=== PATIENT | male | born 1940 | race Caucasian/White ===

== ENCOUNTER 2017-01-01 13:34 | Emergency (ER) | payer MEDICARE ==
[2017-01-01] MEDS ORDERED: IPRATROPIUM 0.5 MG/2.5 ML NEBU INHALATION STA (13:48)
[2017-01-01] MEDS ORDERED: SODIUM CHLORIDE 0.9% 1,000 ML IV STA (13:48)
[2017-01-01] MEDS ORDERED: ALBUTEROL NEBULIZED 2.5 MG/3 ML INHALATION STA (13:48)
--- NOTE | 2017-01-01 14:16 | ED ---
General Adult HPI - General Chief complaint: Shortness of Breath Stated complaint: SOB/Cogestion Time Seen by Provider: 01/01/17 13:47 Source: patient, RN notes reviewed, old records reviewed Mode of arrival: ambulatory Limitations: no limitations - History of Present Illness Initial comments: This is a 76-year-old male out of the ER for evaluation complaining of shortness of breath, congestion and cough. Patient has been outpatient treatment for pneumonia 3 although all of Augmentin, Z-Miguelito and Levaquin. Patient is continuing not to feel well, feels weak consistently short of breath and shortness of breath with exertion. Patient has episodic fevers, does become shaky, has a history of smoking no history of heart disease but no prior cardiac or hospital evaluation. At this time patient has no specific complaints and no pain no travel history no sick contacts - Related Data Home Medications Medication Instructions Recorded Confirmed No Known Home Medications [No 01/01/17 01/01/17 Known Home Medications] Allergies Allergy/AdvReac Type Severity Reaction Status Date / Time No Known Allergies Allergy Verified 01/01/17 14:49 Review of Systems ROS Statement: Those systems with pertinent positive or pertinent negative responses have been documented in the HPI. ROS Other: All systems not noted in ROS Statement are negative. Past Medical History Additional Past Medical History / Comment(s): pneumonia History of Any Multi-Drug Resistant Organisms: None Reported Past Surgical History: No Surgical Hx Reported Past Psychological History: No Psychological Hx Reported Smoking Status: Former smoker Past Alcohol Use History: None Reported, Rare Past Drug Use History: None Reported General Exam Limitations: no limitations General appearance: alert, in no apparent distress Head exam: Present: atraumatic, normocephalic, normal inspection Eye exam: Present: normal appearance, PERRL, EOMI. Absent: scleral icterus, conjunctival injection, periorbital swelling ENT exam: Present: normal exam, mucous membranes moist Neck exam: Present: normal inspection. Absent: tenderness, meningismus, lymphadenopathy Respiratory exam: Present: normal lung sounds bilaterally. Absent: respiratory distress, wheezes, rales, rhonchi, stridor Cardiovascular Exam: Present: regular rate, normal rhythm, normal heart sounds. Absent: systolic murmur, diastolic murmur, rubs, gallop, clicks GI/Abdominal exam: Present: soft, normal bowel sounds. Absent: distended, tenderness, guarding, rebound, rigid Extremities exam: Present: normal inspection, full ROM, normal capillary refill. Absent: tenderness, pedal edema, joint swelling, calf tenderness Back exam: Present: normal inspection Neurological exam: Present: alert, oriented X3, CN II-XII intact Psychiatric exam: Present: normal affect, normal mood Skin exam: Present: warm, dry, intact, normal color. Absent: rash Course Vital Signs 01/01/17 01/01/17 01/01/17 13:42 13:58 14:15 Temperature 99.1 F Pulse Rate 78 78 Respiratory 23 20 Rate Blood Pressure 93/59 O2 Sat by Pulse 96 Oximetry 01/01/17 01/01/17 01/01/17 14:19 14:36 15:28 Temperature Pulse Rate 78 78 91 Respiratory 20 20 Rate Blood Pressure 116/55 110/56 O2 Sat by Pulse 100 96 Oximetry - Reevaluation(s) Reevaluation #1: 01/01/17 14:52 Medical record reviewed including prior antibiotic use EKG Findings - EKG Comments: EKG Findings:: EKG shows normal sinus rhythm rate of 74, SC 140, QRS 86, QTC 441 Medical Decision Making - Medical Decision Making 70 formality ER for evaluation of weakness fatigue shortness of breath with exertion acute on chronic bronchitis with likely new diagnosis of bronchitis secondary to smoking, patient also flew positive, we'll treat her probably, patient follow-up with pulmonology - Lab Data Result diagrams: 01/01/17 14:10 01/01/17 14:10 Lab Results 01/01/17 01/01/17 01/01/17 Range/Units 14:10 14:10 14:10 WBC 6.6 (3.8-10.6) k/uL RBC 4.44 (4.30-5.90) m/uL Hgb 13.4 (13.0-17.5) gm/dL Hct 40.3 (39.0-53.0) % MCV 90.7 (80.0-100.0) fL MCH 30.2 (25.0-35.0) pg MCHC 33.3 (31.0-37.0) g/dL RDW 14.7 (11.5-15.5) % Plt Count 140 L (150-450) k/uL Neutrophils % 65 % Lymphocytes % 18 % Monocytes % 12 % Eosinophils % 1 % Basophils % 1 % Neutrophils # 4.3 (1.3-7.7) k/uL Lymphocytes # 1.2 (1.0-4.8) k/uL Monocytes # 0.8 (0-1.0) k/uL Eosinophils # 0.1 (0-0.7) k/uL Basophils # 0.0 (0-0.2) k/uL PT (9.0-12.0) sec INR (<1.1) APTT (22.0-30.0) sec D-Dimer (<0.60) mg/L FEU Sodium 138 (137-145) mmol/L Potassium 4.0 (3.5-5.1) mmol/L Chloride 104 (98-107) mmol/L Carbon Dioxide 26 (22-30) mmol/L Anion Gap 8 mmol/L BUN 14 (9-20) mg/dL Creatinine 0.96 (0.66-1.25) mg/dL Est GFR (MDRD) Af Amer >60 (>60 ml/min/1.73 sqM) Est GFR (MDRD) Non-Af >60 (>60 ml/min/1.73 sqM) Glucose 92 (74-99) mg/dL Calcium 9.1 (8.4-10.2) mg/dL Magnesium 2.0 (1.6-2.3) mg/dL Total Bilirubin 0.6 (0.2-1.3) mg/dL AST 19 (17-59) U/L ALT 26 (21-72) U/L Alkaline Phosphatase 62 (38-126) U/L Total Creatine Kinase 68 (55-170) U/L CK-MB (CK-2) 0.6 (0.0-2.4) ng/mL CK-MB (CK-2) Rel Index 0.9 Troponin I 0.014 (0.000-0.034) ng/mL NT-Pro-B Natriuret Pep pg/mL Total Protein 6.3 (6.3-8.2) g/dL Albumin 3.7 (3.5-5.0) g/dL Influenza Type A RNA (Not Detectd) Influenza Type B (PCR) (Not Detectd) 01/01/17 01/01/17 01/01/17 Range/Units 14:10 14:10 14:10 WBC (3.8-10.6) k/uL RBC (4.30-5.90) m/uL Hgb (13.0-17.5) gm/dL Hct (39.0-53.0) % MCV (80.0-100.0) fL MCH (25.0-35.0) pg MCHC (31.0-37.0) g/dL RDW (11.5-15.5) % Plt Count (150-450) k/uL Neutrophils % % Lymphocytes % % Monocytes % % Eosinophils % % Basophils % % Neutrophils # (1.3-7.7) k/uL Lymphocytes # (1.0-4.8) k/uL Monocytes # (0-1.0) k/uL Eosinophils # (0-0.7) k/uL Basophils # (0-0.2) k/uL PT 11.1 (9.0-12.0) sec INR 1.1 (<1.1) APTT 26.7 (22.0-30.0) sec D-Dimer 0.42 (<0.60) mg/L FEU Sodium (137-145) mmol/L Potassium (3.5-5.1) mmol/L Chloride (98-107) mmol/L Carbon Dioxide (22-30) mmol/L Anion Gap mmol/L BUN (9-20) mg/dL Creatinine (0.66-1.25) mg/dL Est GFR (MDRD) Af Amer (>60 ml/min/1.73 sqM) Est GFR (MDRD) Non-Af (>60 ml/min/1.73 sqM) Glucose (74-99) mg/dL Calcium (8.4-10.2) mg/dL Magnesium (1.6-2.3) mg/dL Total Bilirubin (0.2-1.3) mg/dL AST (17-59) U/L ALT (21-72) U/L Alkaline Phosphatase (38-126) U/L Total Creatine Kinase (55-170) U/L CK-MB (CK-2) (0.0-2.4) ng/mL CK-MB (CK-2) Rel Index Troponin I (0.000-0.034) ng/mL NT-Pro-B Natriuret Pep 2490 pg/mL Total Protein (6.3-8.2) g/dL Albumin (3.5-5.0) g/dL Influenza Type A RNA (Not Detectd) Influenza Type B (PCR) (Not Detectd) 01/01/17 Range/Units 14:15 WBC (3.8-10.6) k/uL RBC (4.30-5.90) m/uL Hgb (13.0-17.5) gm/dL Hct (39.0-53.0) % MCV (80.0-100.0) fL MCH (25.0-35.0) pg MCHC (31.0-37.0) g/dL RDW (11.5-15.5) % Plt Count (150-450) k/uL Neutrophils % % Lymphocytes % % Monocytes % % Eosinophils % % Basophils % % Neutrophils # (1.3-7.7) k/uL Lymphocytes # (1.0-4.8) k/uL Monocytes # (0-1.0) k/uL Eosinophils # (0-0.7) k/uL Basophils # (0-0.2) k/uL PT (9.0-12.0) sec INR (<1.1) APTT (22.0-30.0) sec D-Dimer (<0.60) mg/L FEU Sodium (137-145) mmol/L Potassium (3.5-5.1) mmol/L Chloride (98-107) mmol/L Carbon Dioxide (22-30) mmol/L Anion Gap mmol/L BUN (9-20) mg/dL Creatinine (0.66-1.25) mg/dL Est GFR (MDRD) Af Amer (>60 ml/min/1.73 sqM) Est GFR (MDRD) Non-Af (>60 ml/min/1.73 sqM) Glucose (74-99) mg/dL Calcium (8.4-10.2) mg/dL Magnesium (1.6-2.3) mg/dL Total Bilirubin (0.2-1.3) mg/dL AST (17-59) U/L ALT (21-72) U/L Alkaline Phosphatase (38-126) U/L Total Creatine Kinase (55-170) U/L CK-MB (CK-2) (0.0-2.4) ng/mL CK-MB (CK-2) Rel Index Troponin I (0.000-0.034) ng/mL NT-Pro-B Natriuret Pep pg/mL Total Protein (6.3-8.2) g/dL Albumin (3.5-5.0) g/dL Influenza Type A RNA Detected A (Not Detectd) Influenza Type B (PCR) Not Detected (Not Detectd) - Radiology Data Radiology results: report reviewed (Chest x-ray as no change from prior), image reviewed Disposition Clinical Impression: Acute exacerbation of chronic obstructive airways disease, Influenza A Disposition: HOME SELF-CARE Condition: Good Instructions: Acute Bronchitis (ED), Chronic Bronchitis (ED), Influenza (ED) Referrals: Waqar Rai Jr, [Primary Care Provider] - 1-2 days
[2017-01-01 14:33] LABS: Basophils % (A) 1 %; CH 30.9; CHCM 34.2; Eosinophils # (A) 0.1 k/uL (0-0.7); Eosinophils % (A) 1 %; HCT 40.3 % (39.0-53.0); HDW 2.48; HGB 13.4 gm/dL (13.0-17.5); Luc # (Auto) 0.19; Luc % (Auto) 3; Lymphocytes # (A) 1.2 k/uL (1.0-4.8); Lymphocytes % (A) 18 %; MCH 30.2 pg (25.0-35.0); MCHC 33.3 g/dL (31.0-37.0); MCV 90.7 fL (80.0-100.0); Mean Platelet Volume 8.7; Monocytes # (A) 0.8 k/uL (0-1.0); Monocytes % (A) 12 %; Neutrophils # (A) 4.3 k/uL (1.3-7.7); Neutrophils % (A) 65 %; RBC 4.44 m/uL (4.30-5.90); RDW 14.7 % (11.5-15.5); WBC 6.6 k/uL (3.8-10.6); WBC (Perox) 7.06
[2017-01-01 14:43] LABS: ALT 26 U/L (21-72); AST 19 U/L (17-59); Alkaline Phosphatase 62 U/L (38-126); Anion Gap 8 mmol/L; Blood Urea Nitrogen 14 mg/dL (9-20); Calcium 9.1 mg/dL (8.4-10.2); Carbon Dioxide 26 mmol/L (22-30); Chloride 104 mmol/L (98-107); Glucose 92 mg/dL (74-99); Non-African American GFR(MDRD) >60 (>60 ml/min/1.73 sqM); Sodium 138 mmol/L (137-145); Total Bilirubin 0.6 mg/dL (0.2-1.3); Total Protein 6.3 g/dL (6.3-8.2)
[2017-01-01 14:47] LABS: INR 1.1 (<1.1); Partial Thromboplastin Time 26.7 sec (22.0-30.0); Prothrombin Time 11.1 sec (9.0-12.0)
--- NOTE | 2017-01-01 15:02 | XR ---
EXAMINATION TYPE: XR chest 2V DATE OF EXAM: 01/01/2017 2:53 PM COMPARISON: None HISTORY: 76-year-old male difficulty breathing TECHNIQUE: PA and lateral views FINDINGS: The heart is upper limits of normal in size. Aorta within normal limits. There is interstitial promin ence and hyperinflation with flattening of the hemidiaphragms. Some patchy right lower lung opacity i s present. No pleural effusion. IMPRESSION: COPD with some patchy right lower lung atelectasis or infiltrate.
[2017-01-01] MEDS ORDERED: DEXAMETHASONE SOD PHOSPHATE 10 MG/ML 1 ML VIAL IV STA (15:03)
[2017-01-01 15:06] LABS: Creatine Kinase MB 0.6 ng/mL (0.0-2.4); Troponin I 0.014 ng/mL (0.000-0.034)
[2017-01-01 16:13] VITALS: BP 119/61; PULSE 100; RESP 18; TEMP 97
== END 2017-01-01 16:12 | disposition home or self-care (01) ==
LOC: EC 13:34
DX: J10.1 Influenza due to other identified influenza virus with other respiratory manifestations (principal); J44.1 Chronic obstructive pulmonary disease with (acute) exacerbation; Z87.891 Personal history of nicotine dependence; Z87.01 Personal history of pneumonia (recurrent)
CPT/HCPCS: 36415; 94644; 93005; 85379; 83880; 80053; 82550; 82553; 83735; 84484; 85025; 85610; 85730; 87040; 87502; 71020; 99285; 96374; 96361; J1100

== ENCOUNTER 2017-01-04 19:26 | Inpatient (IN) | payer MEDICARE ==
[2017-01-04] MEDS ORDERED: ACETAMINOPHEN TAB 500 MG TAB PO STA (20:36)
[2017-01-04] MEDS ORDERED: IPRATROPIUM-ALBUTEROL 3 ML NEB INHALATION STA (20:37)
--- NOTE | 2017-01-04 20:39 | ED ---
General Adult HPI - General Chief complaint: Shortness of Breath Stated complaint: BAILEY Time Seen by Provider: 01/04/17 20:31 Source: patient, RN notes reviewed Mode of arrival: ambulatory Limitations: no limitations - History of Present Illness Initial comments: Patient is a pleasant 76-year-old male presenting to the emergency department difficulty breathing. Patient has been dealing with pneumonia injury mainly for the past several weeks. Patient has seen his doctor for times. Patient was in the emergency department 3 days ago and diagnosed with influenza. Patient has had increased dyspnea since that time. Patient occasionally uses an inhaler however denies any chronic lung problems. Patient has had fevers however none in the past 3 or 4 days. - Related Data Home Medications Medication Instructions Recorded Confirmed Albuterol Inhaler [Ventolin Hfa 1 - 2 puff INHALATION RT-Q6H PRN 01/04/17 Inhaler] Ibuprofen [Motrin] 200 - 400 mg PO Q6HR PRN 01/04/17 01/04/17 predniSONE 50 mg PO HS 01/04/17 01/04/17 Allergies Allergy/AdvReac Type Severity Reaction Status Date / Time No Known Allergies Allergy Verified 01/04/17 20:54 Review of Systems ROS Statement: Those systems with pertinent positive or pertinent negative responses have been documented in the HPI. ROS Other: All systems not noted in ROS Statement are negative. Constitutional: Denies: fever Eyes: Denies: eye pain ENT: Denies: ear pain Respiratory: Reports: cough, dyspnea Cardiovascular: Denies: chest pain Endocrine: Reports: fatigue Gastrointestinal: Denies: abdominal pain Genitourinary: Denies: dysuria Musculoskeletal: Denies: back pain Skin: Denies: rash Neurological: Denies: weakness Past Medical History Additional Past Medical History / Comment(s): pneumonia History of Any Multi-Drug Resistant Organisms: None Reported Past Surgical History: Appendectomy Past Psychological History: No Psychological Hx Reported Smoking Status: Former smoker Past Alcohol Use History: None Reported, Rare Past Drug Use History: None Reported General Exam Limitations: no limitations General appearance: alert, in no apparent distress Head exam: Present: atraumatic Eye exam: Present: normal appearance, PERRL ENT exam: Present: normal oropharynx Neck exam: Present: normal inspection Respiratory exam: Present: wheezes Cardiovascular Exam: Present: regular rate, normal rhythm GI/Abdominal exam: Present: soft. Absent: tenderness Extremities exam: Present: normal inspection. Absent: pedal edema, calf tenderness Neurological exam: Present: alert Psychiatric exam: Present: normal affect, normal mood Skin exam: Absent: rash Course Vital Signs 01/04/17 01/04/17 01/04/17 19:44 21:14 21:25 Temperature 99.3 F Pulse Rate 112 H 110 H 110 H Respiratory 20 Rate Blood Pressure 122/77 O2 Sat by Pulse 94 L Oximetry 01/04/17 01/04/17 01/04/17 21:49 22:00 22:45 Temperature 102.2 F H Pulse Rate 101 H 84 Respiratory 20 18 Rate Blood Pressure 141/77 114/64 O2 Sat by Pulse 94 L 95 Oximetry - Reevaluation(s) Reevaluation #1: 01/04/17 22:26 Patient does meet sepsis criteria. IV antibiotics will be started. Dr. Adri gallegos. EKG Findings - EKG Comments: EKG Findings:: Sinus tachycardia 110. MA 156. QRS 80. QT 324. QTC 438. Left axis. Normal QRS. Nonspecific T waves. Medical Decision Making - Medical Decision Making Patient does meet sepsis criteria with pneumonia. Patient also has influenza. Case discussed in detail with Dr. Ty, who will admit for Dr. Rush. Consult for Dr. Posada. Admission orders written. IV antibiotics have been started. - Lab Data Result diagrams: 01/04/17 21:02 01/04/17 21:02 Lab Results 01/04/17 01/04/17 01/04/17 Range/Units 21:00 21:02 21:02 WBC 11.0 H (3.8-10.6) k/uL RBC 4.50 (4.30-5.90) m/uL Hgb 13.5 (13.0-17.5) gm/dL Hct 41.4 (39.0-53.0) % MCV 91.9 (80.0-100.0) fL MCH 30.1 (25.0-35.0) pg MCHC 32.7 (31.0-37.0) g/dL RDW 14.7 (11.5-15.5) % Plt Count 150 (150-450) k/uL Neutrophils % 79 % Lymphocytes % 12 % Monocytes % 7 % Eosinophils % 1 % Basophils % 0 % Neutrophils # 8.6 H (1.3-7.7) k/uL Lymphocytes # 1.3 (1.0-4.8) k/uL Monocytes # 0.8 (0-1.0) k/uL Eosinophils # 0.1 (0-0.7) k/uL Basophils # 0.0 (0-0.2) k/uL PT (9.0-12.0) sec INR (<1.1) APTT (22.0-30.0) sec Sodium (137-145) mmol/L Potassium (3.5-5.1) mmol/L Chloride (98-107) mmol/L Carbon Dioxide (22-30) mmol/L Anion Gap mmol/L BUN (9-20) mg/dL Creatinine (0.66-1.25) mg/dL Est GFR (MDRD) Af Amer (>60 ml/min/1.73 sqM) Est GFR (MDRD) Non-Af (>60 ml/min/1.73 sqM) Glucose (74-99) mg/dL Plasma Lactic Acid Nolberto (0.7-2.0) mmol/L Calcium (8.4-10.2) mg/dL Total Bilirubin (0.2-1.3) mg/dL AST (17-59) U/L ALT (21-72) U/L Alkaline Phosphatase (38-126) U/L Total Creatine Kinase 158 (55-170) U/L CK-MB (CK-2) 2.7 H* (0.0-2.4) ng/mL CK-MB (CK-2) Rel Index 1.7 Troponin I <0.012 (0.000-0.034) ng/mL NT-Pro-B Natriuret Pep pg/mL Total Protein (6.3-8.2) g/dL Albumin (3.5-5.0) g/dL Cortisol ug/dL Urine Color Urine Appearance (Clear) Urine pH (5.0-8.0) Ur Specific [place] (1.001-1.035) Urine Protein (Negative) Urine Glucose (UA) (Negative) Urine Ketones (Negative) Urine Blood (Negative) Urine Nitrate (Negative) Urine Bilirubin (Negative) Urine Urobilinogen (<2.0) mg/dL Ur Leukocyte Esterase (Negative) Influenza Type A RNA Detected A (Not Detectd) Influenza Type B (PCR) Not Detected (Not Detectd) 01/04/17 01/04/17 01/04/17 Range/Units 21:02 21:02 21:02 WBC (3.8-10.6) k/uL RBC (4.30-5.90) m/uL Hgb (13.0-17.5) gm/dL Hct (39.0-53.0) % MCV (80.0-100.0) fL MCH (25.0-35.0) pg MCHC (31.0-37.0) g/dL RDW (11.5-15.5) % Plt Count (150-450) k/uL Neutrophils % % Lymphocytes % % Monocytes % % Eosinophils % % Basophils % % Neutrophils # (1.3-7.7) k/uL Lymphocytes # (1.0-4.8) k/uL Monocytes # (0-1.0) k/uL Eosinophils # (0-0.7) k/uL Basophils # (0-0.2) k/uL PT 10.3 (9.0-12.0) sec INR 1.0 (<1.1) APTT 25.4 (22.0-30.0) sec Sodium 139 (137-145) mmol/L Potassium 3.8 (3.5-5.1) mmol/L Chloride 103 (98-107) mmol/L Carbon Dioxide 26 (22-30) mmol/L Anion Gap 10 mmol/L BUN 11 (9-20) mg/dL Creatinine 0.90 (0.66-1.25) mg/dL Est GFR (MDRD) Af Amer >60 (>60 ml/min/1.73 sqM) Est GFR (MDRD) Non-Af >60 (>60 ml/min/1.73 sqM) Glucose 100 H (74-99) mg/dL Plasma Lactic Acid Nolberto 1.2 (0.7-2.0) mmol/L Calcium 8.6 (8.4-10.2) mg/dL Total Bilirubin 0.6 (0.2-1.3) mg/dL AST 25 (17-59) U/L ALT 35 (21-72) U/L Alkaline Phosphatase 71 (38-126) U/L Total Creatine Kinase (55-170) U/L CK-MB (CK-2) (0.0-2.4) ng/mL CK-MB (CK-2) Rel Index Troponin I (0.000-0.034) ng/mL NT-Pro-B Natriuret Pep pg/mL Total Protein 6.5 (6.3-8.2) g/dL Albumin 3.9 (3.5-5.0) g/dL Cortisol 8 ug/dL Urine Color Urine Appearance (Clear) Urine pH (5.0-8.0) Ur Specific [place] (1.001-1.035) Urine Protein (Negative) Urine Glucose (UA) (Negative) Urine Ketones (Negative) Urine Blood (Negative) Urine Nitrate (Negative) Urine Bilirubin (Negative) Urine Urobilinogen (<2.0) mg/dL Ur Leukocyte Esterase (Negative) Influenza Type A RNA (Not Detectd) Influenza Type B (PCR) (Not Detectd) 01/04/17 01/04/17 Range/Units 21:02 21:02 WBC (3.8-10.6) k/uL RBC (4.30-5.90) m/uL Hgb (13.0-17.5) gm/dL Hct (39.0-53.0) % MCV (80.0-100.0) fL MCH (25.0-35.0) pg MCHC (31.0-37.0) g/dL RDW (11.5-15.5) % Plt Count (150-450) k/uL Neutrophils % % Lymphocytes % % Monocytes % % Eosinophils % % Basophils % % Neutrophils # (1.3-7.7) k/uL Lymphocytes # (1.0-4.8) k/uL Monocytes # (0-1.0) k/uL Eosinophils # (0-0.7) k/uL Basophils # (0-0.2) k/uL PT (9.0-12.0) sec INR (<1.1) APTT (22.0-30.0) sec Sodium (137-145) mmol/L Potassium (3.5-5.1) mmol/L Chloride (98-107) mmol/L Carbon Dioxide (22-30) mmol/L Anion Gap mmol/L BUN (9-20) mg/dL Creatinine (0.66-1.25) mg/dL Est GFR (MDRD) Af Amer (>60 ml/min/1.73 sqM) Est GFR (MDRD) Non-Af (>60 ml/min/1.73 sqM) Glucose (74-99) mg/dL Plasma Lactic Acid Nolberto (0.7-2.0) mmol/L Calcium (8.4-10.2) mg/dL Total Bilirubin (0.2-1.3) mg/dL AST (17-59) U/L ALT (21-72) U/L Alkaline Phosphatase (38-126) U/L Total Creatine Kinase (55-170) U/L CK-MB (CK-2) (0.0-2.4) ng/mL CK-MB (CK-2) Rel Index Troponin I (0.000-0.034) ng/mL NT-Pro-B Natriuret Pep 1820 pg/mL Total Protein (6.3-8.2) g/dL Albumin (3.5-5.0) g/dL Cortisol ug/dL Urine Color Yellow Urine Appearance Clear (Clear) Urine pH 5.5 (5.0-8.0) Ur Specific [place] 1.011 (1.001-1.035) Urine Protein Negative (Negative) Urine Glucose (UA) Negative (Negative) Urine Ketones Negative (Negative) Urine Blood Negative (Negative) Urine Nitrate Negative (Negative) Urine Bilirubin Negative (Negative) Urine Urobilinogen <2.0 (<2.0) mg/dL Ur Leukocyte Esterase Negative (Negative) Influenza Type A RNA (Not Detectd) Influenza Type B (PCR) (Not Detectd) - Radiology Data Radiology results: image reviewed (Chest x-ray shows bilateral pulmonary infiltrates.) Critical Care Time Critical Care Time: Yes Total Critical Care Time: 32 Disposition Clinical Impression: Pneumonia, Sepsis, Influenza Disposition: ADMITTED IP TO THIS HOSP
[2017-01-04] MEDS: SODIUM CHLORIDE 0.9% 500 ML IV SCH ×2 (21:10→21:11)
[2017-01-04 21:17] LABS: Basophils % (A) 0 %; CH 30.8; CHCM 33.7; Eosinophils # (A) 0.1 k/uL (0-0.7); Eosinophils % (A) 1 %; HCT 41.4 % (39.0-53.0); HDW 2.58; HGB 13.5 gm/dL (13.0-17.5); Luc % (Auto) 1; Lymphocytes # (A) 1.3 k/uL (1.0-4.8); Lymphocytes % (A) 12 %; MCH 30.1 pg (25.0-35.0); MCHC 32.7 g/dL (31.0-37.0); MCV 91.9 fL (80.0-100.0); Mean Platelet Volume 8.1; Monocytes # (A) 0.8 k/uL (0-1.0); Monocytes % (A) 7 %; Neutrophils # (A) 8.6 k/uL (1.3-7.7); Neutrophils % (A) 79 %; RDW 14.7 % (11.5-15.5); WBC (Perox) 10.71
[2017-01-04 21:22] LABS: Appearance,Urine Clear (Clear); Bilirubin,Urine Negative (Negative); Glucose,Urine (UA) Negative (Negative); Ketones,Urine Negative (Negative); Leukocyte Esterase,Urine Negative (Negative); Nitrite,Urine Negative (Negative); PH, Urine 5.5 (5.0-8.0); Protein,Urine Negative (Negative); Specific Gravity,Urine 1.011 (1.001-1.035); UA Billing (MACRO vs. MICRO) CHEM; Urobilinogen,Urine <2.0 mg/dL (<2.0)
[2017-01-04 21:28] LABS: ALT 35 U/L (21-72); AST 25 U/L (17-59); Alkaline Phosphatase 71 U/L (38-126); Anion Gap 10 mmol/L; Blood Urea Nitrogen 11 mg/dL (9-20); Calcium 8.6 mg/dL (8.4-10.2); Carbon Dioxide 26 mmol/L (22-30); Chloride 103 mmol/L (98-107); Glucose 100 mg/dL (74-99); Non-African American GFR(MDRD) >60 (>60 ml/min/1.73 sqM); Partial Thromboplastin Time 25.4 sec (22.0-30.0); Potassium 3.8 mmol/L (3.5-5.1); Prothrombin Time 10.3 sec (9.0-12.0); Sodium 139 mmol/L (137-145); Total Bilirubin 0.6 mg/dL (0.2-1.3); Total Protein 6.5 g/dL (6.3-8.2)
[2017-01-04 21:30] LABS: Creatine Kinase 158 U/L (55-170)
--- NOTE | 2017-01-04 21:41 | XR ---
EXAMINATION TYPE: XR chest 2V DATE OF EXAM: 01/04/2017 9:36 PM COMPARISON: 01/01/2017 HISTORY: Short of breath TECHNIQUE: Frontal and lateral views of the chest are obtained. FINDINGS: There is patchy bilateral pulmonary interstitial and alveolar infiltrates. Heart appears s lightly enlarged. There is very slight blunting of the costophrenic angles. There are no hilar masses . There are chest leads. IMPRESSION: There are new mild bilateral pulmonary infiltrates with small pleural effusions compared to last exam. This could relate to acute mild heart failure. Pneumonia cannot be excluded.
[2017-01-04 21:44] LABS: Troponin I <0.012 ng/mL (0.000-0.034)
[2017-01-04 21:45] LABS: Creatine Kinase MB 2.7 ng/mL (0.0-2.4)
[2017-01-04] MEDS ORDERED: LEVOFLOXACIN 750MG-D5W PMX 750 MG in DEXTROSE/WATER 1 150ML.BAG IVPB STA (22:26)
[2017-01-04] MEDS ORDERED: IBUPROFEN 600 MG TAB PO STA (22:37)
[2017-01-04] MEDS ORDERED: IPRATROPIUM-ALBUTEROL 3 ML NEB INHALATION PRN (22:55)
[2017-01-04] MEDS ORDERED: PIPERACILLIN-TAZOBACTAM 3.375 GM in DEXTROSE/WATER 1 50ML.BAG IVPB STA (22:55)
[2017-01-04] MEDS ORDERED: PNEUMONIA PROTOCOL UTILIZED 1 EACH MISC PO PRN (22:55)
[2017-01-04] MEDS: OSELTAMIVIR 75 MG CAP PO SCH (23:16)
[2017-01-04] MEDS: SODIUM CHLORIDE 0.9% 1,000 ML IV SCH (23:17)
[2017-01-04 23:50] VITALS: BMI 28.0
[2017-01-05 03:52] LABS: Creatine Kinase 138 U/L (55-170)
[2017-01-05 04:06] LABS: Creatine Kinase MB 1.8 ng/mL (0.0-2.4); Troponin I <0.012 ng/mL (0.000-0.034)
--- NOTE | 2017-01-05 08:02 | XR ---
EXAMINATION TYPE: XR chest 2V DATE OF EXAM: 01/05/2017 7:57 AM COMPARISON: 01/04/2017 HISTORY: Shortness of breath TECHNIQUE: Frontal and lateral views of the chest are obtained. FINDINGS: Scattered senescent parenchymal changes noted. Hyperinflation compatible with COPD. Stable scattered reticulonodular infiltrates. Heart size is stable. Mediastinal structures are stable and grossly unremarkable. No evidence for hilar prominence. Degenerative changes dorsal spine. IMPRESSION: 1. Stable chest.
[2017-01-05] MEDS: PIPERACILLIN-TAZOBACTAM 3.375 GM in DEXTROSE/WATER 1 50ML.BAG IVPB SCH ×2 (08:11→16:22)
[2017-01-05] MEDS: OSELTAMIVIR 75 MG CAP PO SCH ×2 (08:11→22:08)
[2017-01-05] MEDS: IPRATROPIUM-ALBUTEROL 3 ML NEB INHALATION SCH ×4 (08:45→19:26)
[2017-01-05 09:42] LABS: Creatine Kinase MB 2.3 ng/mL (0.0-2.4); Troponin I 0.013 ng/mL (0.000-0.034)
--- NOTE | 2017-01-05 11:59 | P.CNPUL ---
History of Present Illness Consult date: 01/05/17 Requesting physician: Sudeep Ty Reason for consult: abnormal CXR/CT (Patchy bilateral pulmonary interstitial and alveolar infiltrates) Chief complaint: Cough, congestion, shortness of breath History of present illness: This is a very pleasant 76-year-old gentleman who follows with Dr. Rai as his primary care physician. He is no significant medical history. He is on no home medications. He does have a 50+ years pack per day smoking history but denies any known COPD. He is not on any inhalers in the past. In November of this year he developed increasing shortness of breath cough and congestion. He was treated twice by his PCP and once in the emergency room without significant improvement. He presented here again yesterday with similar complaints of increasing shortness of breath cough and congestion. He was having worsening dyspnea on minimal activity. He has a loose productive cough of yellow sputum. No hemoptysis. His had a T-max of 102.2. Slightly tachycardic. Maintaining O2 saturations in the mid 90s on room air. White count 11.0. Lactic acid 1.2. He was found to be influenza A positive. ProBNP level 1820. His chest x-ray does show evidence of mild interstitial prominence and small pleural effusions. A recent chest x-ray also showed some patchy right lower lobe atelectasis/ infiltrate. The patient has been initiated on Tamiflu, Zosyn and Levaquin. Presently, he is sitting up in the chair at the bedside. He denies any worsening shortness of breath. He continues with a yellow productive sputum. No chills or night sweats. No diarrhea. Currently afebrile. Review of Systems 14 point review of system was conducted. All negative other than as mentioned in the HPI. Past Medical History Additional Past Medical History / Comment(s): pneumonia History of Any Multi-Drug Resistant Organisms: None Reported Past Surgical History: Appendectomy Past Anesthesia/Blood Transfusion Reactions: No Reported Reaction Past Psychological History: No Psychological Hx Reported Smoking Status: Former smoker Past Alcohol Use History: None Reported Past Drug Use History: None Reported - Past Family History Father Additional Family Medical History / Comment(s): EMPHYZEMA R/T WORK Medications and Allergies Home Medications Medication Instructions Recorded Confirmed Type Albuterol Inhaler [Ventolin Hfa 1 - 2 puff INHALATION RT-Q6H PRN 01/04/17 History Inhaler] Ibuprofen [Motrin] 200 - 400 mg PO Q6HR PRN 01/04/17 01/04/17 History predniSONE 50 mg PO HS 01/04/17 01/04/17 History Allergies Allergy/AdvReac Type Severity Reaction Status Date / Time No Known Allergies Allergy Verified 01/04/17 20:54 Physical Exam Vitals: Vital Signs Temp Pulse Pulse Resp BP BP Pulse Ox 01/05/17 07:00 98.2 F 99 16 118/76 97 01/05/17 02:32 84 01/05/17 02:30 97 01/05/17 02:29 87 01/04/17 23:20 98.3 F 88 18 131/64 94 L 01/04/17 22:55 97.9 F 86 18 106/68 91 L Intake and Output 01/04/17 01/05/17 01/05/17 22:59 06:59 14:59 Intake Total 1050 240 Output Total 600 Balance 1050 -360 Intake: IV 1050 Levofloxacin 750Mg-D5w 100 Pmx 750 mg In Dextrose/ Water 1 150ml.bag @ 100 mls/hr IVPB ONCE STA Rx#: [id number] Piperacillin-Tazobactam 3 50 .375 gm In Dextrose/Water 1 50ml.bag @ 12.5 mls/hr IVPB ONCE STA Rx#: [id number] Sodium Chloride 0.9% 1, 900 000 ml @ 100 mls/hr IV . Q10H [facility] Rx#:[id number] Oral 240 Output: Urine 600 Other: Voiding Method Toilet # Voids 3 Weight 86.183 kg GENERAL EXAM: Alert, comfortable in no apparent distress. HEAD: Normocephalic. EYES: Normal reaction of pupils, equal size. NOSE: Clear with pink turbinates. THROAT: No erythema or exudates. NECK: No masses, no JVD. CHEST: No chest wall deformity. LUNGS: Equal air entry with bilateral scattered rhonchi, faint crackles in the bases.. CVS: S1 and S2 normal with no audible murmurs, regular rhythm. ABDOMEN: No hepatosplenomegaly, normal bowel sounds, no guarding or rigidity. SPINE: No scoliosis or deformity SKIN: No rashes CENTRAL NERVOUS SYSTEM: No focal deficits, tone is normal in all 4 extremities. Extremities: There is no significant peripheral edema. No clubbing, no cyanosis. Peripheral pulses are intact. Results - Laboratory Findings CBC and BMP: 01/04/17 21:02 01/04/17 21:02 PT/INR, D-dimer PT 10.3 sec (9.0-12.0) 01/04/17 21:02 INR 1.0 (<1.1) 01/04/17 21:02 - Diagnostic Findings Chest x-ray: image reviewed Assessment and Plan Plan: Impression: #1 Dyspnea, multifactorial in a patient with suspected community-acquired pneumonia failed outpatient therapy, mild congestive heart failure, acute exacerbation of suspected chronic obstructive pulmonary disease, influenza A positivity. #2 Acute exacerbation of mild congestive heart failure, unclear if systolic versus diastolic and is not chronic in nature. #3 Acute exacerbation of suspected chronic obstructive pulmonary disease. #4 Chronic 50+ year pack per day smoking history. #5 Influenza A. Plan: The patient was seen and evaluated by Dr. Posada. His chest x-rays and labs were reviewed. We'll continue with his bronchodilators and current antibiotics in the form of Zosyn and Levaquin. We will give him a short course of steroids. He remains on Tamiflu. He may benefit from a dose of diuretics. An echocardiogram would be helpful to assess the patient's left ventricular systolic function. He is educated regarding the importance of complete smoking cessation. A NicoDerm patch has been offered. He would also benefit from a follow-up in our office to conduct full pulmonary function testing to evaluate for any chronic obstructive pulmonary disease and make recommendations for her maintenance medications. He remains on droplet precautions. We'll continue to follow make further recommendations based on his clinical status.
[2017-01-05] MEDS ORDERED: FUROSEMIDE 10 MG/ML 4 ML VIAL IV STA (12:02)
[2017-01-05] MEDS ORDERED: IBUPROFEN 400 MG TAB PO PRN (12:30)
--- NOTE | 2017-01-05 12:30 | P.HPIM ---
History of Present Illness H&P Date: 01/05/17 Chief Complaint: Shortness of breath Patient is a 76-year-old patient, patient of Dr. Rai in the outpatient setting, with medical history significant for pneumonia and previous nicotine dependence. Patient presented to the emergency department with complaints of difficulty breathing, cough and congestion. Onset of symptoms started approximately 3 weeks. Apparently patient was treated in the outpatient setting without significant improvement. Chest x-ray on admission with evidence of patchy bilateral pulmonary interstitial and alveolar infiltrates with small pleural effusions. Admission labs with evidence of mild leukocytosis and patient tested positive for influenza A. NT proBNP 1820. Patient did have a temperature of 102.2 upon admission with evidence of sinus tachycardia. Patient was admitted to the third floor with consult to Dr. Posada for pulmonary service. Upon examination, patient complains of shortness of breath with minimal activity. Patient reports productive sputum. Patient reports chills. Denies nausea, vomiting, chest pain, abdominal pain, numbness or tingling, leg swelling, constipation or diarrhea, new rashes or lesions. Patient reports good appetite. Patient currently oxygenating 97% on 2 L nasal cannula. Afebrile Patient has been initiated on antibiotics in the form of Levaquin, Zosyn, and Tamiflu. Repeat chest x-ray from this morning with evidence of hyperinflation compatible with COPD, and stable scattered reticulonodular infiltrates. Past Medical History Additional Past Medical History / Comment(s): pneumonia History of Any Multi-Drug Resistant Organisms: None Reported Past Surgical History: Appendectomy Past Anesthesia/Blood Transfusion Reactions: No Reported Reaction Past Psychological History: No Psychological Hx Reported Smoking Status: Former smoker Past Alcohol Use History: None Reported Past Drug Use History: None Reported - Past Family History Father Additional Family Medical History / Comment(s): EMPHYZEMA R/T WORK Medications and Allergies Home Medications Medication Instructions Recorded Confirmed Type Albuterol Inhaler [Ventolin Hfa 1 - 2 puff INHALATION RT-Q6H PRN 01/04/17 History Inhaler] Ibuprofen [Motrin] 200 - 400 mg PO Q6HR PRN 01/04/17 01/04/17 History predniSONE 50 mg PO HS 01/04/17 01/04/17 History Allergies Allergy/AdvReac Type Severity Reaction Status Date / Time No Known Allergies Allergy Verified 01/04/17 20:54 Physical Exam Vitals: Vital Signs Temp Pulse Pulse Resp BP BP Pulse Ox 01/05/17 07:00 98.2 F 99 16 118/76 97 01/05/17 02:32 84 01/05/17 02:30 97 01/05/17 02:29 87 01/04/17 23:20 98.3 F 88 18 131/64 94 L 01/04/17 22:55 97.9 F 86 18 106/68 91 L Intake and Output 01/04/17 01/05/17 01/05/17 22:59 06:59 14:59 Intake Total 1050 240 Output Total 600 Balance 1050 -360 Intake: IV 1050 Levofloxacin 750Mg-D5w 100 Pmx 750 mg In Dextrose/ Water 1 150ml.bag @ 100 mls/hr IVPB ONCE STA Rx#: [id number] Piperacillin-Tazobactam 3 50 .375 gm In Dextrose/Water 1 50ml.bag @ 12.5 mls/hr IVPB ONCE STA Rx#: [id number] Sodium Chloride 0.9% 1, 900 000 ml @ 100 mls/hr IV . Q10H [facility] Rx#:[id number] Oral 240 Output: Urine 600 Other: Voiding Method Toilet # Voids 3 Weight 86.183 kg GENERAL: Pt awake and alert, well-appearing, well-nourished, and in no acute distress. HEAD: Atraumatic, normocephalic. EYES: Pupils equal and round. Sclera anicteric, conjunctiva are normal. ENT: Moist mucous membranes. NECK:Normal range of motion, supple without lymphadenopathy or JVD. LUNGS: Breath sounds with scattered rhonchi to auscultation bilaterally. Crackles to posterior bases. HEART: Heart S1, S2, no S3 or S4. Regular rate and rhythm. No murmurs, rubs or gallops. ABDOMEN: Soft, nontender, nondistended, normoactive bowel sounds. No guarding, no rebound. No masses or organomegaly appreciated. EXTREMITIES: Palpable peripheral pulses. No edema. No calf tenderness. NEUROLOGICAL: Pt oriented x 3. No focal deficits. Strength and sensation grossly intact. PSYCH: Normal mood, normal affect. SKIN: Warm, dry, intact. Normal turgor. No rashes or lesions. Results CBC & Chem 7: 01/04/17 21:02 01/04/17 21:02 Chest x-ray: report reviewed Thrombosis Risk Factor Assmnt - DVT/VTE Prophylaxis DVT/VTE Prophylaxis: Low risk, early ambulation encouraged - Choose All That Apply Any of the Below Risk Factors Present?: No Other Risk Factors: Yes Each Risk Factor Represents 2 Points: Age 61-74 years Other congenital or acquired thrombophilia - If yes, enter type in comment: No Thrombosis Risk Factor Assessment Total Risk Factor Score: 2 Thrombosis Risk Factor Assessment Level: Low Risk Assessment and Plan Plan: Impression and plan: 1. Sepsis suspect secondary to bradycardia acquired pneumonia, failed outpatient treatment. Continue IV Levaquin and IV Zosyn for empiric coverage. 2. Acute congestive heart failure, type unknown. Echocardiogram pending. Lasix 40 mg IV given. 3. Influenza A. Continue Tamiflu 75 mg by mouth twice a day. 4. Acute exacerbation of COPD. Continue nebulized updraft treatments, supplemental oxygen, Solu-Medrol 60 mg IV every 6. 5. Nicotine dependence. Nicotine patch ordered. Smoking cessation encouraged. 6. DVT prophylaxis. Encourage early ambulation. 7. GI prophylaxis. Continue Pepcid 20 mg daily. Continue to monitor patient. Continue supportive treatment and pain management. Continue to follow with pulmonary service. Repeat CBC and BMP in a.m. The above impression and plan have been discussed and directed by Dr. Ty. Shelli CURRIE acting as scribe for Dr. Ty.
[2017-01-05] MEDS: SODIUM CHLORIDE 0.9% 1,000 ML IV SCH ×2 (13:15→22:04)
[2017-01-05] MEDS: methylPREDNISolone SOD SUCCI 125 MG/2 ML VIAL IV SCH ×2 (13:16→18:03)
[2017-01-05] MEDS: FAMOTIDINE 20 MG TAB PO SCH (13:35)
[2017-01-05] MEDS ORDERED: INSULIN LISPRO (humaLOG) 300 UNIT/3 ML VIAL SQ SCH (16:00)
[2017-01-05 17:25] LABS: Glucose,Whole Blood 136 mg/dL (75-99)
[2017-01-05] MEDS: INSULIN LISPRO (humaLOG) 300 UNIT/3 ML VIAL SQ SCH (18:03)
[2017-01-05 21:40] LABS: Hemoglobin A1C 5.5 % (4.2-6.1)
[2017-01-05] MEDS ORDERED: LEVOFLOXACIN 750MG-D5W PMX 750 MG in DEXTROSE/WATER 1 150ML.BAG IVPB SCH (22:00)
[2017-01-05] MEDS: LEVOFLOXACIN 750 MG TAB PO SCH (22:08)
[2017-01-06 00:55] LABS: Glucose,Whole Blood 181 mg/dL (75-99)
[2017-01-06] MEDS: methylPREDNISolone SOD SUCCI 125 MG/2 ML VIAL IV SCH ×5 (01:15→23:39)
[2017-01-06] MEDS: PIPERACILLIN-TAZOBACTAM 3.375 GM in DEXTROSE/WATER 1 50ML.BAG IVPB SCH ×4 (01:15→22:56)
[2017-01-06] MEDS: INSULIN LISPRO (humaLOG) 300 UNIT/3 ML VIAL SQ SCH ×5 (01:46→22:59)
[2017-01-06 06:12] LABS: Glucose,Whole Blood 131 mg/dL (75-99)
[2017-01-06] MEDS: SODIUM CHLORIDE 0.9% 1,000 ML IV SCH ×3 (06:15→22:56)
[2017-01-06 08:34] LABS: Basophils # (A) 0.1 k/uL (0-0.2); Basophils % (A) 2 %; CH 30.5; CHCM 33.6; Eosinophils % (A) 0 %; HCT 37.9 % (39.0-53.0); HDW 2.57; HGB 12.8 gm/dL (13.0-17.5); Luc # (Auto) 0.08; Luc % (Auto) 1; Lymphocytes # (A) 0.4 k/uL (1.0-4.8); Lymphocytes % (A) 7 %; MCH 30.8 pg (25.0-35.0); MCHC 33.8 g/dL (31.0-37.0); MCV 91.3 fL (80.0-100.0); Mean Platelet Volume 8.6; Monocytes # (A) 0.2 k/uL (0-1.0); Monocytes % (A) 4 %; Neutrophils # (A) 4.9 k/uL (1.3-7.7); Neutrophils % (A) 86 %; RBC 4.15 m/uL (4.30-5.90); RDW 14.5 % (11.5-15.5); WBC 5.7 k/uL (3.8-10.6); WBC (Perox) 6.19
[2017-01-06] MEDS: IPRATROPIUM-ALBUTEROL 3 ML NEB INHALATION SCH ×4 (08:40→20:30)
[2017-01-06 08:46] LABS: Anion Gap 9 mmol/L; Blood Urea Nitrogen 15 mg/dL (9-20); Calcium 8.4 mg/dL (8.4-10.2); Carbon Dioxide 29 mmol/L (22-30); Chloride 100 mmol/L (98-107); Glucose 138 mg/dL (74-99); Non-African American GFR(MDRD) >60 (>60 ml/min/1.73 sqM); Potassium 3.8 mmol/L (3.5-5.1); Sodium 138 mmol/L (137-145)
[2017-01-06] MEDS: FAMOTIDINE 20 MG TAB PO SCH (09:22)
[2017-01-06] MEDS: OSELTAMIVIR 75 MG CAP PO SCH ×2 (09:22→21:55)
--- NOTE | 2017-01-06 11:03 | ECHOF ---
Referral Reason:CHF MEASUREMENTS -------- HEIGHT: 175.3 cm WEIGHT: 86.2 kg BP: RVIDd: 2.6 cm (< 3.3) IVSd: 1.3 cm (0.6 - 1.1) LVIDd: 5.1 cm (3.9 - 5.3) LVPWd: 1.4 cm (0.6 - 1.1) IVSs: 1.8 cm LVIDs: 3.8 cm LVPWs: 1.4 cm LA Diam: 3.3 cm (2.7 - 3.8) LAESV Index (A-L): 33.13 ml/m Ao Diam: 2.8 cm (2.0 - 3.7) AV Cusp: 2.0 cm (1.5 - 2.6) LA Diam: 3.9 cm (2.7 - 3.8) MV EXCURSION: 15.618 mm (> 18.000) MV EF SLOPE: 75 mm/s (70 - 150) EPSS: 1.5 cm MV E Sheldon: 0.68 m/s MV DecT: 165 ms MV A Sheldon: 0.42 m/s MV E/A Ratio: 1.60 FINDINGS -------- Sinus rhythm. This was a technically good study. There is mild concentric left ventricular hypertrophy. There is severe global hypokinesis of LV . Overall left ventricular systolic function is moderate-severely impaired with, an EF between 30 - 35 %. Pseudonormal LV filling pattern, consistent with elevated LA pressure. The right ventricle is normal in size. LA is moderately dilated 34-39 ml/m2 The right atrial size is normal. There is mild aortic valve sclerosis. There is no evidence of aortic regurgitation. Mild mitral annular calcification present. [id number] mitral regurgitation is present. Trace tricuspid regurgitation present. There is no evidence of pulmonary hypertension. The right ventricular systolic pressure, as measured by Doppler, is {RVSP}. There is no pulmonic regurgitation present. The aortic root size is normal. The inferior vena cava is dilated with poor inspiratory collapse which is consistent with estimated right atrial pressure of 20 mmHg. There is no pericardial effusion. CONCLUSIONS -------- 1. There is mild concentric left ventricular hypertrophy. 2. There is no evidence of pulmonary hypertension. 3. The right ventricular systolic pressure, as measured by Doppler, is {RVSP}. 4. The inferior vena cava is dilated with poor inspiratory collapse which is consistent with estimated right atrial pressure of 20 mmHg. 5. There is severe global hypokinesis of LV . 6. Overall left ventricular systolic function is moderate-severely impaired with, an EF between 30 - 35 %. 7. Pseudonormal LV filling pattern, consistent with elevate LA pressure. 8. LA is moderately dilated 34-39 ml/m2 9. There is mild aortic valve sclerosis. 10. Mild mitral annular calcification present. 11. [id number]-wy-[id number] mitral regurgitation is present. 12. Trace tricuspid regurgitation present. [employer]: June Justice RDCS
[2017-01-06 11:39] LABS: Glucose,Whole Blood 147 mg/dL (75-99)
--- NOTE | 2017-01-06 14:08 | P.PN ---
Subjective This is a very pleasant 76-year-old gentleman who follows with Dr. Rai as his primary care physician. He is no significant medical history. He is on no home medications. He does have a 50+ years pack per day smoking history but denies any known COPD. He is not on any inhalers in the past. In November of this year he developed increasing shortness of breath cough and congestion. He was treated twice by his PCP and once in the emergency room without significant improvement. He presented here again yesterday with similar complaints of increasing shortness of breath cough and congestion. He was having worsening dyspnea on minimal activity. He has a loose productive cough of yellow sputum. No hemoptysis. His had a T-max of 102.2. Slightly tachycardic. Maintaining O2 saturations in the mid 90s on room air. White count 11.0. Lactic acid 1.2. He was found to be influenza A positive. ProBNP level 1820. His chest x-ray does show evidence of mild interstitial prominence and small pleural effusions. A recent chest x-ray also showed some patchy right lower lobe atelectasis/ infiltrate. The patient has been initiated on Tamiflu, Zosyn and Levaquin. Presently, he is sitting up in the chair at the bedside. He denies any worsening shortness of breath. He continues with a yellow productive sputum. No chills or night sweats. No diarrhea. Currently afebrile. The patient is seen again today 01/06/2017 in follow-up on the regular medical floor. He is awake and alert in no acute distress. He states he is breathing quite a bit better today as compared to yesterday. Less dyspnea on minimal exertion. Less cough and congestion. He denies any fever, chills or night sweats. No nausea, vomiting or diarrhea. He's been afebrile. Currently maintaining O2 saturations in the mid 90s on room air. No tachycardia, no tachypnea. Blood and sputum cultures are pending. Urine culture reveals no growth. Objective - Vital Signs Vital signs: Vital Signs Temp 96.9 F L 01/06/17 13:39 Pulse 74 01/06/17 13:39 Resp 17 01/06/17 13:39 BP 98/65 01/06/17 13:39 Pulse Ox 94 L 01/06/17 13:39 Intake & Output 01/05/17 01/06/17 01/06/17 18:59 06:59 18:59 Intake Total 600 400 720 Output Total 1200 600 Balance -600 -200 720 Intake: IV 400 Sodium Chloride 0.9% 1, 400 000 ml @ 100 mls/hr IV . Q10H [facility] Rx#:[id number] Oral 600 720 Output: Urine 1200 600 Other: Voiding Method Urinal Urinal # Voids 2 - Exam GENERAL EXAM: Alert, comfortable in no apparent distress. HEAD: Normocephalic. EYES: Normal reaction of pupils, equal size. NOSE: Clear with pink turbinates. THROAT: No erythema or exudates. NECK: No masses, no JVD. CHEST: No chest wall deformity. LUNGS: Equal air entry with crackles in the left lung base. Diminished. CVS: S1 and S2 normal with no audible murmurs, regular rhythm. ABDOMEN: No hepatosplenomegaly, normal bowel sounds, no guarding or rigidity. SPINE: No scoliosis or deformity SKIN: No rashes CENTRAL NERVOUS SYSTEM: No focal deficits, tone is normal in all 4 extremities. Extremities: There is no significant peripheral edema. No clubbing, no cyanosis. Peripheral pulses are intact. - Labs CBC & Chem 7: 01/06/17 08:01 01/06/17 08:01 Labs: Abnormal Lab Results - Last 24 Hours (Table) 01/05/17 01/06/17 01/06/17 Range/Units 17:24 00:52 05:53 RBC (4.30-5.90) m/uL Hgb (13.0-17.5) gm/dL Hct (39.0-53.0) % Lymphocytes # (1.0-4.8) k/uL Glucose (74-99) mg/dL POC Glucose (mg/dL) 136 H 181 H 131 H (75-99) mg/dL 01/06/17 01/06/17 01/06/17 Range/Units 08:01 08:01 11:33 RBC 4.15 L (4.30-5.90) m/uL Hgb 12.8 L (13.0-17.5) gm/dL Hct 37.9 L (39.0-53.0) % Lymphocytes # 0.4 L (1.0-4.8) k/uL Glucose 138 H (74-99) mg/dL POC Glucose (mg/dL) 147 H (75-99) mg/dL Assessment and Plan Plan: Impression: #1 Dyspnea, multifactorial in a patient with suspected community-acquired pneumonia failed outpatient therapy, mild congestive heart failure, acute exacerbation of suspected chronic obstructive pulmonary disease, influenza A positivity. #2 Acute exacerbation of systolic congestive heart failure. Echocardiogram revealed severe global hypokinesia with moderate to severe. Left ventricular systolic function with estimated ejection fraction 30-35%. #3 Acute exacerbation of suspected chronic obstructive pulmonary disease. #4 Chronic 50+ year pack per day smoking history. #5 Influenza A. Plan: The patient was seen and evaluated by Dr. Posada. His echocardiogram was reviewed and there is severe global hypokinesia and an moderate to severely impaired left ventricular systolic function. A cardiology consult would be beneficial. The patient is improved today as compared to yesterday. We'll continue with his bronchodilators and current antibiotics in the form of Zosyn and Levaquin. We will give him a short course of steroids. He remains on Tamiflu. He is educated regarding the importance of complete smoking cessation. A NicoDerm patch has been offered. He remains on droplet precautions. We'll continue to follow make further recommendations based on his clinical status.
--- NOTE | 2017-01-06 14:22 | P.PN ---
Subjective Principal diagnosis: Pneumonia Patient is a 76-year-old patient, patient of Dr. Rai in the outpatient setting, with medical history significant for pneumonia and previous nicotine dependence. Patient presented to the emergency department with complaints of difficulty breathing, cough and congestion. Onset of symptoms started approximately 3 weeks. Apparently patient was treated in the outpatient setting without significant improvement. Patient was found to have evidence of sepsis secondary to community-acquired pneumonia, failed outpatient treatment and acute exacerbation of COPD. In addition patient tested positive for influenza A. Patient also had evidence of acute congestive heart failure with left ventricular systolic function moderate to severely impaired with an EF between 30-35% with no evidence of pulmonary hypertension. Patient was admitted to the medical floor with consult to Dr. Posada for pulmonary service. Consult has been requested for cardiology concerning new onset heart failure. Upon examination, patient reports improvement in breathing. Patient reports productive cough with thick yellow sputum. Denies nausea, vomiting, chest pain, abdominal pain, numbness or tingling, leg swelling, constipation or diarrhea. Patient reports good appetite. Patient currently oxygenating 94% on room air. Afebrile No evidence of leukocytosis. Objective - Vital Signs Vital signs: Vital Signs Temp 96.9 F L 01/06/17 13:39 Pulse 74 01/06/17 13:39 Resp 17 01/06/17 13:39 BP 98/65 01/06/17 13:39 Pulse Ox 94 L 01/06/17 13:39 Intake & Output 01/05/17 01/06/17 01/06/17 18:59 06:59 18:59 Intake Total 600 400 720 Output Total 1200 600 Balance -600 -200 720 Intake: IV 400 Sodium Chloride 0.9% 1, 400 000 ml @ 100 mls/hr IV . Q10H [facility] OF [facility] Rx#:[id number] Oral 600 720 Output: Urine 1200 600 Other: Voiding Method Urinal Urinal # Voids 2 - Exam GENERAL: Pt awake and alert, well-appearing, well-nourished, and in no acute distress. HEAD: Atraumatic, normocephalic. EYES: Pupils equal and round. Sclera anicteric, conjunctiva are normal. ENT: Moist mucous membranes. NECK:Normal range of motion, supple without lymphadenopathy or JVD. LUNGS: Breath sounds with scattered rhonchi to auscultation bilaterally with pronounced on the left side. HEART: Heart S1, S2, no S3 or S4. Regular rate and rhythm. No murmurs, rubs or gallops. ABDOMEN: Soft, nontender, nondistended, normoactive bowel sounds. No guarding, no rebound. No masses or organomegaly appreciated. EXTREMITIES: Palpable peripheral pulses. No edema. No calf tenderness. NEUROLOGICAL: Pt oriented x 3. No focal deficits. Strength and sensation grossly intact. PSYCH: Normal mood, normal affect. SKIN: Warm, dry, intact. Normal turgor. No rashes or lesions. - Labs CBC & Chem 7: 01/06/17 08:01 01/06/17 08:01 Labs: Abnormal Lab Results - Last 24 Hours (Table) 01/05/17 01/06/17 01/06/17 Range/Units 17:24 00:52 05:53 RBC (4.30-5.90) m/uL Hgb (13.0-17.5) gm/dL Hct (39.0-53.0) % Lymphocytes # (1.0-4.8) k/uL Glucose (74-99) mg/dL POC Glucose (mg/dL) 136 H 181 H 131 H (75-99) mg/dL 01/06/17 01/06/17 01/06/17 Range/Units 08:01 08:01 11:33 RBC 4.15 L (4.30-5.90) m/uL Hgb 12.8 L (13.0-17.5) gm/dL Hct 37.9 L (39.0-53.0) % Lymphocytes # 0.4 L (1.0-4.8) k/uL Glucose 138 H (74-99) mg/dL POC Glucose (mg/dL) 147 H (75-99) mg/dL Assessment and Plan Plan: Impression and plan: 1. Sepsis suspect secondary to bradycardia acquired pneumonia, failed outpatient treatment. Continue IV Levaquin and IV Zosyn for empiric coverage. Sputum culture pending. 2. Acute systolic congestive heart failure. Cardiology consult requested, recommendations pending. 3. Influenza A. Continue Tamiflu 75 mg by mouth twice a day. 4. Acute exacerbation of COPD. Continue nebulized updraft treatments, supplemental oxygen, Solu-Medrol 60 mg IV every 6 hours. Pulmonary service is following patient, will look for tapering of steroids when appropriate. 5. Nicotine dependence. Nicotine patch ordered. Smoking cessation encouraged. 6. DVT prophylaxis. Encourage early ambulation. 7. GI prophylaxis. Continue Pepcid 20 mg daily. Continue to monitor patient. Continue supportive treatment and pain management. Continue to follow with pulmonary service. Repeat CBC and BMP in a.m. The above impression and plan have been discussed and directed by Dr. Ty. Shelli CURRIE acting as scribe for Dr. Ty.
[2017-01-06 16:31] LABS: Glucose,Whole Blood 127 mg/dL (75-99)
[2017-01-06 20:43] LABS: Glucose,Whole Blood 178 mg/dL (75-99)
[2017-01-06] MEDS: LEVOFLOXACIN 750 MG TAB PO SCH (21:55)
[2017-01-07] MEDS: methylPREDNISolone SOD SUCCI 125 MG/2 ML VIAL IV SCH (06:09)
[2017-01-07 07:04] LABS: Basophils % (A) 0 %; CH 30.6; CHCM 32.9; Eosinophils % (A) 0 %; HCT 40.9 % (39.0-53.0); HGB 13.1 gm/dL (13.0-17.5); Luc # (Auto) 0.14; Luc % (Auto) 1; Lymphocytes # (A) 0.8 k/uL (1.0-4.8); Lymphocytes % (A) 6 %; MCV 93.6 fL (80.0-100.0); Mean Platelet Volume 7.7; Monocytes # (A) 0.5 k/uL (0-1.0); Monocytes % (A) 4 %; Neutrophils # (A) 11.5 k/uL (1.3-7.7); Neutrophils % (A) 89 %; RBC 4.37 m/uL (4.30-5.90); RDW 14.6 % (11.5-15.5); WBC (Perox) 14.11
[2017-01-07 07:15] LABS: Glucose,Whole Blood 148 mg/dL (75-99)
[2017-01-07 07:17] LABS: Anion Gap 12 mmol/L; Blood Urea Nitrogen 18 mg/dL (9-20); Calcium 8.6 mg/dL (8.4-10.2); Carbon Dioxide 25 mmol/L (22-30); Chloride 102 mmol/L (98-107); Glucose 143 mg/dL (74-99); Non-African American GFR(MDRD) >60 (>60 ml/min/1.73 sqM); Potassium 3.5 mmol/L (3.5-5.1); Sodium 139 mmol/L (137-145)
[2017-01-07] MEDS: INSULIN LISPRO (humaLOG) 300 UNIT/3 ML VIAL SQ SCH ×4 (08:17→22:08)
[2017-01-07] MEDS: OSELTAMIVIR 75 MG CAP PO SCH ×2 (08:17→22:08)
[2017-01-07] MEDS: FAMOTIDINE 20 MG TAB PO SCH (08:17)
[2017-01-07] MEDS: IPRATROPIUM-ALBUTEROL 3 ML NEB INHALATION SCH ×4 (08:45→20:29)
[2017-01-07] MEDS: PIPERACILLIN-TAZOBACTAM 3.375 GM in DEXTROSE/WATER 1 50ML.BAG IVPB SCH ×2 (10:04→15:47)
--- NOTE | 2017-01-07 10:55 | CONS ---
DATE OF CONSULTATION: Mr. Magana is a 76-year-old gentleman who is seen for cardiac evaluation. This patient gives a history that he has been having a problem of cough and shortness of breath over the last one month with congestion. Patient has been treated for pneumonia as an outpatient for one month with different antibiotics. He continues to have shortness of breath with activities as well as orthopnea and PND. Patient denied any chest pain. He did have some temperature as an outpatient since admission in the hospital. He is afebrile. He nasal swab is positive for influenza. Patient denies any history of diabetes or hypertension. There is no prior history of myocardial infarction. Echocardiogram was done which showed evidence of moderate to severely impaired left ventricular systolic function with evidence of elevated left atrial pressure. Patient's the BNP level was 1820. Patient currently has been getting Tamiflu, Zosyn and Levaquin. Patient has a history of 50 year pack history of smoking. Past medical history includes questionable pneumonia, appendectomy. Patient's home medications included albuterol inhaler p.r.n. Patient was also treated with steroid as an outpatient. Physical examination at present reveals a 76-year-old gentleman who does not appear to be in any acute distress at present. Patient is afebrile. Blood pressure is 118/90 mmHg, heart rate is 106 per minute. Head/ENT examination is negative. Neck is supple. Jugular venous pressure is elevated up to the angle of the jaw. Both the carotid pulses are felt. There is no bruit. Chest is symmetrical. HEART: The PMI is not felt. First and second heart sounds are normal. No significant murmurs are noted. Lung examination reveals a few scattered wheezes and bilateral basal rales. Abdomen is soft. Liver and spleen are not enlarged. There is no evidence of any leg edema. Peripheral pulsations are 1+. EKG shows evidence of sinus tachycardia. Patient's BNP level was 1820. Chest x-ray shows diffuse ( ) pattern. There is no definite active infiltrate to suggest ongoing consolidation; underlying mild heart failure cannot be entirely excluded. FINAL IMPRESSION: This patient has been admitted with cough, congestion and shortness of breath, which appears to be multifactorial. Patient has been treated for pneumonia as well as influenza. Patient possibly has underlying left ventricular failure. Echocardiogram shows evidence of moderate to severely impaired left ventricular systolic function and patient's proBNP level is elevated. RECOMMENDATIONS: I will recommend to treat the patient with Lasix 40 mg q.12 hourly. We will start the patient on Entresto 24-26 mg 1 tablet twice a day and Toprol XL 25 mg daily. If bed is available, we will transfer the patient to selective care unit and we will follow the patient. After patient's condition is stabilized, he will need evaluation with a stress test and possible cardiac catheterization to evaluate the patient's cardiomyopathy.
[2017-01-07] MEDS: SODIUM CHLORIDE 0.9% 1,000 ML IV SCH ×2 (11:22→11:49)
--- NOTE | 2017-01-07 11:27 | P.PN ---
Subjective Principal diagnosis: Pneumonia, heart failure Patient is a 76-year-old patient, patient of Dr. Rai in the outpatient setting, with medical history significant for pneumonia and previous nicotine dependence. Patient presented to the emergency department with complaints of difficulty breathing, cough and congestion. Onset of symptoms started approximately 3 weeks. Apparently patient was treated in the outpatient setting without significant improvement. Patient was found to have evidence of sepsis secondary to community-acquired pneumonia, failed outpatient treatment and acute exacerbation of COPD. In addition patient tested positive for influenza A. Patient also had evidence of acute congestive heart failure with left ventricular systolic function moderate to severely impaired with an EF between 30-35% with no evidence of pulmonary hypertension. Patient was admitted to the medical floor with consult to Dr. Posada for pulmonary service. Consult has been requested for cardiology concerning new onset heart failure. Upon examination, patient reports improvement in breathing. Patient reports a runny nose but states coughing has decreased. Denies nausea, vomiting, chest pain, abdominal pain, numbness or tingling, leg swelling, constipation or diarrhea. Patient reports good appetite. Patient currently oxygenating 95% on room air. Patient has been evaluated by cardiology who started patient on entrust oh, Lasix, and Toprol. Patient is currently awaiting transfer to selective care unit where he'll need evaluation with a stress test and possible cardiac catheterization to evaluate patient's cardiomyopathy per cardiology service. Preliminary blood cultures were no growth after 48 hours. Urine culture negative. Gram stain culture pending. Objective - Vital Signs Vital signs: Vital Signs Temp 98.6 F 01/07/17 07:00 Pulse 89 01/07/17 10:44 Resp 16 01/07/17 08:00 BP 118/90 01/07/17 07:00 Pulse Ox 95 01/07/17 07:00 Intake & Output 01/06/17 01/07/17 01/07/17 18:59 06:59 18:59 Intake Total 2500 1490 480 Balance 2500 1490 480 Intake: IV 600 900 Sodium Chloride 0.9% 1, 600 900 000 ml @ 100 mls/hr IV . Q10H [facility] Rx#:[id number] Oral 1900 590 480 Other: Voiding Method Urinal Urinal Urinal # Voids 3 - Exam GENERAL: Pt awake and alert, well-appearing, well-nourished, and in no acute distress. HEAD: Atraumatic, normocephalic. EYES: Pupils equal and round. Sclera anicteric, conjunctiva are normal. ENT: Moist mucous membranes. NECK:Normal range of motion, supple without lymphadenopathy or JVD. LUNGS: Breath sounds essentially clear to auscultation bilaterally. HEART: Heart S1, S2, no S3 or S4. Regular rate and rhythm. No murmurs, rubs or gallops. ABDOMEN: Soft, nontender, nondistended, normoactive bowel sounds. No guarding, no rebound. No masses or organomegaly appreciated. EXTREMITIES: Palpable peripheral pulses. No edema. No calf tenderness. NEUROLOGICAL: Pt oriented x 3. No focal deficits. Strength and sensation grossly intact. PSYCH: Normal mood, normal affect. SKIN: Warm, dry, intact. Normal turgor. No rashes or lesions. - Labs CBC & Chem 7: 01/07/17 06:45 01/07/17 06:45 Labs: Abnormal Lab Results - Last 24 Hours (Table) 01/06/17 01/06/17 01/06/17 Range/Units 11:33 16:29 20:41 WBC (3.8-10.6) k/uL Neutrophils # (1.3-7.7) k/uL Lymphocytes # (1.0-4.8) k/uL Glucose (74-99) mg/dL POC Glucose (mg/dL) 147 H 127 H 178 H (75-99) mg/dL 01/07/17 01/07/17 01/07/17 Range/Units 06:45 06:45 07:12 WBC 13.0 H (3.8-10.6) k/uL Neutrophils # 11.5 H (1.3-7.7) k/uL Lymphocytes # 0.8 L (1.0-4.8) k/uL Glucose 143 H (74-99) mg/dL POC Glucose (mg/dL) 148 H (75-99) mg/dL Assessment and Plan Plan: Impression and plan: 1. Sepsis suspect secondary to community acquired pneumonia, failed outpatient treatment. Continue IV Levaquin and IV Zosyn for empiric coverage. Sputum culture pending. Preliminary blood culture no growth, urine culture negative. 2. Acute systolic congestive heart failure. Cardiology consult requested, recommendations noted. Patient has been started on Lasix 40 mg IV every 12, metoprolol 25 mg by mouth daily, and Entresto 24mg-[address] chest has been ordered by cardiology, results pending. 3. Influenza A. Continue Tamiflu 75 mg by mouth twice a day. 4. Acute exacerbation of COPD. Continue nebulized updraft treatments, supplemental oxygen, Solu-Medrol 60 mg IV every 6 hours. Pulmonary service is following patient, will look for tapering of steroids when appropriate. 5. Nicotine dependence. Nicotine patch ordered. Smoking cessation encouraged. 6. DVT prophylaxis. Encourage early ambulation. 7. GI prophylaxis. Continue Pepcid 20 mg daily. Continue to monitor patient. Continue supportive treatment and pain management. Continue to follow with pulmonary service. Repeat CBC and BMP in a.m. The above impression and plan have been discussed and directed by Dr. Ty. Shelli CURRIE acting as scribe for Dr. Ty.
[2017-01-07 11:30] LABS: Glucose,Whole Blood 186 mg/dL (75-99)
--- NOTE | 2017-01-07 11:31 | CT ---
EXAMINATION TYPE: CT chest wo con DATE OF EXAM: 01/07/2017 11:09 AM COMPARISON: NONE HISTORY: Patient poor historian. Heart failure. CT DLP: 421.1 mGycm, Automated exposure control for dose reduction was used. CONTRAST: None TECHNIQUE: Axial images were obtained at 5 mm thick sections. Reconstructed images are reviewed on [employer] computer in the coronal plane. FINDINGS: Portion of the thyroid visualized is normal. There is a 0.4 cm nodule within the left mid lung. Series 4 image 27. 0.5 cm nodules in the periphery of the right middle lobe. Series 4 image 29. At the same level a 0.3 cm nodules in the periphery of the lingula. There is a small density measuring 0.3 cm within the periphery of the right middle lobe. Series 4 image 43. Calcification is in the right lower lobe measuring 0.3 cm. Image 39 series 4. Str eak atelectasis in the posterior medial right lung base and at the posterior left base. Some left inf rahilar calcified lymph nodes may be present. No enlarged mediastinal or hilar adenopathy is evident. Couple of small shoddy lymph nodes are pres ent within the pretracheal space. Note is made of coronary artery calcification. The ascending aorta diameter at the level of the main pulmonary artery is 3.6 cm. The main pulmonary artery diameter at the bifurcation is 2.[address] sections are obtained through the upper abdomen. Abdomen is essentially unremarkable. IMPRESSIONS: 1. Scattered small nodules. Follow-up study in 3 months is recommended. This should be confirmed as s table over the course of 2 years.
[2017-01-07] MEDS: FUROSEMIDE 10 MG/ML 4 ML VIAL IV SCH ×2 (11:32→22:37)
[2017-01-07] MEDS: SACUBITRIL/VALSARTAN 24 MG-26 MG TABLET PO SCH ×2 (11:33→23:05)
[2017-01-07] MEDS: METOPROLOL SUCCINATE (ER) 25 MG TAB.ER.24H PO SCH (11:33)
--- NOTE | 2017-01-07 11:54 | P.PN ---
Subjective Principal diagnosis: Acute community acquired pneumonia and acute exacerbation of COPD This is a very pleasant 76-year-old gentleman who follows with Dr. Rai as his primary care physician. He is no significant medical history. He is on no home medications. He does have a 50+ years pack per day smoking history but denies any known COPD. He is not on any inhalers in the past. In November of this year he developed increasing shortness of breath cough and congestion. He was treated twice by his PCP and once in the emergency room without significant improvement. He presented here again yesterday with similar complaints of increasing shortness of breath cough and congestion. He was having worsening dyspnea on minimal activity. He has a loose productive cough of yellow sputum. No hemoptysis. His had a T-max of 102.2. Slightly tachycardic. Maintaining O2 saturations in the mid 90s on room air. White count 11.0. Lactic acid 1.2. He was found to be influenza A positive. ProBNP level 1820. His chest x-ray does show evidence of mild interstitial prominence and small pleural effusions. A recent chest x-ray also showed some patchy right lower lobe atelectasis/ infiltrate. The patient has been initiated on Tamiflu, Zosyn and Levaquin. Presently, he is sitting up in the chair at the bedside. He denies any worsening shortness of breath. He continues with a yellow productive sputum. No chills or night sweats. No diarrhea. Currently afebrile. The patient is seen again today 01/06/2017 in follow-up on the regular medical floor. He is awake and alert in no acute distress. He states he is breathing quite a bit better today as compared to yesterday. Less dyspnea on minimal exertion. Less cough and congestion. He denies any fever, chills or night sweats. No nausea, vomiting or diarrhea. He's been afebrile. Currently maintaining O2 saturations in the mid 90s on room air. No tachycardia, no tachypnea. Blood and sputum cultures are pending. Urine culture reveals no growth. Patient was reevaluated today on 01/07/2017, he is doing quite well from the pulmonary perspective, less cough and less wheezing less shortness of breath, but his echocardiogram came back quite abnormal, it is showing a significant LV dysfunction. And he is being followed by cardiology for his LV dysfunction. Patient is also on Tamiflu for his influenza infection, and he remains on antibiotics and bronchodilators for his pneumonia and COPD. Significant clinical improvement noted over the last couple of days. Objective - Vital Signs Vital signs: Vital Signs Temp 98.6 F 01/07/17 07:00 Pulse 89 01/07/17 10:44 Resp 16 01/07/17 08:00 BP 118/90 01/07/17 07:00 Pulse Ox 95 01/07/17 07:00 Intake & Output 01/06/17 01/07/17 01/07/17 18:59 06:59 18:59 Intake Total 2500 1490 480 Balance 2500 1490 480 Intake: IV 600 900 Sodium Chloride 0.9% 1, 600 900 000 ml @ 100 mls/hr IV . Q10H [facility] Rx#:[id number] Oral 1900 590 480 Other: Voiding Method Urinal Urinal Urinal # Voids 3 - Exam GENERAL EXAM: Alert, comfortable in no apparent distress. HEAD: Normocephalic. EYES: Normal reaction of pupils, equal size. NOSE: Clear with pink turbinates. THROAT: No erythema or exudates. NECK: No masses, no JVD. CHEST: No chest wall deformity. LUNGS: Equal air entry with crackles in the left lung base. Diminished. CVS: S1 and S2 normal with no audible murmurs, regular rhythm. ABDOMEN: No hepatosplenomegaly, normal bowel sounds, no guarding or rigidity. SPINE: No scoliosis or deformity SKIN: No rashes CENTRAL NERVOUS SYSTEM: No focal deficits, tone is normal in all 4 extremities. Extremities: There is no significant peripheral edema. No clubbing, no cyanosis. Peripheral pulses are intact. - Labs CBC & Chem 7: 01/07/17 06:45 01/07/17 06:45 Labs: Abnormal Lab Results - Last 24 Hours (Table) 01/06/17 01/06/17 01/07/17 Range/Units 16:29 20:41 06:45 WBC 13.0 H (3.8-10.6) k/uL Neutrophils # 11.5 H (1.3-7.7) k/uL Lymphocytes # 0.8 L (1.0-4.8) k/uL Glucose (74-99) mg/dL POC Glucose (mg/dL) 127 H 178 H (75-99) mg/dL 01/07/17 01/07/17 01/07/17 Range/Units 06:45 07:12 11:29 WBC (3.8-10.6) k/uL Neutrophils # (1.3-7.7) k/uL Lymphocytes # (1.0-4.8) k/uL Glucose 143 H (74-99) mg/dL POC Glucose (mg/dL) 148 H 186 H (75-99) mg/dL Assessment and Plan Plan: #1 Dyspnea, multifactorial in a patient with suspected community-acquired pneumonia failed outpatient therapy, mild congestive heart failure, acute exacerbation of suspected chronic obstructive pulmonary disease, influenza A positivity. And severe cardiomyopathy and LV dysfunction as noted on his most recent echo. #2 Acute exacerbation of systolic congestive heart failure. Echocardiogram revealed severe global hypokinesia with moderate to severe. Left ventricular systolic function with estimated ejection fraction 30-35%. #3 Acute exacerbation of suspected chronic obstructive pulmonary disease. #4 Chronic 50+ year pack per day smoking history. #5 Influenza A. Recommendation: Continue present treatment plan, patient was seen by cardiology , from the pulmonary perspective, patient could be treated with oral antibiotics , prednisone burst and taper, and a full 5 day course of Tamiflu. However the patient will definitely need further cardiac workup to address possible ischemic cardiomyopathy. Cardiology on the case we'll address that issue. Time with Patient: Less than 30
[2017-01-07] MEDS: methylPREDNISolone SOD SUCCI 40 MG/ML 1 ML VIAL IV SCH ×2 (15:41→22:09)
[2017-01-07 16:56] LABS: Glucose,Whole Blood 214 mg/dL (75-99)
[2017-01-07] MEDS ORDERED: DEXTROSE 5% IN WATER 100 ML with AMIODARONE 150 MG IV ONE (17:31)
[2017-01-07] MEDS ORDERED: Potassium Replacement Protocol 1 EACH MISC MISCELLANE PRN (17:33)
[2017-01-07] MEDS: POTASSIUM CHLORIDE ER 20 MEQ TAB.ER PO SCH ×2 (18:31→22:11)
[2017-01-07] MEDS: AMIODARONE 450 MG in DEXTROSE 5% IN WATER 250 ML IV SCH ×2 (19:40)
[2017-01-07 20:35] LABS: Glucose,Whole Blood 142 mg/dL (75-99)
[2017-01-07] MEDS: LEVOFLOXACIN 750 MG TAB PO SCH (22:08)
[2017-01-07] MEDS: APIXABAN 5 MG TAB PO SCH (22:08)
[2017-01-08] MEDS: PIPERACILLIN-TAZOBACTAM 3.375 GM in DEXTROSE/WATER 1 50ML.BAG IVPB SCH ×2 (00:59→08:24)
[2017-01-08] MEDS: AMIODARONE 450 MG in DEXTROSE 5% IN WATER 250 ML IV SCH ×6 (03:15→16:47)
[2017-01-08 06:05] LABS: Glucose,Whole Blood 174 mg/dL (75-99)
[2017-01-08 06:28] LABS: Basophils # (A) 0.1 k/uL (0-0.2); Basophils % (A) 1 %; CH 30.7; CHCM 33.1; Eosinophils % (A) 0 %; HCT 41.9 % (39.0-53.0); HDW 2.59; HGB 13.8 gm/dL (13.0-17.5); Luc # (Auto) 0.14; Luc % (Auto) 1; Lymphocytes # (A) 0.6 k/uL (1.0-4.8); Lymphocytes % (A) 4 %; MCH 30.7 pg (25.0-35.0); MCHC 32.9 g/dL (31.0-37.0); MCV 93.2 fL (80.0-100.0); Mean Platelet Volume 8.3; Monocytes # (A) 0.5 k/uL (0-1.0); Monocytes % (A) 4 %; Neutrophils # (A) 13.2 k/uL (1.3-7.7); Neutrophils % (A) 91 %; RDW 14.5 % (11.5-15.5); WBC 14.5 k/uL (3.8-10.6); WBC (Perox) 15.21
[2017-01-08 06:38] LABS: Anion Gap 10 mmol/L; Blood Urea Nitrogen 24 mg/dL (9-20); Calcium 8.2 mg/dL (8.4-10.2); Carbon Dioxide 32 mmol/L (22-30); Chloride 98 mmol/L (98-107); Glucose 191 mg/dL (74-99); Non-African American GFR(MDRD) >60 (>60 ml/min/1.73 sqM); Potassium 3.6 mmol/L (3.5-5.1); Sodium 140 mmol/L (137-145)
[2017-01-08] MEDS: SODIUM CHLORIDE 0.9% 1,000 ML IV SCH (06:45)
[2017-01-08] MEDS: INSULIN LISPRO (humaLOG) 300 UNIT/3 ML VIAL SQ SCH ×4 (06:46→21:00)
[2017-01-08] MEDS: IPRATROPIUM-ALBUTEROL 3 ML NEB INHALATION SCH ×4 (07:52→19:45)
[2017-01-08] MEDS: methylPREDNISolone SOD SUCCI 40 MG/ML 1 ML VIAL IV SCH (08:23)
[2017-01-08] MEDS: METOPROLOL SUCCINATE (ER) 25 MG TAB.ER.24H PO SCH (08:24)
[2017-01-08] MEDS: FUROSEMIDE 10 MG/ML 4 ML VIAL IV SCH ×2 (08:24→21:00)
[2017-01-08] MEDS: APIXABAN 5 MG TAB PO SCH (08:24)
[2017-01-08] MEDS: OSELTAMIVIR 75 MG CAP PO SCH ×2 (08:24→21:00)
[2017-01-08] MEDS: FAMOTIDINE 20 MG TAB PO SCH (08:24)
--- NOTE | 2017-01-08 10:59 | P.PN ---
Subjective Principal diagnosis: Acute community acquired pneumonia and acute exacerbation of COPD This is a very pleasant 76-year-old gentleman who follows with Dr. Rai as his primary care physician. He is no significant medical history. He is on no home medications. He does have a 50+ years pack per day smoking history but denies any known COPD. He is not on any inhalers in the past. In November of this year he developed increasing shortness of breath cough and congestion. He was treated twice by his PCP and once in the emergency room without significant improvement. He presented here again yesterday with similar complaints of increasing shortness of breath cough and congestion. He was having worsening dyspnea on minimal activity. He has a loose productive cough of yellow sputum. No hemoptysis. His had a T-max of 102.2. Slightly tachycardic. Maintaining O2 saturations in the mid 90s on room air. White count 11.0. Lactic acid 1.2. He was found to be influenza A positive. ProBNP level 1820. His chest x-ray does show evidence of mild interstitial prominence and small pleural effusions. A recent chest x-ray also showed some patchy right lower lobe atelectasis/ infiltrate. The patient has been initiated on Tamiflu, Zosyn and Levaquin. Presently, he is sitting up in the chair at the bedside. He denies any worsening shortness of breath. He continues with a yellow productive sputum. No chills or night sweats. No diarrhea. Currently afebrile. The patient is seen again today 01/06/2017 in follow-up on the regular medical floor. He is awake and alert in no acute distress. He states he is breathing quite a bit better today as compared to yesterday. Less dyspnea on minimal exertion. Less cough and congestion. He denies any fever, chills or night sweats. No nausea, vomiting or diarrhea. He's been afebrile. Currently maintaining O2 saturations in the mid 90s on room air. No tachycardia, no tachypnea. Blood and sputum cultures are pending. Urine culture reveals no growth. Patient was reevaluated today on 01/07/2017, he is doing quite well from the pulmonary perspective, less cough and less wheezing less shortness of breath, but his echocardiogram came back quite abnormal, it is showing a significant LV dysfunction. And he is being followed by cardiology for his LV dysfunction. Patient is also on Tamiflu for his influenza infection, and he remains on antibiotics and bronchodilators for his pneumonia and COPD. Significant clinical improvement noted over the last couple of days. Patient was seen today on 01/08/2017, doing much better from the pulmonary perspective. Minimal cough minimal wheezing, no shortness of breath, patient is now on amiodarone for A. fib with RVR. Cardiology is following the patient for his cardiomyopathy and LV dysfunction. CT of the chest done on 01/07/2017, showed no evidence of enlarged lymph nodes, there was evidence of multiple small pulmonary nodules, nonspecific, however these will have to be reevaluated on outpatient basis. Streak atelectasis was noted at the right base and the lung base, and left infrahilar calcified nodes were noted. Apparently the pneumonia that he had on presentation seems to have cleared significantly. Clinically the patient is feeling better hence from the pulmonary perspective I will go ahead and switch him to oral Augmentin, discontinue Levaquin and Zosyn, and I will switch him to oral prednisone for his COPD burst and taper. Patient may have more cardiac workup next Tuesday, and whenever the patient is cleared by cardiology for discharge, he'll be cleared by us. Objective - Vital Signs Vital signs: Vital Signs Temp 97.8 F 01/08/17 08:00 Pulse 62 01/08/17 08:00 Resp 18 01/08/17 08:00 BP 95/52 01/08/17 08:00 Pulse Ox 95 01/08/17 08:00 Intake & Output 01/07/17 01/08/17 01/08/17 18:59 06:59 18:59 Intake Total 890 459 88.601 Output Total 800 Balance 890 -341 88.601 Weight 86.7 kg Intake: IV 120 Sodium Chloride 0.9% 1, 120 000 ml @ 20 mls/hr IV . Q24H [facility] Rx#:[id number] Intake, IV Titration 50 259 88.601 Amount Amiodarone 450 mg In 259 88.601 Dextrose 5% in Water 250 ml @ 1 MG/MIN 34.53 mls/ hr IV .[id number] [facility] Rx#: [id number] Piperacillin-Tazobactam 3 50 .375 gm In Dextrose/Water 1 50ml.bag @ 12.5 mls/hr IVPB Q8HR [facility] Rx#: [id number] Oral 720 200 Output: Urine 800 Other: Voiding Method Urinal Urinal # Voids 1 - Exam GENERAL EXAM: Alert, comfortable in no apparent distress. HEAD: Normocephalic. EYES: Normal reaction of pupils, equal size. NOSE: Clear with pink turbinates. THROAT: No erythema or exudates. NECK: No masses, no JVD. CHEST: No chest wall deformity. LUNGS: Equal air entry with crackles in the left lung base. Diminished. CVS: S1 and S2 normal with no audible murmurs, regular rhythm. ABDOMEN: No hepatosplenomegaly, normal bowel sounds, no guarding or rigidity. SPINE: No scoliosis or deformity SKIN: No rashes CENTRAL NERVOUS SYSTEM: No focal deficits, tone is normal in all 4 extremities. Extremities: There is no significant peripheral edema. No clubbing, no cyanosis. Peripheral pulses are intact. - Labs CBC & Chem 7: 01/08/17 05:24 01/08/17 05:24 Labs: Abnormal Lab Results - Last 24 Hours (Table) 01/07/17 01/07/17 01/07/17 Range/Units 11:29 16:53 20:34 WBC (3.8-10.6) k/uL Neutrophils # (1.3-7.7) k/uL Lymphocytes # (1.0-4.8) k/uL Carbon Dioxide (22-30) mmol/L BUN (9-20) mg/dL Glucose (74-99) mg/dL POC Glucose (mg/dL) 186 H 214 H 142 H (75-99) mg/dL Calcium (8.4-10.2) mg/dL 01/08/17 01/08/17 01/08/17 Range/Units 05:24 05:24 06:02 WBC 14.5 H (3.8-10.6) k/uL Neutrophils # 13.2 H (1.3-7.7) k/uL Lymphocytes # 0.6 L (1.0-4.8) k/uL Carbon Dioxide 32 H (22-30) mmol/L BUN 24 H (9-20) mg/dL Glucose 191 H (74-99) mg/dL POC Glucose (mg/dL) 174 H (75-99) mg/dL Calcium 8.2 L (8.4-10.2) mg/dL Assessment and Plan Plan: #1 Dyspnea, multifactorial in a patient with suspected community-acquired pneumonia failed outpatient therapy, mild congestive heart failure, acute exacerbation of suspected chronic obstructive pulmonary disease, influenza A positivity. And severe cardiomyopathy and LV dysfunction as noted on his most recent echo. #2 Acute exacerbation of systolic congestive heart failure. Echocardiogram revealed severe global hypokinesia with moderate to severe. Left ventricular systolic function with estimated ejection fraction 30-35%. #3 Acute exacerbation of suspected chronic obstructive pulmonary disease. #4 Chronic 50+ year pack per day smoking history. #5 Influenza A. #6 nonspecific pulmonary nodules may need to have outpatient follow-up, repeat CT of the chest in about 6 months. #7 acute atrial fibrillation with RVR, presently on amiodarone drip. Recommendation: Continue present treatment plan, patient was switched to oral Augmentin, switch to oral prednisone, and possible discharge planning early next week however the patient will need to be cleared by cardiology for any discharge planning. Time with Patient: Less than 30
--- NOTE | 2017-01-08 11:07 | P.PN ---
Subjective Patient is a 76-year-old patient, patient of Dr. Rai in the outpatient setting, with medical history significant for community-acquired pneumonia with failed outpatient treatment and previous nicotine dependence. Patient presented to the emergency department with complaints of difficulty breathing, cough and congestion. Onset of symptoms started approximately 3 weeks. Apparently patient was treated in the outpatient setting without significant improvement. Patient was found to have evidence of sepsis secondary to community-acquired pneumonia, failed outpatient treatment and acute exacerbation of COPD. In addition patient tested positive for influenza A. Patient also had evidence of acute congestive heart failure with left ventricular systolic function moderate to severely impaired with an EF between 30-35% with no evidence of pulmonary hypertension. Patient was admitted to the medical floor with consult to Dr. Posada for pulmonary service. Cardiology has seen him as well. Yesterday afternoon, patient was given Jorge and he had a reaction. He reports feeling energized and speeding up, then very fatigue and tingling in his throat. He then developed intermittent atrial fibrillation. He was placed on amiodarone drip and Elequis. He is resting comfortably this morning. He denies any chest pains, pressures, shortness of breath, nausea, vomiting, or constipation. Objective - Vital Signs Vital signs: Vital Signs Temp 97.8 F 01/08/17 08:00 Pulse 62 01/08/17 08:00 Resp 18 01/08/17 08:00 BP 95/52 01/08/17 08:00 Pulse Ox 95 01/08/17 08:00 Intake & Output 01/07/17 01/08/17 01/08/17 18:59 06:59 18:59 Intake Total 890 459 88.601 Output Total 800 Balance 890 -341 88.601 Weight 86.7 kg Intake: IV 120 Sodium Chloride 0.9% 1, 120 000 ml @ 20 mls/hr IV . Q24H [facility] Rx#:[id number] Intake, IV Titration 50 259 88.601 Amount Amiodarone 450 mg In 259 88.601 Dextrose 5% in Water 250 ml @ 1 MG/MIN 34.53 mls/ hr IV .Q7H31M [facility] Rx#: [id number] Piperacillin-Tazobactam 3 50 .375 gm In Dextrose/Water 1 50ml.bag @ 12.5 mls/hr IVPB Q8HR [facility] Rx#: [id number] Oral 720 200 Output: Urine 800 Other: Voiding Method Urinal Urinal # Voids 1 - Exam GENERAL: Pt awake and alert, well-appearing, well-nourished, and in no acute distress. NECK:Normal range of motion, supple without lymphadenopathy or JVD. LUNGS: Breath sounds coarse with mild rhonchi HEART: Heart S1, S2, no S3 or S4. Regular rate and rhythm. No murmurs, rubs or gallops. ABDOMEN: Soft, nontender, nondistended, normoactive bowel sounds. No guarding, no rebound. No masses or organomegaly appreciated. EXTREMITIES: Palpable peripheral pulses. No edema. No calf tenderness. NEUROLOGICAL: Pt oriented x 3. No focal deficits. Strength and sensation grossly intact. PSYCH: Normal mood, normal affect. SKIN: Warm, dry, intact. Normal turgor. No rashes or lesions. - Labs CBC & Chem 7: 01/08/17 05:24 01/08/17 05:24 Labs: Abnormal Lab Results - Last 24 Hours (Table) 01/07/17 01/07/17 01/07/17 Range/Units 11:29 16:53 20:34 WBC (3.8-10.6) k/uL Neutrophils # (1.3-7.7) k/uL Lymphocytes # (1.0-4.8) k/uL Carbon Dioxide (22-30) mmol/L BUN (9-20) mg/dL Glucose (74-99) mg/dL POC Glucose (mg/dL) 186 H 214 H 142 H (75-99) mg/dL Calcium (8.4-10.2) mg/dL 01/08/17 01/08/17 01/08/17 Range/Units 05:24 05:24 06:02 WBC 14.5 H (3.8-10.6) k/uL Neutrophils # 13.2 H (1.3-7.7) k/uL Lymphocytes # 0.6 L (1.0-4.8) k/uL Carbon Dioxide 32 H (22-30) mmol/L BUN 24 H (9-20) mg/dL Glucose 191 H (74-99) mg/dL POC Glucose (mg/dL) 174 H (75-99) mg/dL Calcium 8.2 L (8.4-10.2) mg/dL Assessment and Plan Plan: Impression and plan: 1. Sepsis suspect secondary to community acquired pneumonia, failed outpatient treatment and influenza A. Sputum culture shows normal marleni. blood culture no growth, urine culture negative. Patient now on Augmentin, DuoNeb, and Tamiflu. 2. Acute systolic congestive heart failure. Cardiology following, recommendations noted. Patient continuing on Elequis, metoprolol, amiodarone drip, and Lasix 3. Proximal atrial fibrillation: As above 4. Acute exacerbation of COPD. Continue nebulized updraft treatments, supplemental oxygen, and oral prednisone. Pulmonology is following 5. Nicotine dependence. Nicotine patch ordered. Smoking cessation encouraged. 6. DVT prophylaxis. Continue Elequis 7. GI prophylaxis. Continue Pepcid 20 mg daily. 8. Leukocytosis: Most likely reactive, we'll monitor Continue supportive treatment and pain management. He'll be reevaluated in the next 24 hours,
[2017-01-08 11:46] LABS: Glucose,Whole Blood 156 mg/dL (75-99)
[2017-01-08] MEDS: guaiFENesin 600 MG TABLET.ER PO SCH ×2 (11:47→21:00)
[2017-01-08] MEDS: predniSONE 10 MG TAB PO SCH (11:47)
[2017-01-08] MEDS: AMOXIC-POT CLAV 875-125MG 1 EACH TAB PO SCH ×2 (11:48→21:00)
--- NOTE | 2017-01-08 13:03 | PN ---
This patient is admitted with symptoms of respiratory distress. Patient's echocardiogram showed evidence of cardiomyopathy with an ejection fraction of 30% to 35%. This patient had kind of funny symptoms after taking Entresto. He felt flushed and his tongue felt funny. In view of that, we will discontinue the Entresto and try the patient on lisinopril 5 mg daily. Patient had a few episodes of tachycardia. The rhythm strips are reviewed, which is more suggestive atrial tachycardia or supraventricular tachycardia. There is no definite evidence of atrial fibrillation. In view of that, I will discontinue the Eliquis, put him on baby aspirin once a day and we will keep the patient on amiodarone 200 mg 3 times a day. I will increase the dose of metoprolol to 50 mg b.i.d.
[2017-01-08 16:29] LABS: Glucose,Whole Blood 205 mg/dL (75-99)
[2017-01-08] MEDS: AMIODARONE 200 MG TAB PO SCH (21:05)
[2017-01-08 21:07] LABS: Glucose,Whole Blood 179 mg/dL (75-99)
[2017-01-09 06:28] LABS: Basophils % (A) 0 %; CH 30.8; CHCM 33.1; Eosinophils % (A) 0 %; HCT 40.9 % (39.0-53.0); HDW 2.47; HGB 12.9 gm/dL (13.0-17.5); Luc # (Auto) 0.19; Luc % (Auto) 2; Lymphocytes # (A) 1.2 k/uL (1.0-4.8); Lymphocytes % (A) 10 %; MCH 29.4 pg (25.0-35.0); MCHC 31.5 g/dL (31.0-37.0); MCV 93.5 fL (80.0-100.0); Mean Platelet Volume 7.6; Monocytes # (A) 0.8 k/uL (0-1.0); Monocytes % (A) 7 %; Neutrophils # (A) 9.5 k/uL (1.3-7.7); Neutrophils % (A) 81 %; RBC 4.38 m/uL (4.30-5.90); RDW 14.5 % (11.5-15.5); WBC 11.7 k/uL (3.8-10.6); WBC (Perox) 12.86
[2017-01-09 06:34] LABS: Anion Gap 8 mmol/L; Blood Urea Nitrogen 27 mg/dL (9-20); Carbon Dioxide 33 mmol/L (22-30); Chloride 98 mmol/L (98-107); Glucose 136 mg/dL (74-99); Magnesium 2.1 mg/dL (1.6-2.3); Non-African American GFR(MDRD) >60 (>60 ml/min/1.73 sqM); Potassium 3.6 mmol/L (3.5-5.1); Sodium 139 mmol/L (137-145)
[2017-01-09 06:39] LABS: Glucose,Whole Blood 135 mg/dL (75-99)
[2017-01-09] MEDS: SODIUM CHLORIDE 0.9% 1,000 ML IV SCH (06:41)
[2017-01-09 06:42] VITALS: RESP 18
[2017-01-09] MEDS: INSULIN LISPRO (humaLOG) 300 UNIT/3 ML VIAL SQ SCH ×2 (06:43→12:04)
[2017-01-09] MEDS ORDERED: LISINOPRIL 5 MG TAB PO SCH (09:00)
[2017-01-09] MEDS ORDERED: ASPIRIN 81 MG CHEW PO SCH (09:00)
[2017-01-09] MEDS ORDERED: METOPROLOL SUCCINATE (ER) 50 MG TAB.ER.24H PO SCH (09:00)
[2017-01-09] MEDS: AMIODARONE 200 MG TAB PO SCH (09:29)
[2017-01-09] MEDS: AMOXIC-POT CLAV 875-125MG 1 EACH TAB PO SCH (09:29)
[2017-01-09] MEDS: FUROSEMIDE 10 MG/ML 4 ML VIAL IV SCH (09:29)
[2017-01-09] MEDS: OSELTAMIVIR 75 MG CAP PO SCH (09:29)
[2017-01-09] MEDS: predniSONE 10 MG TAB PO SCH (09:30)
[2017-01-09] MEDS: guaiFENesin 600 MG TABLET.ER PO SCH (09:30)
[2017-01-09] MEDS: FAMOTIDINE 20 MG TAB PO SCH (09:30)
[2017-01-09] MEDS: IPRATROPIUM-ALBUTEROL 3 ML NEB INHALATION SCH ×3 (10:04→16:16)
--- NOTE | 2017-01-09 10:04 | P.PN ---
Subjective Patient is a 76-year-old patient, patient of Dr. Rai in the outpatient setting, with medical history significant for community-acquired pneumonia with failed outpatient treatment and previous nicotine dependence. Patient presented to the emergency department with complaints of difficulty breathing, cough and congestion. Onset of symptoms started approximately 3 weeks. Apparently patient was treated in the outpatient setting without significant improvement. Patient was found to have evidence of sepsis secondary to community-acquired pneumonia, failed outpatient treatment and acute exacerbation of COPD. In addition patient tested positive for influenza A. Patient also had evidence of acute congestive heart failure with left ventricular systolic function moderate to severely impaired with an EF between 30-35% with no evidence of pulmonary hypertension. Patient was admitted to the medical floor with consult to Dr. Posada for pulmonary service. Cardiology has seen him as well. 01/07/2017, patient was given Jorge and he had a reaction. He reports feeling energized and speeding up, then very fatigue and tingling in his throat. He then developed intermittent atrial fibrillation. He was placed on amiodarone drip and Elequis. He is resting comfortably this morning. He denies any chest pains, pressures, shortness of breath, nausea, vomiting, or constipation. Cardiology changes at the lisinopril. 01/08/2017, after cardiology review the telemetry, they felt this is more SVT or atrial tachycardia on telemetry. They discontinued the Elequis. They switched his amiodarone oral. He is resting comfortably. Without complaint. Objective - Vital Signs Vital signs: Vital Signs Temp 98.4 F 01/09/17 08:00 Pulse 64 01/09/17 08:00 Resp 18 01/09/17 08:00 BP 110/63 01/09/17 08:00 Pulse Ox 95 01/09/17 08:00 Intake & Output 01/08/17 01/09/17 01/09/17 18:59 06:59 18:59 Intake Total 683.585 380 240 Output Total 800 Balance -116.415 380 240 Weight 86.7 kg 86.8 kg Intake: IV 80 Sodium Chloride 0.9% 1, 80 000 ml @ 20 mls/hr IV . Q24H [facility] Rx#:[id number] Intake, IV Titration 283.585 Amount Amiodarone 450 mg In 233.585 Dextrose 5% in Water 250 ml @ 1 MG/MIN 34.53 mls/ hr IV .Q7H31M [facility] Rx#: [id number] Piperacillin-Tazobactam 3 50 .375 gm In Dextrose/Water 1 50ml.bag @ 12.5 mls/hr IVPB Q8HR [facility] Rx#: [id number] Oral 400 300 240 Output: Urine 800 Other: Voiding Method Urinal Urinal # Voids 1 1 - Exam GENERAL: Pt awake and alert, well-appearing, well-nourished, and in no acute distress. NECK:Normal range of motion, supple without lymphadenopathy or JVD. LUNGS: Breath sounds coarse with mild rhonchi HEART: Heart S1, S2, no S3 or S4. Regular rate and rhythm. No murmurs, rubs or gallops. ABDOMEN: Soft, nontender, nondistended, normoactive bowel sounds. No guarding, no rebound. No masses or organomegaly appreciated. EXTREMITIES: Palpable peripheral pulses. No edema. No calf tenderness. NEUROLOGICAL: Pt oriented x 3. No focal deficits. Strength and sensation grossly intact. PSYCH: Normal mood, normal affect. SKIN: Warm, dry, intact. Normal turgor. No rashes or lesions. - Labs CBC & Chem 7: 01/09/17 05:23 01/09/17 05:23 Labs: Abnormal Lab Results - Last 24 Hours (Table) 01/08/17 01/08/17 01/08/17 Range/Units 11:44 16:27 20:57 WBC (3.8-10.6) k/uL Hgb (13.0-17.5) gm/dL Neutrophils # (1.3-7.7) k/uL Carbon Dioxide (22-30) mmol/L BUN (9-20) mg/dL Glucose (74-99) mg/dL POC Glucose (mg/dL) 156 H 205 H 179 H (75-99) mg/dL Calcium (8.4-10.2) mg/dL 01/09/17 01/09/17 01/09/17 Range/Units 05:23 05:23 06:37 WBC 11.7 H (3.8-10.6) k/uL Hgb 12.9 L (13.0-17.5) gm/dL Neutrophils # 9.5 H (1.3-7.7) k/uL Carbon Dioxide 33 H (22-30) mmol/L BUN 27 H (9-20) mg/dL Glucose 136 H (74-99) mg/dL POC Glucose (mg/dL) 135 H (75-99) mg/dL Calcium 8.0 L (8.4-10.2) mg/dL Assessment and Plan Plan: Impression and plan: 1. Sepsis suspect secondary to community acquired pneumonia, failed outpatient treatment and influenza A. Sputum culture shows normal marleni. blood culture no growth, urine culture negative. Patient now on Augmentin, DuoNeb, and Tamiflu. 2. Acute systolic congestive heart failure. Cardiology following, recommendations noted. Amiodarone changed to oral. Metoprolol increased. Elequis discontinued. 3. SVT versus atrial tachycardia: As above 4. Acute exacerbation of COPD. Continue nebulized updraft treatments, supplemental oxygen, and oral prednisone. Pulmonology is following 5. Nicotine dependence. Nicotine patch ordered. Smoking cessation encouraged. 6. DVT prophylaxis. Ambulation encouraged. 7. GI prophylaxis. Continue Pepcid 20 mg daily. 8. Leukocytosis: Most likely reactive,, improved Continue supportive treatment and pain management. He'll be reevaluated in the next 24 hours, if okay with cardiology, he may be discharged home later today
[2017-01-09 11:50] LABS: Glucose,Whole Blood 127 mg/dL (75-99)
--- NOTE | 2017-01-09 14:18 | P.PN ---
Subjective Principal diagnosis: Acute community acquired pneumonia and acute exacerbation of COPD This is a very pleasant 76-year-old gentleman who follows with Dr. Rai as his primary care physician. He is no significant medical history. He is on no home medications. He does have a 50+ years pack per day smoking history but denies any known COPD. He is not on any inhalers in the past. In November of this year he developed increasing shortness of breath cough and congestion. He was treated twice by his PCP and once in the emergency room without significant improvement. He presented here again yesterday with similar complaints of increasing shortness of breath cough and congestion. He was having worsening dyspnea on minimal activity. He has a loose productive cough of yellow sputum. No hemoptysis. His had a T-max of 102.2. Slightly tachycardic. Maintaining O2 saturations in the mid 90s on room air. White count 11.0. Lactic acid 1.2. He was found to be influenza A positive. ProBNP level 1820. His chest x-ray does show evidence of mild interstitial prominence and small pleural effusions. A recent chest x-ray also showed some patchy right lower lobe atelectasis/ infiltrate. The patient has been initiated on Tamiflu, Zosyn and Levaquin. Presently, he is sitting up in the chair at the bedside. He denies any worsening shortness of breath. He continues with a yellow productive sputum. No chills or night sweats. No diarrhea. Currently afebrile. The patient is seen again today 01/06/2017 in follow-up on the regular medical floor. He is awake and alert in no acute distress. He states he is breathing quite a bit better today as compared to yesterday. Less dyspnea on minimal exertion. Less cough and congestion. He denies any fever, chills or night sweats. No nausea, vomiting or diarrhea. He's been afebrile. Currently maintaining O2 saturations in the mid 90s on room air. No tachycardia, no tachypnea. Blood and sputum cultures are pending. Urine culture reveals no growth. Patient was reevaluated today on 01/07/2017, he is doing quite well from the pulmonary perspective, less cough and less wheezing less shortness of breath, but his echocardiogram came back quite abnormal, it is showing a significant LV dysfunction. And he is being followed by cardiology for his LV dysfunction. Patient is also on Tamiflu for his influenza infection, and he remains on antibiotics and bronchodilators for his pneumonia and COPD. Significant clinical improvement noted over the last couple of days. Patient was seen today on 01/08/2017, doing much better from the pulmonary perspective. Minimal cough minimal wheezing, no shortness of breath, patient is now on amiodarone for A. fib with RVR. Cardiology is following the patient for his cardiomyopathy and LV dysfunction. CT of the chest done on 01/07/2017, showed no evidence of enlarged lymph nodes, there was evidence of multiple small pulmonary nodules, nonspecific, however these will have to be reevaluated on outpatient basis. Streak atelectasis was noted at the right base and the lung base, and left infrahilar calcified nodes were noted. Apparently the pneumonia that he had on presentation seems to have cleared significantly. Clinically the patient is feeling better hence from the pulmonary perspective I will go ahead and switch him to oral Augmentin, discontinue Levaquin and Zosyn, and I will switch him to oral prednisone for his COPD burst and taper. Patient may have more cardiac workup next Tuesday, and whenever the patient is cleared by cardiology for discharge, he'll be cleared by us. Reevaluated today on 01/09/2017, patient is doing relatively well, he is now on oral amiodarone. Pulmonary-[facility] is doing quite well no cough no wheezing no shortness of breath, and his physical examination is quite improved less wheezing noted bilaterally. And the patient is asymptomatic. Labs were all reviewed including normal CBC and normal basic metabolic profile. Objective - Vital Signs Vital signs: Vital Signs Temp 98.4 F 01/09/17 08:00 Pulse 88 01/09/17 11:17 Resp 18 01/09/17 08:00 BP 110/63 01/09/17 08:00 Pulse Ox 95 01/09/17 08:00 Intake & Output 01/08/17 01/09/17 01/09/17 18:59 06:59 18:59 Intake Total 683.585 380 460 Output Total 800 Balance -116.415 380 460 Weight 86.7 kg 86.8 kg Intake: IV 80 Sodium Chloride 0.9% 1, 80 000 ml @ 20 mls/hr IV . Q24H [facility] Rx#:[id number] Intake, IV Titration 283.585 Amount Amiodarone 450 mg In 233.585 Dextrose 5% in Water 250 ml @ 1 MG/MIN 34.53 mls/ hr IV .Q7H31M [facility] Rx#: [id number] Piperacillin-Tazobactam 3 50 .375 gm In Dextrose/Water 1 50ml.bag @ 12.5 mls/hr IVPB Q8HR [facility] Rx#: [id number] Oral 400 300 460 Output: Urine 800 Other: Voiding Method Urinal Urinal # Voids 1 1 1 - Exam GENERAL EXAM: Alert, comfortable in no apparent distress. HEAD: Normocephalic. EYES: Normal reaction of pupils, equal size. NOSE: Clear with pink turbinates. THROAT: No erythema or exudates. NECK: No masses, no JVD. CHEST: No chest wall deformity. LUNGS: Equal air entry with crackles in the left lung base. Diminished. CVS: S1 and S2 normal with no audible murmurs, regular rhythm. ABDOMEN: No hepatosplenomegaly, normal bowel sounds, no guarding or rigidity. SPINE: No scoliosis or deformity SKIN: No rashes CENTRAL NERVOUS SYSTEM: No focal deficits, tone is normal in all 4 extremities. Extremities: There is no significant peripheral edema. No clubbing, no cyanosis. Peripheral pulses are intact. - Labs CBC & Chem 7: 01/09/17 05:23 01/09/17 05:23 Labs: Abnormal Lab Results - Last 24 Hours (Table) 01/08/17 01/08/17 01/09/17 Range/Units 16:27 20:57 05:23 WBC 11.7 H (3.8-10.6) k/uL Hgb 12.9 L (13.0-17.5) gm/dL Neutrophils # 9.5 H (1.3-7.7) k/uL Carbon Dioxide (22-30) mmol/L BUN (9-20) mg/dL Glucose (74-99) mg/dL POC Glucose (mg/dL) 205 H 179 H (75-99) mg/dL Calcium (8.4-10.2) mg/dL 01/09/17 01/09/17 01/09/17 Range/Units 05:23 06:37 11:48 WBC (3.8-10.6) k/uL Hgb (13.0-17.5) gm/dL Neutrophils # (1.3-7.7) k/uL Carbon Dioxide 33 H (22-30) mmol/L BUN 27 H (9-20) mg/dL Glucose 136 H (74-99) mg/dL POC Glucose (mg/dL) 135 H 127 H (75-99) mg/dL Calcium 8.0 L (8.4-10.2) mg/dL Assessment and Plan Plan: #1 Dyspnea, multifactorial in a patient with suspected community-acquired pneumonia failed outpatient therapy, mild congestive heart failure, acute exacerbation of suspected chronic obstructive pulmonary disease, influenza A positivity. And severe cardiomyopathy and LV dysfunction as noted on his most recent echo. #2 Acute exacerbation of systolic congestive heart failure. Echocardiogram revealed severe global hypokinesia with moderate to severe. Left ventricular systolic function with estimated ejection fraction 30-35%. #3 Acute exacerbation of suspected chronic obstructive pulmonary disease. #4 Chronic 50+ year pack per day smoking history. #5 Influenza A. #6 nonspecific pulmonary nodules may need to have outpatient follow-up, repeat CT of the chest in about 6 months. #7 acute atrial fibrillation with RVR, presently on amiodarone orally Recommendation: Consider discharge planning once the patient is cleared by cardiology. Follow-up with me on outpatient basis for his COPD and nonspecific pulmonary nodules. Patient is now on oral prednisone, and on oral Time with Patient: Less than 30
--- NOTE | 2017-01-09 14:31 | PN ---
This patient is feeling better. Denies any shortness of breath. Patient remains in normal sinus rhythm with occasional PACs. There was no definite evidence of atrial fibrillation, most likely it was atrial tachycardia. First and second heart sounds are normal. Lungs reveal bilateral scattered wheezes, patient can be discharged home on metoprolol. We will discontinue amiodarone and I will see the patient in the office in a couple of weeks. He will be evaluated with a stress test and down the road patient may probably need the cardiac catheterization.
[2017-01-09 14:35] VITALS: BP 106/70; PULSE 66; TEMP 98.1
--- NOTE | 2017-01-09 15:46 | P.DS ---
Providers Date of admission: 01/04/17 22:54 Expected date of discharge: 01/09/17 Attending physician: Sudeep Ty Consults: 01/04/17 22:55 Consult Physician Routine Consulting Provider: Maggie Posada Consult Reason/Comments: pneumonia, sepsis Do you want consulting provider notified?: Yes 01/06/17 14:11 Consult Physician Urgent Consulting Provider: Heather Burgess Consult Reason/Comments: new onset heart failure Do you want consulting provider notified?: Yes Primary care physician: [facility] Course: Patient is a 76-year-old patient, patient of Dr. Rai in the outpatient setting, with medical history significant for community-acquired pneumonia with failed outpatient treatment and previous nicotine dependence. Patient presented to the emergency department with complaints of difficulty breathing, cough and congestion. Onset of symptoms started approximately 3 weeks. Apparently patient was treated in the outpatient setting without significant improvement. Patient was found to have evidence of sepsis secondary to community-acquired pneumonia, failed outpatient treatment and acute exacerbation of COPD. In addition patient tested positive for influenza A. Patient also had evidence of acute congestive heart failure with left ventricular systolic function moderate to severely impaired with an EF between 30-35% with no evidence of pulmonary hypertension. Patient was admitted to the medical floor with consult to Dr. Posada for pulmonary service and Cardiology. Patient slowly recovered. A 2d ECHO showed sever LV dysfunction with a EF 30% Patient was given Entresto and he had a reaction. He reported feeling energized and speeding up, then very fatigued and tingling in his throat. He then developed intermittent ATRIAL TCHYCARDIA/SVT, originally thought Afib. He was placed on amiodarone drip and Elequis. Cardiology changed him to lisinopril form the Entresto. THe amiodarone was changed to PO and the Eliquis D /C'd He remained stable and improved enough for D/C. FINAL DX Sepsis secondary to community acquired pneumonia, with failed outpatient treatment Influenza A. Acute systolic congestive heart failure. SVT versus atrial tachycardia Acute exacerbation of COPD. Nicotine dependence. Patient Condition at Discharge: Fair Plan - Discharge Summary New Discharge Prescriptions: Amiodarone [Cordarone] 200 mg PO TID #90 tab Amoxic-Pot Clav 875-125Mg [Augmentin 875-125] 1 each PO Q12HR #14 tab Aspirin 81 mg PO DAILY #90 chew Ipratropium/Albuterol Sulfate [Combivent Respimat Inhaler] 2 puff INHALATION QID PRN #1 inhaler PRN Reason: Cough Lisinopril [Zestril] 5 mg PO DAILY #90 tab Metoprolol Succinate (ER) [Toprol XL] 50 mg PO DAILY #90 tab.er.24h predniSONE 10 mg PO HS #30 tab Discharge Medication List Albuterol Inhaler [Ventolin Hfa Inhaler] 1 - 2 puff INHALATION RT-Q6H PRN [History] Ibuprofen [Motrin] 200 - 400 mg PO Q6HR PRN 01/04/17 [History] Amiodarone [Cordarone] 200 mg PO TID #90 tab 01/09/17 [Rx] Amoxic-Pot Clav 875-125Mg [Augmentin 875-125] 1 each PO Q12HR #14 tab 01/09/17 [ Rx] Aspirin 81 mg PO DAILY #90 chew 01/09/17 [Rx] Ibuprofen [Motrin] 400 mg PO Q6HR PRN #0 tab 01/09/17 [Rx] Ipratropium/Albuterol Sulfate [Combivent Respimat Inhaler] 2 puff INHALATION QID PRN #1 inhaler 01/09/17 [Rx] Lisinopril [Zestril] 5 mg PO DAILY #90 tab 01/09/17 [Rx] Metoprolol Succinate (ER) [Toprol XL] 50 mg PO DAILY #90 tab.er.24h 01/09/17 [Rx ] guaiFENesin [Mucinex] 600 mg PO Q12HR tablet.er 01/09/17 [Rx] predniSONE 10 mg PO HS #30 tab 01/09/17 [Rx] Follow up Appointment(s)/Referral(s): Waqar Rai Jr, DO [Primary Care Provider] - 1-2 days (please call to make appointment-office is currently closed) Heather Burgess MD [STAFF PHYSICIAN] - 1 Week (please call to make appointment- office is currently closed) Discharge Disposition: HOME SELF-CARE
== END 2017-01-09 17:04 | disposition home or self-care (01) | DRG 871 ==
LOC: EC 19:26 → 3SUR 22:54 → 6SEL 01-07 11:05
PROVIDERS: ADMIT Family Medicine; ATTEND Family Medicine
DX: A41.9 Sepsis, unspecified organism (principal); I50.23 Acute on chronic systolic (congestive) heart failure; J10.08 Influenza due to other identified influenza virus with other specified pneumonia; I47.1 Supraventricular tachycardia; I42.9 Cardiomyopathy, unspecified; J44.1 Chronic obstructive pulmonary disease with (acute) exacerbation; R91.8 Other nonspecific abnormal finding of lung field; R06.2 Wheezing; Z87.01 Personal history of pneumonia (recurrent); Z79.899 Other long term (current) drug therapy; Z88.8 Allergy status to other drugs, medicaments and biological substances; Z87.891 Personal history of nicotine dependence; Z71.6 Tobacco abuse counseling; Z90.49 Acquired absence of other specified parts of digestive tract; Z82.5 Family history of asthma and other chronic lower respiratory diseases; Z79.2 Long term (current) use of antibiotics
CPT/HCPCS: 36415; 71020; 71250; 80048; 80053; 81003; 82533; 82550; 82553; 83036; 83605; 83735; 83880; 84484; 85025; 85379; 85610; 85730; 87040; 87070; 87086; 87205; 87502; 93005; 93306; 94640; 94644; 94760; 96361; 96365; 96374; 99285; 99291

== ENCOUNTER → 2017-01-31 | Outpatient (CLI) | payer MEDICARE ==
[2017-01-31 09:06] LABS: Anion Gap 7 mmol/L; Blood Urea Nitrogen 21 mg/dL (9-20); Calcium 8.7 mg/dL (8.4-10.2); Carbon Dioxide 27 mmol/L (22-30); Chloride 103 mmol/L (98-107); Glucose 131 mg/dL (74-99); Non-African American GFR(MDRD) >60 (>60 ml/min/1.73 sqM); Potassium 4.3 mmol/L (3.5-5.1); Sodium 137 mmol/L (137-145)
== END | disposition home or self-care (01) ==
LOC: LABWHC1 08:10
PROVIDERS: ATTEND Internal Medicine Cardiovascular Disease
DX: I50.9 Heart failure, unspecified (principal)
CPT/HCPCS: 36415; 80048; 83880

== ENCOUNTER 2017-02-10 10:42 | Day surgery (SDC) | payer MEDICARE ==
[2017-02-02 14:38] VITALS: BMI 29.9
[~2017-02-10 10:42] MED LIST: ALPRAZolam 0.25 MG TAB PO PRN; ALPRAZolam 0.5 MG TAB PO PRN; ASPIRIN 325 MG TAB PO STA; ATORVASTATIN 80 MG TAB PO STA; NITROGLYCERIN SL TABS 0.4 MG TAB SUBLINGUAL PRN; SODIUM CHLORIDE 0.9% 1,000 ML in EMPTY BAG 1 BAG IV ONE
[2017-02-10] MEDS ORDERED: LIDOCAINE 2% INJ 20 MG/ML (20 ML MDV) ONE (11:51)
[2017-02-10] MEDS ORDERED: fentaNYL (PF) 50 MCG/ML 2 ML AMP ONE (12:11)
[2017-02-10] MEDS ORDERED: MIDAZOLAM 2 MG/2 ML VIAL ONE (12:11)
[2017-02-10] MEDS ORDERED: fentaNYL (PF) 50 MCG/ML 2 ML AMP IV ONE (12:12)
[2017-02-10] MEDS: MIDAZOLAM 2 MG/2 ML VIAL IV ONE ×2 (12:14→12:19)
[2017-02-10] MEDS ORDERED: LIDOCAINE 2% INJ 20 MG/ML SQ ONE (12:17)
[2017-02-10] MEDS ORDERED: CLOPIDOGREL 75 MG TAB ONE (12:58)
[2017-02-10] MEDS ORDERED: BIVALIRUDIN BOLUS 250 MG/50 ML IV ONE (13:10)
[2017-02-10] MEDS ORDERED: BIVALIRUDIN 250 MG in SODIUM CHLORIDE 0.9% 50 ML IV ONE (13:10)
[2017-02-10] MEDS ORDERED: CLOPIDOGREL 75 MG TAB PO ONE (13:12)
[2017-02-10] MEDS ORDERED: NITROGLYCERIN 1000MCG/10ML SYRINGE INTRACORON ONE (13:13)
[2017-02-10] MEDS ORDERED: IOHEXOL 300 MG/ML 100 ML BOTTLE IV ONE ×2 (13:40)
[2017-02-10] MEDS ORDERED: MAG HYDROX/AL HYDROX/SIMETH 30 ML CUP PO PRN (13:43)
[2017-02-10] MEDS ORDERED: RX INFO: IV CONTRAST WAS GIVEN 1 EACH MISC MISCELLANE PRN (13:43)
[2017-02-10] MEDS ORDERED: ATROPINE SULFATE 0.1 MG/ML 10ML SYRINGE IV PRN (13:43)
[2017-02-10] MEDS ORDERED: NITROGLYCERIN SL TABS 0.4 MG TAB SUBLINGUAL PRN (13:43)
[2017-02-10] MEDS ORDERED: ZOLPIDEM 5 MG TAB PO PRN (13:43)
[2017-02-10] MEDS ORDERED: SODIUM CHLORIDE 0.9% 1,000 ML IV SCH (13:45)
[2017-02-10] MEDS ORDERED: ATORVASTATIN 80 MG TAB PO SCH (21:00)
[2017-02-11 06:46] LABS: Anion Gap 8 mmol/L; Blood Urea Nitrogen 17 mg/dL (9-20); Calcium 8.6 mg/dL (8.4-10.2); Carbon Dioxide 25 mmol/L (22-30); Chloride 101 mmol/L (98-107); Glucose 97 mg/dL (74-99); Non-African American GFR(MDRD) >60 (>60 ml/min/1.73 sqM); Potassium 4.3 mmol/L (3.5-5.1); Sodium 134 mmol/L (137-145)
--- NOTE | 2017-02-11 07:43 | CC ---
DATE OF SERVICE: Mr. Magana is a 76-year-old gentleman who was recently seen in the hospital for congestive cardiac failure and patient was found to have cardiomyopathy. In view of that, the cardiac catheterization was recommended to rule out underlying significant coronary artery disease. PROCEDURE: The right groin is prepped and draped in the usual manner and the skin is infiltrated with 2% Xylocaine. The right groin was prepped and draped in the usual manner and the skin was infiltrated with 2% Xylocaine. The right femoral artery was entered using Seldinger technique. A #6 [place] sheath was placed in. Selective coronary angiography was then performed in multiple projections and the left ventriculography was performed in 30 degrees TABOR projection. Patient tolerated the procedure well. HEMODYNAMICS: The left ventricular end-diastolic pressure is 16 to 20 mmHg prior to angiography and about 20 mmHg post angiography. Left ventriculography reveals generalized global hypokinesia with ejection fraction of 30% to 35%. SELECTIVE CORONARY ANGIOGRAPHY: Left main coronary artery is normal and patent. LAD is a good caliber blood vessel and mid LAD before the origin of the good-sized diagonal branch has about 70% eccentric stenosis. Circumflex coronary artery is nondominant in distribution. Right coronary artery is dominant and gives rise to a good size PDA and PLV branch. FINAL IMPRESSION: 1. This study reveals a 70% stenosis in the mid left anterior descending. 2. Right coronary artery and circumflex coronary artery are normal. 3. Left ventriculography reveals global hypokinesia with ejection fraction of 30% to 35%. RECOMMENDATIONS: We will review the film with Dr. Poon and consider stent to the LAD.
--- NOTE | 2017-02-11 08:00 | PTCA ---
DATE OF SERVICE: Mr. Magana is a 76-year-old male who has a history of cardiomyopathy, underwent cardiac catheterization by Dr. Mansi Burgess, was found to have significant stenosis involving the mid LAD. In view of that, recommendation made regarding angioplasty and stenting, the procedure as well as risks and complications were discussed with the patient who is in full understanding and agreement. PROCEDURE: A 6 [place] FR4 guiding catheter introduced into the system. After cannulating the left main, a 0.014 Advanced medium weight J-wire was advanced across the lesion, positioned distally, then a 2.5 x 18 Xience Alpine stent was deployed, postdilated at 14 atmospheres. Following that, the balloon was removed and a 3.0 x 12 mm NC Euphora balloon was advanced and one inflation at 14 atmospheres in the proximal segment of the stent was done. Following that, the balloon and the guidewire were withdrawn back in the guiding catheter. Images were obtained and repeated. Those images reveal stable successful stenting at that point. The guiding catheter, the balloon and the guidewire were removed. The sheath was removed. Hemostasis was obtained with deployment of an Angio-Seal. There was no immediate complications. The patient is returned to his room in stable condition. Of note, the patient received Angiomax per protocol as well as oral loading dose of clopidogrel. He had chest pain and EKG changes with the inflation that resulted in the procedure. RESULT: Successful stenting of the mid LAD with reduction in stenosis from 70% to 0%. RECOMMENDATION: Patient will be continued on aspirin, Plavix, beta rahul, paced inhibitor and statin. The importance of dual antiplatelet treatment was discussed with the patient and his family and they are in full understanding and agreement. HALLIE
[2017-02-11] MEDS ORDERED: METOPROLOL SUCCINATE (ER) 50 MG TAB.ER.24H PO SCH (09:00)
[2017-02-11] MEDS ORDERED: LISINOPRIL 5 MG TAB PO SCH (09:00)
[2017-02-11] MEDS ORDERED: ASPIRIN 81 MG CHEW PO SCH (09:00)
[2017-02-11 10:33] VITALS: BP 104/74; PULSE 101; RESP 18; TEMP 98.5
--- NOTE | 2017-02-11 10:54 | PN ---
This patient was admitted for cardiac catheterization, was found to have a 70% stenosis in the mid LAD, underwent a Xience stent placement. Patient is doing fairly well. Patient's medications are reviewed. Right groin is normal. First and second heart sounds are normal. Lungs are clear to auscultation and percussion. Patient will be discharged home. We will continue the current medications and see him in the office in 2 weeks.
[2017-02-11] MEDS ORDERED: CLOPIDOGREL 75 MG TAB PO SCH (12:00)
== END 2017-02-11 11:01 | disposition home or self-care (01) ==
LOC: CATHCVL 10:42 → 6SEL 13:36 → CATHCVL 02-11 11:01
PROVIDERS: ATTEND Internal Medicine Cardiovascular Disease
DX: I25.10 Atherosclerotic heart disease of native coronary artery without angina pectoris (principal); Z87.891 Personal history of nicotine dependence; I50.9 Heart failure, unspecified; I42.9 Cardiomyopathy, unspecified; J44.9 Chronic obstructive pulmonary disease, unspecified
CPT/HCPCS: 93458; 85347; 80048; 99152; 99153 ×5; C9600; C1769 ×2; C1760; C1887; C1894; C1725; C1874; J2001; J2250; J3010; Q9967; J0583

== ENCOUNTER → 2017-02-23 | Outpatient (CLI) | payer MEDICARE ==
[2017-02-23 09:46] LABS: Anion Gap 9 mmol/L; Blood Urea Nitrogen 14 mg/dL (9-20); Calcium 9.4 mg/dL (8.4-10.2); Carbon Dioxide 27 mmol/L (22-30); Chloride 102 mmol/L (98-107); Glucose 104 mg/dL (74-99); Non-African American GFR(MDRD) >60 (>60 ml/min/1.73 sqM); Potassium 4.5 mmol/L (3.5-5.1); Sodium 138 mmol/L (137-145)
== END | disposition home or self-care (01) ==
LOC: LABWHC1 07:51
PROVIDERS: ATTEND Internal Medicine Cardiovascular Disease
DX: I50.9 Heart failure, unspecified (principal)
CPT/HCPCS: 36415; 80048; 83880

== ENCOUNTER → 2017-04-01 | Outpatient (CLI) | payer MEDICARE ==
[2017-04-01 09:04] LABS: Anion Gap 9 mmol/L; Blood Urea Nitrogen 17 mg/dL (9-20); Carbon Dioxide 25 mmol/L (22-30); Chloride 104 mmol/L (98-107); Glucose 102 mg/dL (74-99); Non-African American GFR(MDRD) >60 (>60 ml/min/1.73 sqM); Potassium 4.5 mmol/L (3.5-5.1); Sodium 138 mmol/L (137-145)
== END | disposition home or self-care (01) ==
LOC: LABWHC1 08:02
PROVIDERS: ATTEND Internal Medicine Cardiovascular Disease
DX: I50.9 Heart failure, unspecified (principal)
CPT/HCPCS: 36415; 80048

== ENCOUNTER 2017-05-17 08:43 | Inpatient (IN) | payer MEDICARE ==
[2017-05-17] MEDS ORDERED: SODIUM CHLORIDE 0.9% 1,000 ML IV STA (09:13)
[2017-05-17] MEDS ORDERED: KETOROLAC 30 MG/ML 1 ML VIAL IVP STA (09:14)
[2017-05-17 09:44] LABS: Appearance,Urine Clear (Clear); Bilirubin,Urine Negative (Negative); Glucose,Urine (UA) Negative (Negative); Ketones,Urine Negative (Negative); Leukocyte Esterase,Urine Negative (Negative); Nitrite,Urine Negative (Negative); PH, Urine 5.5 (5.0-8.0); Protein,Urine Negative (Negative); Specific Gravity,Urine 1.007 (1.001-1.035); UA Billing (MACRO vs. MICRO) CHEM; Urobilinogen,Urine <2.0 mg/dL (<2.0)
[2017-05-17 09:45] LABS: Basophils % (A) 0 %; CH 31.8; CHCM 35.4; Eosinophils # (A) 0.1 k/uL (0-0.7); Eosinophils % (A) 1 %; HCT 35.2 % (39.0-53.0); HDW 2.42; HGB 12.7 gm/dL (13.0-17.5); Luc # (Auto) 0.12; Luc % (Auto) 1; Lymphocytes # (A) 1.7 k/uL (1.0-4.8); Lymphocytes % (A) 13 %; MCH 32.5 pg (25.0-35.0); MCV 90.2 fL (80.0-100.0); Mean Platelet Volume 8.6; Monocytes # (A) 0.9 k/uL (0-1.0); Monocytes % (A) 7 %; Neutrophils # (A) 10.1 k/uL (1.3-7.7); Neutrophils % (A) 78 %; RDW 14.1 % (11.5-15.5)
[2017-05-17 09:57] LABS: INR 1.1 (<1.1); Partial Thromboplastin Time 25.8 sec (22.0-30.0); Prothrombin Time 11.2 sec (9.0-12.0)
[2017-05-17 09:59] LABS: ALT 41 U/L (21-72); AST 22 U/L (17-59); Alkaline Phosphatase 79 U/L (38-126); Amylase 32 U/L (30-110); Anion Gap 9 mmol/L; Blood Urea Nitrogen 18 mg/dL (9-20); Calcium 9.1 mg/dL (8.4-10.2); Carbon Dioxide 23 mmol/L (22-30); Chloride 101 mmol/L (98-107); Glucose 169 mg/dL (74-99); Non-African American GFR(MDRD) >60 (>60 ml/min/1.73 sqM); Potassium 3.8 mmol/L (3.5-5.1); Sodium 133 mmol/L (137-145); Total Bilirubin 1.4 mg/dL (0.2-1.3)
--- NOTE | 2017-05-17 10:03 | XR ---
EXAMINATION TYPE: XR abdomen acute w cxr DATE OF EXAM: 05/17/2017 CLINICAL HISTORY: Epigastric pain for 4 days. TECHNIQUE: Single frontal view of chest is obtained. Supine and upright views of the abdomen are acq uired. COMPARISON: CT chest January 07, 2017 chest x-ray February 24, 2017. FINDINGS: Some patchy basilar scarring and/or atelectasis remains present. No large pleural effusion or pneumothorax is seen bilaterally. Cardiac silhouette size appears within normal limits. Osseous structures are intact. Gas is noted in nondistended small bowel loops. Gas and fecal material is seen in nondistended colon . No pneumoperitoneum, visceromegaly, or suspicious calcification is identified. The osseous struc tures are intact. Few scattered pelvic phleboliths are seen. IMPRESSION: 1. Patchy bibasilar atelectasis and/or scarring. 2. Overall nonobstructive bowel gas pattern.
[2017-05-17] MEDS ORDERED: RX INFO: IV CONTRAST WAS GIVEN 1 EACH MISC MISCELLANE PRN (10:31)
--- NOTE | 2017-05-17 11:46 | CT ---
EXAMINATION TYPE: CT abdomen pelvis w con DATE OF EXAM: 05/17/2017 COMPARISON: Correlation radiograph same day HISTORY: 76-year-old male with Pelvic pain. Diarrhea for 4 to 5 days. TECHNIQUE: Contiguous axial scanning of the abdomen and pelvis following administration of 100 ml Omn ipaque 300 IV contrast. Delayed images through the kidneys and coronal/sagittal reconstructions perf ormed. CT DLP: 1395 mGycm Automated exposure control for dose reduction was used. FINDINGS: The heart is normal size without pericardial effusion. Strandy areas of atelectasis or scarring present at the lung bases. More nodular areas are seen in th e posterior right lung base measuring up to 7 mm. 3 such areas are seen adjacent to each other and sh ould be reassessed at follow-up. This region was obscured on prior 01/07/2017 CT chest due to adjacent consolidation/volume loss. 4 mm subpleural pulmonary nodule peripheral left base appears to have been present and 01/07/2017. Tiny hiatal hernia. Liver shows a tiny subcentimeter hypodensity anterior mid aspect to small for acc urate CT characterization, probable cyst. Portal venous system is patent. No biliary ductal dilatatio n. Gallbladder, right adrenal gland, spleen, and pancreas show no gross abnormality. 1.5 cm hypodense lesion posterior cortex right kidney suggestive of a cyst. Additional hypodensity to o small for accurate CT characterization near the central mid right kidney and a couple tiny subcenti meter hypodensities left kidney also likely all cysts. Symmetric uptake and excretion of contrast fro m both kidneys. Nonspecific 1.2 cm nodularity right adrenal gland. In retrospect, this was present on the patient's CT chest and density there is measured at 8 Hounsfield units. 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 No dilated small bowel or free air. No mesenteric or retroperitoneal lymphadenopathy. Incidental du plicated IVC. Tiny fatty hernia. Colonic diverticulosis, greatest in the sigmoid colon. There is moderate pericolonic inflammatory fat stranding and wall thickening along the mid to distal sigmoid with some trace tracking inflammatory fluid in the pelvis and some inflammation tracking up the retroperitoneum at the level of the aortic bifurcation as well. Bladder is urine distended. Prostate gland enlargement measuring 5.5 cm wide. Pelvic phleboliths. Bones: Degenerative changes at the SI joints and mid to lower lumbar spine. No osseous destructive pr ocess. IMPRESSION: 1. DIFFUSE COLONIC DIVERTICULOSIS GREATEST IN THE SIGMOID COLON. THERE IS ACUTE DIVERTICULITIS AT THE MID TO DISTAL SIGMOID WITH MODERATE SURROUNDING INFLAMMATION. NO ABSCESS OR FREE AIR. 2. BASILAR PULMONARY NODULES MEASURING UP TO 7 MM. THE LARGER NODULES WERE OBSCURED ON PRIOR CT CHEST . 3 - [address] FOLLOWED BY AN 18 - [address] RECOMMENDED TO ASSESS FOR STABILITY. 3. 1.2 CM LEFT ADRENAL GLAND NODULE SUGGESTIVE OF A BENIGN LIPID RICH ADRENAL ADENOMA WHEN CORRELATIN G WITH PRIOR CT CHEST. 4. 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
[2017-05-17] MEDS ORDERED: PIPERACILLIN-TAZOBACTAM 3.375 GM in DEXTROSE/WATER 1 50ML.BAG IVPB STA (12:24)
--- NOTE | 2017-05-17 12:28 | ED ---
Abdominal Pain HPI - General Chief Complaint: Abdominal Pain Stated Complaint: Abd Pain Time Seen by Provider: 05/17/17 09:06 Source: patient, family, RN notes reviewed, old records reviewed Mode of arrival: wheelchair Limitations: no limitations - History of Present Illness Initial Comments: This is a 76-year-old male with a history of pneumonia in heart disease who is had for 5 days of lower abdominal pain with some feeling of being hot no gross or overt fevers or chills or sweats. He denies any nausea a diarrhea he has any history of an appendectomy. No known history of diverticular disease. MD Complaint: abdominal pain - Related Data Home Medications Medication Instructions Recorded Confirmed Furosemide [Lasix] 40 mg PO DAILY 05/17/17 05/17/17 Lisinopril [Zestril] 5 mg PO BID 05/17/17 05/17/17 Spironolactone [Aldactone] 25 mg PO HS 05/17/17 05/17/17 Tamsulosin HCl [Flomax] 0.4 mg PO HS 05/17/17 05/17/17 Previous Rx's Medication Instructions Recorded Aspirin 81 mg PO DAILY #90 chew 01/09/17 Metoprolol Succinate (ER) [Toprol 50 mg PO DAILY #90 tab.er.24h 01/09/17 XL] Atorvastatin [Lipitor] 80 mg PO DAILY #30 tab 02/11/17 Clopidogrel [Plavix] 75 mg PO DAILY #30 tablet 02/11/17 Allergies Allergy/AdvReac Type Severity Reaction Status Date / Time sacubitril [From Entresto] Allergy Swelling Verified 05/17/17 09:23 valsartan [From Entresto] Allergy Swelling Verified 05/17/17 09:23 Review of Systems ROS Statement: Those systems with pertinent positive or pertinent negative responses have been documented in the HPI. ROS Other: All systems not noted in ROS Statement are negative. Past Medical History Past Medical History: Hypertension Additional Past Medical History / Comment(s): pneumonia History of Any Multi-Drug Resistant Organisms: None Reported Past Surgical History: Appendectomy Past Anesthesia/Blood Transfusion Reactions: No Reported Reaction Past Psychological History: No Psychological Hx Reported Smoking Status: Never smoker Past Alcohol Use History: None Reported Past Drug Use History: None Reported - Past Family History Father Additional Family Medical History / Comment(s): EMPHYZEMA R/T WORK General Exam - General Exam Comments Initial Comments: This is a well-developed well-nourished awake alert oriented 3 male Limitations: no limitations General appearance: alert, in no apparent distress Head exam: Present: atraumatic, normocephalic, normal inspection Eye exam: Present: normal appearance, PERRL, EOMI. Absent: scleral icterus, conjunctival injection, periorbital swelling ENT exam: Present: normal exam, mucous membranes moist Neck exam: Present: normal inspection. Absent: tenderness, meningismus, lymphadenopathy Respiratory exam: Present: normal lung sounds bilaterally. Absent: respiratory distress, wheezes, rales, rhonchi, stridor Cardiovascular Exam: Present: regular rate, normal rhythm, normal heart sounds. Absent: systolic murmur, diastolic murmur, rubs, gallop, clicks GI/Abdominal exam: Present: soft, tenderness (Suprapubic tenderness to palpation with slight voluntary guarding no rebound), normal bowel sounds. Absent: distended, guarding, rebound, rigid Rectal exam: Present: deferred Extremities exam: Present: normal inspection, full ROM, normal capillary refill. Absent: tenderness, pedal edema, joint swelling, calf tenderness Back exam: Present: normal inspection Neurological exam: Present: alert, oriented X3, CN II-XII intact Psychiatric exam: Present: normal affect, normal mood Skin exam: Present: warm, dry, intact, normal color. Absent: rash Course Vital Signs 05/17/17 05/17/17 08:56 11:49 Temperature 97.9 F 98.2 F Pulse Rate 88 60 Respiratory 18 16 Rate Blood Pressure 103/56 96/58 O2 Sat by Pulse 96 100 Oximetry Medical Decision Making - Medical Decision Making I did discuss the findings with patient family members as well as Dr. Ty. Patient will be admitted with IV antibiotics IV fluids and pain control. - Lab Data Result diagrams: 05/17/17 09:00 05/17/17 09:00 Lab Results 05/17/17 05/17/17 05/17/17 Range/Units 09:00 09:00 09:00 WBC 13.0 H (3.8-10.6) k/uL RBC 3.90 L (4.30-5.90) m/uL Hgb 12.7 L (13.0-17.5) gm/dL Hct 35.2 L (39.0-53.0) % MCV 90.2 (80.0-100.0) fL MCH 32.5 (25.0-35.0) pg MCHC 36.0 (31.0-37.0) g/dL RDW 14.1 (11.5-15.5) % Plt Count 165 (150-450) k/uL Neutrophils % 78 % Lymphocytes % 13 % Monocytes % 7 % Eosinophils % 1 % Basophils % 0 % Neutrophils # 10.1 H (1.3-7.7) k/uL Lymphocytes # 1.7 (1.0-4.8) k/uL Monocytes # 0.9 (0-1.0) k/uL Eosinophils # 0.1 (0-0.7) k/uL Basophils # 0.0 (0-0.2) k/uL PT (9.0-12.0) sec INR (<1.1) APTT (22.0-30.0) sec Sodium 133 L (137-145) mmol/L Potassium 3.8 (3.5-5.1) mmol/L Chloride 101 (98-107) mmol/L Carbon Dioxide 23 (22-30) mmol/L Anion Gap 9 mmol/L BUN 18 (9-20) mg/dL Creatinine 1.00 (0.66-1.25) mg/dL Est GFR (MDRD) Af Amer >60 (>60 ml/min/1.73 sqM) Est GFR (MDRD) Non-Af >60 (>60 ml/min/1.73 sqM) Glucose 169 H (74-99) mg/dL Plasma Lactic Acid Nolberto 1.4 (0.7-2.0) mmol/L Calcium 9.1 (8.4-10.2) mg/dL Total Bilirubin 1.4 H (0.2-1.3) mg/dL AST 22 (17-59) U/L ALT 41 (21-72) U/L Alkaline Phosphatase 79 (38-126) U/L Total Protein 6.0 L (6.3-8.2) g/dL Albumin 3.8 (3.5-5.0) g/dL Amylase 32 (30-110) U/L Lipase 52 (23-300) U/L Urine Color Urine Appearance (Clear) Urine pH (5.0-8.0) Ur Specific [place] (1.001-1.035) Urine Protein (Negative) Urine Glucose (UA) (Negative) Urine Ketones (Negative) Urine Blood (Negative) Urine Nitrite (Negative) Urine Bilirubin (Negative) Urine Urobilinogen (<2.0) mg/dL Ur Leukocyte Esterase (Negative) 05/17/17 05/17/17 Range/Units 09:00 09:30 WBC (3.8-10.6) k/uL RBC (4.30-5.90) m/uL Hgb (13.0-17.5) gm/dL Hct (39.0-53.0) % MCV (80.0-100.0) fL MCH (25.0-35.0) pg MCHC (31.0-37.0) g/dL RDW (11.5-15.5) % Plt Count (150-450) k/uL Neutrophils % % Lymphocytes % % Monocytes % % Eosinophils % % Basophils % % Neutrophils # (1.3-7.7) k/uL Lymphocytes # (1.0-4.8) k/uL Monocytes # (0-1.0) k/uL Eosinophils # (0-0.7) k/uL Basophils # (0-0.2) k/uL PT 11.2 (9.0-12.0) sec INR 1.1 (<1.1) APTT 25.8 (22.0-30.0) sec Sodium (137-145) mmol/L Potassium (3.5-5.1) mmol/L Chloride (98-107) mmol/L Carbon Dioxide (22-30) mmol/L Anion Gap mmol/L BUN (9-20) mg/dL Creatinine (0.66-1.25) mg/dL Est GFR (MDRD) Af Amer (>60 ml/min/1.73 sqM) Est GFR (MDRD) Non-Af (>60 ml/min/1.73 sqM) Glucose (74-99) mg/dL Plasma Lactic Acid Nolberto (0.7-2.0) mmol/L Calcium (8.4-10.2) mg/dL Total Bilirubin (0.2-1.3) mg/dL AST (17-59) U/L ALT (21-72) U/L Alkaline Phosphatase (38-126) U/L Total Protein (6.3-8.2) g/dL Albumin (3.5-5.0) g/dL Amylase (30-110) U/L Lipase (23-300) U/L Urine Color Yellow Urine Appearance Clear (Clear) Urine pH 5.5 (5.0-8.0) Ur Specific [place] 1.007 (1.001-1.035) Urine Protein Negative (Negative) Urine Glucose (UA) Negative (Negative) Urine Ketones Negative (Negative) Urine Blood Negative (Negative) Urine Nitrite Negative (Negative) Urine Bilirubin Negative (Negative) Urine Urobilinogen <2.0 (<2.0) mg/dL Ur Leukocyte Esterase Negative (Negative) - Radiology Data Radiology results: image reviewed Interpreted by me: I did review the imaging and reports are is evidence of diverticulitis there is acute at the mid to distal sigmoid with moderate surrounding inflammation. No abscess no free air. Disposition Clinical Impression: Acute diverticulitis, Abdominal pain, Leukocytosis Disposition: ADMITTED IP TO THIS [facility] Condition: Stable Referrals: Waqar Rai Jr, DO [Primary Care Provider] - 1-2 days
[2017-05-17] MEDS ORDERED: ACETAMINOPHEN TAB 325 MG TAB PO PRN (12:29)
[2017-05-17] MEDS ORDERED: ONDANSETRON 4 MG/2 ML VIAL IVP PRN (12:29)
[2017-05-17] MEDS ORDERED: NALOXONE 0.4 MG/ML 1 ML VIAL IV PRN (12:29)
[2017-05-17] MEDS ORDERED: HYDROmorphone 1 MG/ML 1 ML SYRINGE IV PRN (12:29)
[2017-05-17] MEDS: PIPERACILLIN-TAZOBACTAM 3.375 GM in DEXTROSE/WATER 1 50ML.BAG IVPB SCH ×2 (16:01→23:14)
[2017-05-17] MEDS: SODIUM CHLORIDE 0.9% 1,000 ML IV SCH (16:06)
[2017-05-17] MEDS: SPIRONOLACTONE 25 MG TAB PO SCH (21:26)
[2017-05-17] MEDS: FAMOTIDINE 20 MG TAB PO SCH (21:26)
[2017-05-17] MEDS: TAMSULOSIN 0.4 MG CAP.ER.24H PO SCH (21:28)
[2017-05-18] MEDS: LISINOPRIL 5 MG TAB PO SCH ×3 (00:38→23:53)
[2017-05-18] MEDS: SODIUM CHLORIDE 0.9% 1,000 ML IV SCH ×3 (00:46→18:34)
[2017-05-18] MEDS: FAMOTIDINE 20 MG TAB PO SCH ×2 (07:54→21:16)
[2017-05-18] MEDS: CLOPIDOGREL 75 MG TAB PO SCH (07:54)
[2017-05-18] MEDS: ATORVASTATIN 80 MG TAB PO SCH (07:54)
[2017-05-18] MEDS: PIPERACILLIN-TAZOBACTAM 3.375 GM in DEXTROSE/WATER 1 50ML.BAG IVPB SCH ×2 (07:54→15:45)
[2017-05-18] MEDS: FUROSEMIDE 40 MG TAB PO SCH (07:54)
[2017-05-18] MEDS: ASPIRIN 81 MG CHEW PO SCH (07:54)
[2017-05-18 08:41] LABS: Basophils % (A) 0 %; CH 30.9; CHCM 34.5; Eosinophils # (A) 0.3 k/uL (0-0.7); Eosinophils % (A) 4 %; HCT 32.7 % (39.0-53.0); HDW 2.48; HGB 11.1 gm/dL (13.0-17.5); Luc # (Auto) 0.14; Luc % (Auto) 2; Lymphocytes # (A) 1.3 k/uL (1.0-4.8); Lymphocytes % (A) 16 %; MCH 30.7 pg (25.0-35.0); MCHC 34.1 g/dL (31.0-37.0); Mean Platelet Volume 8.8; Monocytes # (A) 0.6 k/uL (0-1.0); Monocytes % (A) 8 %; Neutrophils # (A) 5.5 k/uL (1.3-7.7); Neutrophils % (A) 70 %; RBC 3.63 m/uL (4.30-5.90); RDW 13.9 % (11.5-15.5); WBC 7.9 k/uL (3.8-10.6); WBC (Perox) 8.19
[2017-05-18 08:56] LABS: Anion Gap 9 mmol/L; Blood Urea Nitrogen 11 mg/dL (9-20); Calcium 8.1 mg/dL (8.4-10.2); Carbon Dioxide 23 mmol/L (22-30); Chloride 105 mmol/L (98-107); Glucose 171 mg/dL (74-99); Non-African American GFR(MDRD) >60 (>60 ml/min/1.73 sqM); Potassium 3.5 mmol/L (3.5-5.1); Sodium 137 mmol/L (137-145)
[2017-05-18] MEDS: METOPROLOL SUCCINATE (ER) 50 MG TAB.ER.24H PO SCH (08:57)
--- NOTE | 2017-05-18 13:52 | P.HPIM ---
History of Present Illness H&P Date: 05/18/17 Chief Complaint: abdominal pain This is a pleasant 76 y/o wm pt who cam to the ER last nighjt with 5 day h/o of increased LL pain. He reports no diarhea, nausea, vomitting, chest pain, pressures, sob. CT abdomen shows diverticulosis, with acute diverticulitis as well .No evidence of abcess.. He was started on IV abx and clears diet THis AM, he feels better. Less pain. Review of Systems All systems: negative Past Medical History Past Medical History: Heart Failure, COPD, Hyperlipidemia, Hypertension, Pneumonia, Prostate Disorder Additional Past Medical History / Comment(s): Pneumonia with sepsis, cardiomyopathy, BPH, sinus problems at times. History of Any Multi-Drug Resistant Organisms: None Reported Past Surgical History: Appendectomy, Heart Catheterization With Stent, Hernia Repair Additional Past Surgical History / Comment(s): 02/10/17 PCI with stent, colonoscopy/polypectomy-benign, bilateral cataract removal, L inguinal hernia repair, vasectomy. Past Anesthesia/Blood Transfusion Reactions: No Reported Reaction Date of Last Stent Placement:: 02/10/17 Past Psychological History: No Psychological Hx Reported Additional Psychological History / Comment(s): Pt resides with his spouse. He is independent. Smoking Status: Former smoker Past Alcohol Use History: None Reported Past Drug Use History: None Reported - Past Family History Father Family Medical History: COPD Additional Family Medical History / Comment(s): EMPHYZEMA due to WORK exposure. Father at the age of 81 yrs. Mother Family Medical History: No Reported History Additional Family Medical History / Comment(s): Mother was healthy and lived to be 96yrs old. Medications and Allergies Home Medications Medication Instructions Recorded Confirmed Type Furosemide [Lasix] 40 mg PO DAILY 05/17/17 05/17/17 History Lisinopril [Zestril] 5 mg PO BID 05/17/17 05/17/17 History Spironolactone [Aldactone] 25 mg PO HS 05/17/17 05/17/17 History Tamsulosin HCl [Flomax] 0.4 mg PO HS 05/17/17 05/17/17 History Allergies Allergy/AdvReac Type Severity Reaction Status Date / Time sacubitril [From Entresto] Allergy Swelling Verified 05/17/17 09:23 valsartan [From Entresto] Allergy Swelling Verified 05/17/17 09:23 Physical Exam Vitals: Vital Signs Temp Pulse Resp BP Pulse Ox 05/18/17 07:00 97.6 F 71 18 95/58 95 05/18/17 02:48 71 18 90/60 05/17/17 23:36 98.7 F 71 89/53 05/17/17 23:00 99.3 F 80 16 93/53 95 05/17/17 21:15 71 98/60 05/17/17 16:06 97.7 F 58 L 19 94/51 95 Intake and Output 05/17/17 05/18/17 05/18/17 22:59 06:59 14:59 Intake Total 200 100 Balance 200 100 Intake: Oral 200 100 Other: Voiding Method Toilet Toilet # Voids 2 1 3 # Bowel Movements 0 - Constitutional General appearance: average body habitus - EENT Eyes: EOMI, PERRLA - Neck Neck: no lymphadenopathy, normal ROM, no thyromegaly - Respiratory Respiratory: bilateral: CTA - Cardiovascular Rhythm: regular Heart sounds: normal: S1, S2 Abnormal Heart Sounds: no systolic murmur - Gastrointestinal General gastrointestinal: no hepatomegaly, normal bowel sounds, no rigid, no splenomegaly Localized gastrointestinal: tender: LLQ - Neurologic Neurologic: CNII-XII intact - Psychiatric Psychiatric: A&O x's 3, appropriate affect Results CBC & Chem 7: 05/18/17 08:07 05/18/17 08:07 Labs: Abnormal Lab Results - Last 24 Hours (Table) 05/18/17 05/18/17 Range/Units 08:07 08:07 RBC 3.63 L (4.30-5.90) m/uL Hgb 11.1 L (13.0-17.5) gm/dL Hct 32.7 L (39.0-53.0) % Plt Count 141 L (150-450) k/uL Glucose 171 H (74-99) mg/dL Calcium 8.1 L (8.4-10.2) mg/dL Microbiology - Last 24 Hours (Table) 05/17/17 09:30 Blood Culture - Preliminary Blood No Growth after 24 hours Thrombosis Risk Factor Assmnt - DVT/VTE Prophylaxis DVT/VTE Prophylaxis: Mechanical Prophylaxis ordered - Choose All That Apply Any of the Below Risk Factors Present?: Yes Each Factor Represents 1 point: Abnormal pulmonary function (COPD), Obesity ( BMI >25) Other Risk Factors: Yes Each Risk Factor Represents 2 Points: Age 61-74 years Other congenital or acquired thrombophilia - If yes, enter type in comment: No Thrombosis Risk Factor Assessment Total Risk Factor Score: 4 Thrombosis Risk Factor Assessment Level: Moderate Risk Assessment and Plan Plan: Acute Diverticulitis: continue IV Abx of Zosyn, morphine for pain, clears diet COPD: STABLE, Hypertension:cont lisinopril, metoprolol, plavix Hyperlipidemaia:continue atorvastin CHF:continue lasix gi prophlaxis: contie pepcid DVT prophylaxis: mechainacl SCD + plavix cont tx and reevaluate in am
[2017-05-18 20:33] LABS: Hemoglobin A1C 5.7 % (4.2-6.1)
[2017-05-18] MEDS: TAMSULOSIN 0.4 MG CAP.ER.24H PO SCH (21:16)
[2017-05-18] MEDS: SPIRONOLACTONE 25 MG TAB PO SCH (21:37)
[2017-05-19 00:23] VITALS: RESP 16
[2017-05-19] MEDS: PIPERACILLIN-TAZOBACTAM 3.375 GM in DEXTROSE/WATER 1 50ML.BAG IVPB SCH ×2 (01:09→09:16)
[2017-05-19] MEDS: SODIUM CHLORIDE 0.9% 1,000 ML IV SCH (05:38)
[2017-05-19 07:44] VITALS: BP 100/55; PULSE 70; TEMP 97.7
[2017-05-19 09:04] LABS: Basophils % (A) 0 %; CH 30.8; CHCM 33.6; Eosinophils # (A) 0.3 k/uL (0-0.7); Eosinophils % (A) 5 %; HCT 35.2 % (39.0-53.0); HDW 2.59; Luc # (Auto) 0.12; Luc % (Auto) 2; Lymphocytes # (A) 1.3 k/uL (1.0-4.8); Lymphocytes % (A) 23 %; MCH 31.4 pg (25.0-35.0); MCV 92.3 fL (80.0-100.0); Mean Platelet Volume 8.9; Monocytes # (A) 0.4 k/uL (0-1.0); Monocytes % (A) 8 %; Neutrophils # (A) 3.5 k/uL (1.3-7.7); Neutrophils % (A) 62 %; RBC 3.81 m/uL (4.30-5.90); RDW 13.6 % (11.5-15.5); WBC 5.6 k/uL (3.8-10.6); WBC (Perox) 5.81
[2017-05-19] MEDS: FUROSEMIDE 40 MG TAB PO SCH (09:19)
[2017-05-19] MEDS: ATORVASTATIN 80 MG TAB PO SCH (09:19)
[2017-05-19] MEDS: FAMOTIDINE 20 MG TAB PO SCH (09:19)
[2017-05-19] MEDS: LISINOPRIL 5 MG TAB PO SCH (09:19)
[2017-05-19] MEDS: ASPIRIN 81 MG CHEW PO SCH (09:19)
[2017-05-19] MEDS: CLOPIDOGREL 75 MG TAB PO SCH (09:19)
[2017-05-19] MEDS: METOPROLOL SUCCINATE (ER) 50 MG TAB.ER.24H PO SCH (09:19)
[2017-05-19 09:20] LABS: Anion Gap 8 mmol/L; Blood Urea Nitrogen 9 mg/dL (9-20); Calcium 8.6 mg/dL (8.4-10.2); Carbon Dioxide 25 mmol/L (22-30); Chloride 107 mmol/L (98-107); Glucose 160 mg/dL (74-99); Non-African American GFR(MDRD) >60 (>60 ml/min/1.73 sqM); Potassium 3.5 mmol/L (3.5-5.1); Sodium 140 mmol/L (137-145)
--- NOTE | 2017-05-19 09:37 | P.DS ---
Providers Date of admission: 05/17/17 12:29 Expected date of discharge: 05/19/17 Attending physician: Sudeep Ty Primary care physician: [facility] Course: This is a pleasant 76-year-old white male who came emergency room on 2016. He complained of increasing left lower quadrant pain over the past 5 days. He denies any significant diarrhea but did have some nausea, but no emesis. He did not have any chest pains, pressures, shortness of breath. CT of the abdomen in the emergency room showed diverticulosis with acute diverticulitis. There is no evidence of abscess or phlegmon. He was started on IV antibiotics Zosyn and a clear liquid diet. His pain quickly resolved. And after 24 hours she was feeling back to his normal self. His diet was advanced, and IV a.m. of 05/19/2017 was ready to go home. Final diagnosis. Acute Diverticulitist COPD Hypertension Hyperlipidemia Chronic systolic congestive heart failure Patient Condition at Discharge: Stable Plan - Discharge Summary New Discharge Prescriptions: New Levofloxacin [Levaquin] 500 mg PO DAILY #7 tab metroNIDAZOLE [Flagyl] 500 mg PO Q8HR #21 tab Continue Aspirin 81 mg PO DAILY #90 chew Metoprolol Succinate (ER) [Toprol XL] 50 mg PO DAILY #90 tab.er.24h Atorvastatin [Lipitor] 80 mg PO DAILY #30 tab Clopidogrel [Plavix] 75 mg PO DAILY #30 tablet Tamsulosin HCl [Flomax] 0.4 mg PO HS Lisinopril [Zestril] 5 mg PO BID Furosemide [Lasix] 40 mg PO DAILY Spironolactone [Aldactone] 25 mg PO HS Discharge Medication List Aspirin 81 mg PO DAILY #90 chew 01/09/17 [Rx] Metoprolol Succinate (ER) [Toprol XL] 50 mg PO DAILY #90 tab.er.24h 01/09/17 [Rx ] Atorvastatin [Lipitor] 80 mg PO DAILY #30 tab 02/11/17 [Rx] Clopidogrel [Plavix] 75 mg PO DAILY #30 tablet 02/11/17 [Rx] Furosemide [Lasix] 40 mg PO DAILY 05/17/17 [History] Lisinopril [Zestril] 5 mg PO BID 05/17/17 [History] Spironolactone [Aldactone] 25 mg PO HS 05/17/17 [History] Tamsulosin HCl [Flomax] 0.4 mg PO HS 05/17/17 [History] Levofloxacin [Levaquin] 500 mg PO DAILY #7 tab 05/19/17 [Rx] metroNIDAZOLE [Flagyl] 500 mg PO Q8HR #21 tab 05/19/17 [Rx] Follow up Appointment(s)/Referral(s): Waqar Rai Jr, [Primary Care Provider] - 05/24/17 3:30 pm Patient Instructions/Handouts: Diverticulitis (DC) Activity/Diet/Wound Care/Special Instructions: Soft bland, lactose free. Discharge Disposition: HOME SELF-CARE
== END 2017-05-19 10:41 | disposition home or self-care (01) | DRG 392 ==
LOC: EC 08:43 → 4MS4W 12:29
PROVIDERS: ADMIT Family Medicine; ATTEND Family Medicine
DX: K57.32 Diverticulitis of large intestine without perforation or abscess without bleeding (principal); I50.22 Chronic systolic (congestive) heart failure; I42.9 Cardiomyopathy, unspecified; I11.0 Hypertensive heart disease with heart failure; J44.9 Chronic obstructive pulmonary disease, unspecified; E78.5 Hyperlipidemia, unspecified; Z87.891 Personal history of nicotine dependence; N40.0 Benign prostatic hyperplasia without lower urinary tract symptoms; Z79.02 Long term (current) use of antithrombotics/antiplatelets; Z79.82 Long term (current) use of aspirin; Z79.899 Other long term (current) drug therapy; Z88.8 Allergy status to other drugs, medicaments and biological substances
CPT/HCPCS: 36415; 74022; 74177; 80048; 80053; 81003; 82150; 83036; 83605; 83690; 85025; 85610; 85730; 87040; 96361; 96365; 96375; 99285

== ENCOUNTER 2017-07-05 14:12 | Emergency (ER) | payer MEDICARE ==
[2017-07-05 14:21] VITALS: BP 97/53; PULSE 52; RESP 20; TEMP 98.2
--- NOTE | 2017-07-05 14:45 | ED ---
General Adult HPI - General Chief complaint: Eye Problems Stated complaint: Eye Problems Time Seen by Provider: 07/05/17 14:31 Source: patient, RN notes reviewed Mode of arrival: ambulatory Limitations: no limitations - History of Present Illness Initial comments: 76-year-old male presents to the emergency department with a chief complaint of abnormal when necessary to the right eye. Patient states he came in from outside and all of a sudden he noticed blood around half of his right eye. Patient states he doesn't seem to be dripping but it just his eye is red. Patient denies any changes in vision any pain. Patient states is not recall any injury. Patient states he's never had anything like this before. Patient states he takes aspirin with no other blood thinners. Patient denies any recent fever, chills, shortness of breath, chest pain, back pain, abdominal pain, nausea vomiting, numbness or tingling, dysuria or hematuria, constipation or diarrhea, headaches or visual changes, or any other current symptoms. - Related Data Home Medications Medication Instructions Recorded Confirmed Furosemide [Lasix] 40 mg PO DAILY 05/17/17 07/05/17 Lisinopril [Zestril] 5 mg PO BID 05/17/17 07/05/17 Spironolactone [Aldactone] 25 mg PO HS 05/17/17 07/05/17 Tamsulosin HCl [Flomax] 0.4 mg PO HS 05/17/17 07/05/17 Previous Rx's Medication Instructions Recorded Aspirin 81 mg PO DAILY #90 chew 01/09/17 Metoprolol Succinate (ER) [Toprol 50 mg PO DAILY #90 tab.er.24h 01/09/17 XL] Atorvastatin [Lipitor] 80 mg PO DAILY #30 tab 02/11/17 Clopidogrel [Plavix] 75 mg PO DAILY #30 tablet 02/11/17 Allergies Allergy/AdvReac Type Severity Reaction Status Date / Time sacubitril [From Entresto] Allergy Swelling Verified 07/05/17 14:21 valsartan [From Entresto] Allergy Swelling Verified 07/05/17 14:21 Review of Systems ROS Statement: Those systems with pertinent positive or pertinent negative responses have been documented in the HPI. ROS Other: All systems not noted in ROS Statement are negative. Past Medical History Past Medical History: Heart Failure, COPD, Hyperlipidemia, Hypertension, Pneumonia, Prostate Disorder Additional Past Medical History / Comment(s): Pneumonia with sepsis, cardiomyopathy, BPH, sinus problems at times. History of Any Multi-Drug Resistant Organisms: None Reported Past Surgical History: Appendectomy, Heart Catheterization With Stent, Hernia Repair Additional Past Surgical History / Comment(s): 02/10/17 PCI with stent, colonoscopy/polypectomy-benign, bilateral cataract removal, L inguinal hernia repair, vasectomy. Past Anesthesia/Blood Transfusion Reactions: No Reported Reaction Date of Last Stent Placement:: 02/10/17 Past Psychological History: No Psychological Hx Reported Smoking Status: Former smoker Past Alcohol Use History: None Reported Past Drug Use History: None Reported - Past Family History Father Family Medical History: COPD Additional Family Medical History / Comment(s): EMPHYZEMA due to WORK exposure. Father at the age of 81 yrs. Mother Family Medical History: Cancer General Exam Limitations: no limitations General appearance: alert, in no apparent distress Head exam: Present: atraumatic, normocephalic, normal inspection Eye exam: Present: EOMI, conjunctival injection (Subconjunctival hematoma to the right eye). Absent: scleral icterus, periorbital swelling, periorbital tenderness Pupils: Present: normal accommodation ENT exam: Present: normal exam, mucous membranes moist Neck exam: Present: normal inspection. Absent: tenderness, meningismus, lymphadenopathy Respiratory exam: Present: normal lung sounds bilaterally. Absent: respiratory distress, wheezes, rales, rhonchi, stridor Cardiovascular Exam: Present: regular rate, normal rhythm, normal heart sounds. Absent: systolic murmur, diastolic murmur, rubs, gallop, clicks Back exam: Present: normal inspection Neurological exam: Present: alert, oriented X3 Psychiatric exam: Present: normal affect, normal mood Skin exam: Present: warm, dry, intact, normal color. Absent: rash Course Vital Signs 07/05/17 14:18 Temperature 98.2 F Pulse Rate 52 L Respiratory 20 Rate Blood Pressure 97/53 O2 Sat by Pulse 98 Oximetry Medical Decision Making - Medical Decision Making 76-year-old male presents emergency Department what appears to be subconjunctival hematoma. Patient was assessed. At this time a with lamp examination was performed does not show any corneal abrasion. This time we discussed care of this. We discussed follow-up return parameters all Disposition Clinical Impression: Subconjunctival hematoma Disposition: HOME SELF-CARE Condition: Stable Instructions: Subconjunctival Hemorrhage (ED) Additional Instructions: Please use medication as discussed. Please follow up with family doctor if symptoms have not improved over the next two days. Please return to the emergency room if your symptoms increase or worsen or for any other concerns. Referrals: Waqar Rai Jr, DO [Primary Care Provider] - 1-2 days Abdullahi Foster MD [STAFF PHYSICIAN] - 1-2 days Time of Disposition: 14:45
== END 2017-07-05 14:52 | disposition home or self-care (01) ==
LOC: EC 14:12
DX: S05.11XA Contusion of eyeball and orbital tissues, right eye, initial encounter (principal); I11.0 Hypertensive heart disease with heart failure; I50.9 Heart failure, unspecified; I42.9 Cardiomyopathy, unspecified; Z98.49 Cataract extraction status, unspecified eye; Z87.891 Personal history of nicotine dependence; Z79.899 Other long term (current) drug therapy; Z88.8 Allergy status to other drugs, medicaments and biological substances
CPT/HCPCS: 99283

== ENCOUNTER 2017-09-19 07:34 | Emergency (ER) | payer MEDICARE ==
--- NOTE | 2017-09-19 08:01 | ED ---
General Adult HPI - General Chief complaint: Upper Respiratory Infection Stated complaint: Cough Time Seen by Provider: 09/19/17 07:47 Source: patient, family, RN notes reviewed Mode of arrival: ambulatory Limitations: no limitations - History of Present Illness Initial comments: Patient is a pleasant 76-year-old male presenting to the emergency department with cough. Symptoms started around a week ago. Patient does have some shortness of breath but only with cough. Cough does have occasional yellow sputum. No chest pain. Patient did see his doctor and was started on Augmentin without improvement of symptoms. Patient had hemoglobin of 9.3 one week ago and his doctor wanted to be rechecked. - Related Data Home Medications Medication Instructions Recorded Confirmed Furosemide [Lasix] 40 mg PO DAILY 05/17/17 09/19/17 Lisinopril [Zestril] 5 mg PO BID 05/17/17 09/19/17 Spironolactone [Aldactone] 25 mg PO DAILY 05/17/17 09/19/17 Tamsulosin HCl [Flomax] 0.4 mg PO HS 05/17/17 09/19/17 Atorvastatin [Lipitor] 80 mg PO HS 09/07/17 09/19/17 Omeprazole [PriLOSEC] 20 mg PO AC-BRKFST 09/07/17 09/19/17 Previous Rx's Medication Instructions Recorded Metoprolol Succinate (ER) [Toprol 50 mg PO DAILY #90 tab.er.24h 01/09/17 XL] Clopidogrel [Plavix] 75 mg PO DAILY #30 tablet 02/11/17 Albuterol Nebulized [Ventolin 2.5 mg INHALATION QID PRN #125 nebu 09/19/17 Nebulized] Azithromycin [Zithromax Z-pack] 250 mg PO DIRECTED #6 tab 09/19/17 guaiFENesin-Coden 100-10MG/5ML 10 ml PO Q6HR PRN #200 ml 09/19/17 [Robitussin AC] Allergies Allergy/AdvReac Type Severity Reaction Status Date / Time sacubitril [From Entresto] Allergy Swelling Verified 09/19/17 08:30 valsartan [From Entresto] Allergy Swelling Verified 09/19/17 08:30 Review of Systems ROS Statement: Those systems with pertinent positive or pertinent negative responses have been documented in the HPI. ROS Other: All systems not noted in ROS Statement are negative. Constitutional: Denies: fever Eyes: Denies: eye pain ENT: Denies: ear pain Respiratory: Reports: cough, dyspnea (Only during coughing spells) Cardiovascular: Denies: chest pain Endocrine: Denies: fatigue Gastrointestinal: Denies: abdominal pain Genitourinary: Denies: dysuria Musculoskeletal: Denies: back pain Skin: Denies: rash Neurological: Denies: weakness Past Medical History Past Medical History: Pneumonia, Prostate Disorder Additional Past Medical History / Comment(s): Pneumonia with sepsis, cardiomyopathy, BPH, sinus problems at times. History of Any Multi-Drug Resistant Organisms: None Reported Past Surgical History: Appendectomy, Heart Catheterization With Stent, Hernia Repair Additional Past Surgical History / Comment(s): 02/10/17 PCI with stent, colonoscopy/polypectomy-benign, bilateral cataract removal, L inguinal hernia repair, vasectomy. Past Anesthesia/Blood Transfusion Reactions: No Reported Reaction Date of Last Stent Placement:: 02/10/17 Past Psychological History: No Psychological Hx Reported Smoking Status: Former smoker Past Alcohol Use History: Rare Past Drug Use History: None Reported - Past Family History Father Family Medical History: COPD Additional Family Medical History / Comment(s): EMPHYZEMA due to WORK exposure. Father at the age of 81 yrs. Mother Family Medical History: Cancer General Exam Limitations: no limitations General appearance: alert, in no apparent distress Head exam: Present: atraumatic Eye exam: Present: normal appearance, PERRL ENT exam: Present: normal oropharynx Neck exam: Present: normal inspection Respiratory exam: Present: rhonchi Cardiovascular Exam: Present: irregular rhythm GI/Abdominal exam: Present: soft. Absent: tenderness Extremities exam: Present: normal inspection. Absent: pedal edema, calf tenderness Neurological exam: Present: alert Psychiatric exam: Present: normal affect, normal mood Skin exam: Present: normal color Course Vital Signs 09/19/17 09/19/17 09/19/17 07:38 08:15 09:15 Temperature 98.2 F Pulse Rate 89 89 86 Respiratory 16 20 20 Rate Blood Pressure 94/50 99/56 119/65 O2 Sat by Pulse 99 96 99 Oximetry EKG Findings - EKG Comments: EKG Findings:: A. fib with rate of 89. QRS 82. QT 382. QTC 464. Left axis. Low QRS. Lateral T wave inversion. Inferior T wave inversion. Medical Decision Making - Medical Decision Making also had similar symptoms and was seen. Patient and are updated on results and need for follow-up. - Lab Data Result diagrams: 09/19/17 07:55 09/19/17 07:55 Lab Results 09/19/17 09/19/17 09/19/17 Range/Units 07:55 07:55 07:55 WBC 7.9 (3.8-10.6) k/uL RBC 3.15 L (4.30-5.90) m/uL Hgb 9.7 L (13.0-17.5) gm/dL Hct 30.4 L (39.0-53.0) % MCV 96.8 (80.0-100.0) fL MCH 30.7 (25.0-35.0) pg MCHC 31.8 (31.0-37.0) g/dL RDW 16.4 H (11.5-15.5) % Plt Count 264 (150-450) k/uL Neutrophils % 69 % Lymphocytes % 21 % Monocytes % 6 % Eosinophils % 3 % Basophils % 0 % Neutrophils # 5.5 (1.3-7.7) k/uL Lymphocytes # 1.6 (1.0-4.8) k/uL Monocytes # 0.5 (0-1.0) k/uL Eosinophils # 0.2 (0-0.7) k/uL Basophils # 0.0 (0-0.2) k/uL Anisocytosis Slight Macrocytosis Slight PT 10.4 (9.0-12.0) sec INR 1.0 (<1.2) APTT 23.4 (22.0-30.0) sec D-Dimer 0.38 (<0.60) mg/L FEU Sodium (137-145) mmol/L Potassium (3.5-5.1) mmol/L Chloride (98-107) mmol/L Carbon Dioxide (22-30) mmol/L Anion Gap mmol/L BUN (9-20) mg/dL Creatinine (0.66-1.25) mg/dL Est GFR (MDRD) Af Amer (>60 ml/min/1.73 sqM) Est GFR (MDRD) Non-Af (>60 ml/min/1.73 sqM) Glucose (74-99) mg/dL Calcium (8.4-10.2) mg/dL Total Bilirubin (0.2-1.3) mg/dL AST (17-59) U/L ALT (21-72) U/L Alkaline Phosphatase (38-126) U/L NT-Pro-B Natriuret Pep pg/mL Total Protein (6.3-8.2) g/dL Albumin (3.5-5.0) g/dL Influenza Type A RNA Not Detected (Not Detectd) Influenza Type B (PCR) Not Detected (Not Detectd) 09/19/17 09/19/17 Range/Units 07:55 07:55 WBC (3.8-10.6) k/uL RBC (4.30-5.90) m/uL Hgb (13.0-17.5) gm/dL Hct (39.0-53.0) % MCV (80.0-100.0) fL MCH (25.0-35.0) pg MCHC (31.0-37.0) g/dL RDW (11.5-15.5) % Plt Count (150-450) k/uL Neutrophils % % Lymphocytes % % Monocytes % % Eosinophils % % Basophils % % Neutrophils # (1.3-7.7) k/uL Lymphocytes # (1.0-4.8) k/uL Monocytes # (0-1.0) k/uL Eosinophils # (0-0.7) k/uL Basophils # (0-0.2) k/uL Anisocytosis Macrocytosis PT (9.0-12.0) sec INR (<1.2) APTT (22.0-30.0) sec D-Dimer (<0.60) mg/L FEU Sodium 135 L (137-145) mmol/L Potassium 4.2 (3.5-5.1) mmol/L Chloride 105 (98-107) mmol/L Carbon Dioxide 22 (22-30) mmol/L Anion Gap 8 mmol/L BUN 16 (9-20) mg/dL Creatinine 0.98 (0.66-1.25) mg/dL Est GFR (MDRD) Af Amer >60 (>60 ml/min/1.73 sqM) Est GFR (MDRD) Non-Af >60 (>60 ml/min/1.73 sqM) Glucose 144 H (74-99) mg/dL Calcium 9.1 (8.4-10.2) mg/dL Total Bilirubin 0.2 (0.2-1.3) mg/dL AST 19 (17-59) U/L ALT 43 (21-72) U/L Alkaline Phosphatase 70 (38-126) U/L NT-Pro-B Natriuret Pep 1370 pg/mL Total Protein 5.6 L (6.3-8.2) g/dL Albumin 3.3 L (3.5-5.0) g/dL Influenza Type A RNA (Not Detectd) Influenza Type B (PCR) (Not Detectd) - Radiology Data Radiology results: image reviewed (Chest x-ray shows no acute process.) Disposition Clinical Impression: Acute bronchitis Disposition: HOME SELF-CARE Condition: Stable Instructions: Acute Bronchitis (ED) Additional Instructions: Please follow-up with primary care physician in the next day or 2 for recheck. Return for difficulty breathing, fevers, pain, worsening symptoms or other concerns. Prescriptions: Albuterol Nebulized [Ventolin Nebulized] 2.5 mg INHALATION QID PRN #125 nebu PRN Reason: Dyspnea Azithromycin [Zithromax Z-pack] 250 mg PO DIRECTED #6 tab guaiFENesin-Coden 100-10MG/5ML [Robitussin AC] 10 ml PO Q6HR PRN #200 ml PRN Reason: Cough Referrals: Waqar Rai Jr, [Primary Care Provider] - 1-2 days Time of Disposition: 09:33
[2017-09-19 08:10] LABS: Anisocytosis Slight; Basophils % (A) 0 %; CH 31.3; CHCM 32.6; Eosinophils # (A) 0.2 k/uL (0-0.7); Eosinophils % (A) 3 %; HCT 30.4 % (39.0-53.0); HGB 9.7 gm/dL (13.0-17.5); Luc # (Auto) 0.08; Luc % (Auto) 1; Lymphocytes # (A) 1.6 k/uL (1.0-4.8); Lymphocytes % (A) 21 %; MCH 30.7 pg (25.0-35.0); MCHC 31.8 g/dL (31.0-37.0); MCV 96.8 fL (80.0-100.0); Macrocytosis Slight; Mean Platelet Volume 8.3; Monocytes # (A) 0.5 k/uL (0-1.0); Monocytes % (A) 6 %; Neutrophils # (A) 5.5 k/uL (1.3-7.7); Neutrophils % (A) 69 %; RBC 3.15 m/uL (4.30-5.90); RDW 16.4 % (11.5-15.5); WBC 7.9 k/uL (3.8-10.6); WBC (Perox) 7.84
--- NOTE | 2017-09-19 08:16 | XR ---
EXAMINATION TYPE: XR chest 2V DATE OF EXAM: 09/19/2017 COMPARISON: 01/05/2017 HISTORY: Shortness of breath TECHNIQUE: Frontal and lateral views of the chest are obtained. FINDINGS: Scattered senescent parenchymal changes noted. Hyperinflation compatible with COPD. No evidence for infiltrate. No evidence for atelectasis. Heart size is stable. Mediastinal structures are stable and grossly unremarkable. No evidence for hilar prominence. Degenerative changes dorsal spine. IMPRESSION: 1. No evidence for acute pulmonary disease.
[2017-09-19 08:23] LABS: Partial Thromboplastin Time 23.4 sec (22.0-30.0); Prothrombin Time 10.4 sec (9.0-12.0)
[2017-09-19 08:31] LABS: ALT 43 U/L (21-72); AST 19 U/L (17-59); Alkaline Phosphatase 70 U/L (38-126); Anion Gap 8 mmol/L; Blood Urea Nitrogen 16 mg/dL (9-20); Calcium 9.1 mg/dL (8.4-10.2); Carbon Dioxide 22 mmol/L (22-30); Chloride 105 mmol/L (98-107); Glucose 144 mg/dL (74-99); Non-African American GFR(MDRD) >60 (>60 ml/min/1.73 sqM); Potassium 4.2 mmol/L (3.5-5.1); Sodium 135 mmol/L (137-145); Total Bilirubin 0.2 mg/dL (0.2-1.3); Total Protein 5.6 g/dL (6.3-8.2)
[2017-09-19 10:08] VITALS: BP 124/64; PULSE 76; RESP 18; TEMP 98.3
== END 2017-09-19 09:45 | disposition home or self-care (01) ==
LOC: EC 07:34
DX: J20.9 Acute bronchitis, unspecified (principal); Z87.01 Personal history of pneumonia (recurrent); Z86.19 Personal history of other infectious and parasitic diseases; Z79.899 Other long term (current) drug therapy; Z87.891 Personal history of nicotine dependence; Z88.8 Allergy status to other drugs, medicaments and biological substances
CPT/HCPCS: 36415; 71020; 80053; 83880; 85025; 85379; 85610; 85730; 87502; 93005; 99284

== ENCOUNTER → 2017-10-07 | Outpatient (CLI) | payer MEDICARE ==
[2017-10-07 11:16] LABS: CH 31.8; CHCM 33.1; HCT 37.4 % (39.0-53.0); HDW 2.65; HGB 12.2 gm/dL (13.0-17.5); MCH 31.6 pg (25.0-35.0); MCHC 32.7 g/dL (31.0-37.0); MCV 96.6 fL (80.0-100.0); Mean Platelet Volume 7.9; RBC 3.87 m/uL (4.30-5.90); RDW 14.2 % (11.5-15.5); WBC 7.8 k/uL (3.8-10.6)
[2017-10-07 11:28] LABS: Anion Gap 7 mmol/L; Blood Urea Nitrogen 16 mg/dL (9-20); Carbon Dioxide 25 mmol/L (22-30); Chloride 106 mmol/L (98-107); Non-African American GFR(MDRD) >60 (>60 ml/min/1.73 sqM); Potassium 4.4 mmol/L (3.5-5.1); Sodium 138 mmol/L (137-145)
== END | disposition home or self-care (01) ==
LOC: LABPAT 10:15
PROVIDERS: ATTEND Internal Medicine Cardiovascular Disease
DX: Z01.812 Encounter for preprocedural laboratory examination (principal); I48.3 Typical atrial flutter
CPT/HCPCS: 80051; 82565; 84520; 85027

== ENCOUNTER 2017-11-09 09:27 | Day surgery (SDC) | payer MEDICARE ==
[~2017-11-09 09:27] MED LIST changes: -ALPRAZolam 0.25 MG TAB PO PRN; -ALPRAZolam 0.5 MG TAB PO PRN; -ASPIRIN 325 MG TAB PO STA; -ATORVASTATIN 80 MG TAB PO STA; -NITROGLYCERIN SL TABS 0.4 MG TAB SUBLINGUAL PRN; +SODIUM CHLORIDE 0.9% 1,000 ML IV SCH; -SODIUM CHLORIDE 0.9% 1,000 ML in EMPTY BAG 1 BAG IV ONE; +ceFAZolin 1,000 MG in SODIUM CHLORIDE 0.9% IRRIGATIO 250 ML IRRIGATION ONE; +ceFAZolin IN SWFI 2 GM/20 ML SYRINGE IVP ONE
[2017-11-09 10:24] LABS: INR 2.5 (<1.2); Prothrombin Time 22.5 sec (9.0-12.0)
[2017-11-09] MEDS ORDERED: fentaNYL (PF) 50 MCG/ML 2 ML AMP ONE (10:50)
[2017-11-09] MEDS ORDERED: PROPOFOL 10 MG/ML 20 ML VIAL IV ONE (10:50)
[2017-11-09] MEDS ORDERED: MIDAZOLAM 2 MG/2 ML VIAL ONE (10:50)
[2017-11-09] MEDS ORDERED: IOHEXOL 300 MG/ML 50 ML BOTTLE IV ONE (11:03)
[2017-11-09] MEDS: ceFAZolin IN SWFI 2 GM/20 ML SYRINGE IVP ONE ×2 (11:35→11:37)
[2017-11-09] MEDS ORDERED: LIDOCAINE 1% INJ 10MG/ML (20 ML MDV) SQ ONE ×2 (11:44→11:49)
[2017-11-09] MEDS ORDERED: ACETAMINOPHEN IV (For NPO) 1,000 MG in EMPTY BAG 1 BAG IVPB ONE (12:30)
[2017-11-09] MEDS ORDERED: ACETAMINOPHEN TAB 325 MG TAB PO PRN (12:30)
[2017-11-09] MEDS ORDERED: HYDROcodone/APAP 5-325MG 1 EACH TAB PO PRN (12:30)
--- NOTE | 2017-11-09 13:25 | CE ---
CARDIAC ELECTROPHYSIOLOGY REPORT Mr. Magana is a 76-year-old male patient, who underwent a single-chamber ICD implantation today for primary prevention of sudden cardiac . He has congestive heart failure class 2 to 3, predominantly nonischemic cardiomyopathy, with single-vessel coronary artery disease, status post stenting greater than 4 months back, history of GI bleeding on Eliquis, hence aspirin is on hold. Plavix has been discontinued. He is on warfarin for stroke prevention. The patient has paroxysmal A fib. He has a chronically reduced LV systolic function of 25% to 30%, which is not improved after coronary stenting indicating predominantly a nonischemic etiology that was present prior to this detection of coronary artery disease Patient was brought to the EP lab in a fasting state. Written informed consent was obtained prior to the procedure. The left shoulder area was prepped and draped as per protocol and 1% lidocaine was used for local anesthesia. A 4 cm incision was made parallel to the deltopectoral groove, about 1.5 cm medial to it. The incision was carried down to the pectoralis muscle. A subfascial pocket was made. Hemostasis was assured. The left axillary vein was accessed with a single point under fluoroscopy and via appropriately-sized introducer sheath, the lead was positioned in the right heart. The ICD lead was a single coil [employer] SG Active Fix single coil lead, 59 cm in length and model #0292, serial #[id number]. This was screwed in the lower end of RV apex and then secured to the underlying pectoralis muscle. The R waves were about 5 mV, pacing threshold 1 V at 0.4 milliseconds. Pacing impedance of 653 ohms and via the device shock impedance 69 ohms. The device was then implanted in [employer] [facility] EL ICD BF4 VR, model #D140, serial #[id number]. The lead and the generator were then placed in the subfascial pocket. The wound was closed in 3 layers and dressed per protocol. DFT TESTING UNDER ANESTHESIA: Shock and T-wave protocol was used to induce ventricular fibrillation. This was adequately and appropriately detected at least sensitivity without any drop pulse and an 11 joule shock successfully defibrillated the patient to sinus rhythm (type 2 conversion). The device was then programmed according to the [facility] programming. First cardioversion at 21 joules appropriate antitachycardia pacing cardioversion defibrillation programmed. RESULTS: Successful single-chamber ICD implantation for primary prevention of sudden cardiac . MMODL / IJN: [id number] /
[2017-11-09] MEDS: LACTATED RINGERS 1,000 ML IV SCH (13:59)
[2017-11-09] MEDS: SODIUM CHLORIDE 0.9% 1,000 ML IV SCH (13:59)
[2017-11-09] MEDS: ceFAZolin IN SWFI 2 GM/20 ML SYRINGE IVP SCH (18:23)
[2017-11-09] MEDS: LISINOPRIL 5 MG TAB PO SCH (19:58)
[2017-11-09] MEDS ORDERED: TAMSULOSIN 0.4 MG CAP.ER.24H PO SCH (21:00)
[2017-11-09 23:23] VITALS: BMI 30.2
[2017-11-10] MEDS: ceFAZolin IN SWFI 2 GM/20 ML SYRINGE IVP SCH ×3 (00:16→11:22)
[2017-11-10] MEDS: LACTATED RINGERS 1,000 ML IV SCH (03:04)
[2017-11-10] MEDS: SODIUM CHLORIDE 0.9% 1,000 ML IV SCH (03:04)
--- NOTE | 2017-11-10 08:00 | XR ---
EXAMINATION TYPE: XR chest 2V DATE OF EXAM: 11/10/2017 COMPARISON: 09/19/2017 HISTORY: Post pacemaker lead placement tract. TECHNIQUE: Frontal and lateral views of the chest are obtained. FINDINGS: There is a single lead left-sided ventricular lead cardiac device with no postprocedural p neumothorax noted. No pulmonary vascular congestion. Cardiac silhouette is upper limits of normal. Mi ld multilevel degenerative changes of the thoracic spine are noted. No focal consolidation or pleural effusion is seen. IMPRESSION: Interval placement of a single ventricular lead left-sided cardiac device with no postpr ocedural pneumothorax or pulmonary vascular congestion. No acute cardiopulmonary process.
[2017-11-10] MEDS: LISINOPRIL 5 MG TAB PO SCH (08:32)
[2017-11-10] MEDS ORDERED: FUROSEMIDE 20 MG TAB PO SCH (09:00)
[2017-11-10] MEDS ORDERED: METOPROLOL SUCCINATE (ER) 50 MG TAB.ER.24H PO SCH (09:00)
[2017-11-10] MEDS ORDERED: ATORVASTATIN 80 MG TAB PO SCH (09:00)
[2017-11-10] MEDS ORDERED: SPIRONOLACTONE 25 MG TAB PO SCH (09:00)
--- NOTE | 2017-11-10 09:48 | P.DS ---
Providers Attending physician: Andrew Franklin Primary care physician: Stated None Hospital Course: Patient underwent single-chamber ICD implantation for primary prevention of sudden cardiac Patient is doing well postprocedure and no chest discomfort. Mild soreness over the ICD site. No dizziness lightheadedness he has been ambulating in the hallways On examination no soakage hematoma or swelling over the ICD site. Breath sounds are clear. No rhonchi no crackles Heart sounds S1 and S2 are normal no murmurs no gallops Abdomen is soft nontender Extended is warm no edema Impression Predominantly nonischemic cardiopathy with single vessel coronary artery disease status post stenting greater than 4 months back Congestive heart failure class 2-3 PVCs Chronic LV systolic dysfunction, left ventricular ejection fraction 25-30% chronically Atrial fibrillation, paroxysmal Elevated PATRIA VASC score greater than 2 Reason GI bleeding on ELIQUIS, ELIQUIS discontinued , currently on Coumadin. Plavix was discontinued by Dr. Burgess and aspirin is currently on hold on account of recent GI bleeding Aspirin is on hold secondary to GI bleeding Plan ICD clinic follow-up in [address] Burgess in 4 weeks for consideration for reinitiation of aspirin once the GI tract heals and there is no further bleeding Plan - Discharge Summary Discharge Rx Participant: No New Discharge Prescriptions: Continue Metoprolol Succinate (ER) [Toprol XL] 50 mg PO DAILY #90 tab.er.24h Tamsulosin HCl [Flomax] 0.4 mg PO HS Lisinopril [Zestril] 5 mg PO BID Furosemide [Lasix] 20 mg PO DAILY Spironolactone [Aldactone] 25 mg PO DAILY Atorvastatin [Lipitor] 80 mg PO DAILY Warfarin [Coumadin] 5 mg PO DAILY Warfarin [Coumadin] 7.5 mg PO Q7DAYS Discharge Medication List Metoprolol Succinate (ER) [Toprol XL] 50 mg PO DAILY #90 tab.er.24h 01/09/17 [Rx ] Furosemide [Lasix] 20 mg PO DAILY 05/17/17 [History] Lisinopril [Zestril] 5 mg PO BID 05/17/17 [History] Spironolactone [Aldactone] 25 mg PO DAILY 05/17/17 [History] Tamsulosin HCl [Flomax] 0.4 mg PO HS 05/17/17 [History] Atorvastatin [Lipitor] 80 mg PO DAILY 09/07/17 [History] Warfarin [Coumadin] 5 mg PO DAILY 10/19/17 [History] Warfarin [Coumadin] 7.5 mg PO Q7DAYS 11/09/17 [History] Follow up Appointment(s)/Referral(s): Heather Burgess MD [STAFF PHYSICIAN] - 4 Weeks Activity/Diet/Wound Care/Special Instructions: PATIENT EDUCATION MATERIAL Instructions following a heart rhythm device implant. 1. Keep dressing DRY for 5 DAYS. You may cover the area with Saran or Cling Wrap, prior to a shower. 2. The dressing will be removed in the Device [facility] @ [facility]. Absorbable sutures were used to close the wound. 3. Avoid raising the arm above the shoulder level. [4 week restriction] 4. Avoid arm movements, like backscratching, rubbing the head, or pulling on a cord. (4 weeks restriction) 5. Gentle range of motion movements of the shoulder, closest to the incision should be performed to avoid a frozen shoulder. (Pendulum exercises of the shoulder) 6. The opposite arm may be used freely. 7. Avoid driving for 7 days. 8. Avoid activities such as golfing, swimming, weed whacking, lifting more than 10 pounds weight, bowling, gymnastics and weight training/lifting. (6 weeks restriction) 9. Activities such as wood chopping with an axe, pull-ups in the gymnasium, power lifting, arc-welding, being close to home induction cooktops will always be a problem. 10. Arm sling is a mere reminder not to raise the arm above the head. However you do not need to keep the arm completely immobilized. Your free to move the arm and use it and for normal activities. In case of any problems, please call [facility], Jeremiah Stubbs, @ [phone], Attention: Device Clinic Patient should continue on his home medications without any changes. Continue Coumadin continue cardiomyopathy and heart failure medications as prescribed by Dr. Burgess Patient's aspirin and Plavix were discontinued on account of recent GI bleed by Dr. Burgess Discharge Disposition: HOME SELF-CARE
[2017-11-10 16:25] VITALS: BP 115/71; PULSE 74; TEMP 97.7
[2017-11-10 16:32] VITALS: RESP 16
== END 2017-11-10 13:11 | disposition home or self-care (01) ==
LOC: CATHEP 09:27 → 3OBS 12:25 → CATHEP 11-10 13:11
PROVIDERS: ATTEND Internal Medicine Clinical Cardiac Electrophysiology
DX: I48.0 Paroxysmal atrial fibrillation (principal); I48.4 Atypical atrial flutter; Z79.01 Long term (current) use of anticoagulants; I42.8 Other cardiomyopathies; Z00.6 Encounter for examination for normal comparison and control in clinical research program; I49.3 Ventricular premature depolarization; I50.9 Heart failure, unspecified; I25.10 Atherosclerotic heart disease of native coronary artery without angina pectoris; Z87.891 Personal history of nicotine dependence; Z95.5 Presence of coronary angioplasty implant and graft; J44.9 Chronic obstructive pulmonary disease, unspecified; Z79.02 Long term (current) use of antithrombotics/antiplatelets; Z79.899 Other long term (current) drug therapy
CPT/HCPCS: 93641; 33249; 85610; 71046; C1895; C1722; J2250; J0690 ×2; J2001; J3010; J2704; Q9967

== ENCOUNTER 2017-11-19 12:10 | Emergency (ER) | payer MEDICARE ==
[2017-11-19] MEDS ORDERED: IPRATROPIUM-ALBUTEROL 3 ML NEB INHALATION STA (12:39)
--- NOTE | 2017-11-19 12:41 | ED ---
General Adult HPI - General Chief complaint: Upper Respiratory Infection Stated complaint: Cough/Congestion Time Seen by Provider: 11/19/17 12:10 Source: patient, family, RN notes reviewed Mode of arrival: ambulatory Limitations: no limitations - History of Present Illness Initial comments: This is a 76-year-old male presents emergency department after having had a defibrillator placed on Tuesday. Patient also is on Coumadin. Patient comes in today because he's been coughing for the last 2 days and it has been keep her mouth denies coughing so much. Patient states he coughs so hard he is having some abdominal pain when he coughs. Patient denies any fever or chills. Patient denies any sputum production. Patient denies any chest pain difficulty breathing or shortness of breath. Patient states he does find it difficult to get good breath when he is coughing but other than that he is not short of breath. Patient denies any leg pain or Swelling. Patient denies any nausea vomiting diarrhea. - Related Data Home Medications Medication Instructions Recorded Confirmed Lisinopril [Zestril] 5 mg PO BID 05/17/17 11/19/17 Tamsulosin HCl [Flomax] 0.4 mg PO HS 05/17/17 11/19/17 Atorvastatin [Lipitor] 80 mg PO DAILY 09/07/17 11/19/17 Warfarin [Coumadin] 5 mg PO DAILY 10/19/17 11/19/17 Warfarin [Coumadin] 7.5 mg PO Q7DAYS 11/09/17 11/19/17 Furosemide [Lasix] 20 mg PO DAILY 11/19/17 11/19/17 Omeprazole [PriLOSEC] 20 mg PO AC-BRKFST 11/19/17 11/19/17 Previous Rx's Medication Instructions Recorded Metoprolol Succinate (ER) [Toprol 50 mg PO DAILY #90 tab.er.24h 01/09/17 XL] Azithromycin [Zithromax Tri-Miguelito] 500 mg PO DAILY #3 tab 11/19/17 Allergies Allergy/AdvReac Type Severity Reaction Status Date / Time sacubitril [From Entresto] Allergy Swelling Verified 11/19/17 12:57 valsartan [From Entresto] Allergy Swelling Verified 11/19/17 12:57 Review of Systems ROS Statement: Those systems with pertinent positive or pertinent negative responses have been documented in the HPI. ROS Other: All systems not noted in ROS Statement are negative. Past Medical History Past Medical History: COPD, Pneumonia, Prostate Disorder Additional Past Medical History / Comment(s): SEE DR PHAN H&P, Pneumonia with sepsis, sinus problems at times. History of Any Multi-Drug Resistant Organisms: None Reported Past Surgical History: Ablation, Appendectomy, Heart Catheterization With Stent , Hernia Repair Additional Past Surgical History / Comment(s): 02/10/17 PCI with stent, colonoscopy/polypectomy-benign, bilateral cataract removal, L inguinal hernia repair, vasectomy. Past Anesthesia/Blood Transfusion Reactions: No Reported Reaction Date of Last Stent Placement:: 02/10/17 Past Psychological History: No Psychological Hx Reported Smoking Status: Former smoker Past Alcohol Use History: Rare Past Drug Use History: None Reported - Past Family History Father Family Medical History: COPD Additional Family Medical History / Comment(s): Father at the age of 81 yrs. Mother Family Medical History: Cancer General Exam - General Exam Comments Initial Comments: GENERAL: Patient is well-developed and well-nourished. Patient is nontoxic and well- hydrated and is in mild distress. ENT: Neck is soft and supple. No significant lymphadenopathy is noted. Oropharynx is clear. Moist mucous membranes. Neck has full range of motion without eliciting any pain. EYES: The sclera were anicteric and conjunctiva were pink and moist. Extraocular movements were intact and pupils were equal round and reactive to light. Eyelids were unremarkable. PULMONARY: Patient has some crackles in the right base and he has some diminished breaths right side. CARDIOVASCULAR: There is a regular rate and rhythm without any murmurs gallops or rubs. ABDOMEN: Soft and nontender with normal bowel sounds. No palpable organomegaly was noted. There is no palpable pulsatile mass. SKIN: Skin is clear with no lesions or rashes and otherwise unremarkable. NEUROLOGIC: Patient is alert and oriented x3. Cranial nerves II through XII are grossly intact. Motor and sensory are also intact. Normal speech, volume and content. Symmetrical smile. MUSCULOSKELETAL: Normal extremities with adequate strength and full range of motion. No lower extremity swelling or edema. No calf tenderness. LYMPHATICS: No significant lymphadenopathy is noted PSYCHIATRIC: Normal psychiatric evaluation. Limitations: no limitations Course Vital Signs 11/19/17 11/19/17 11/19/17 12:29 13:18 13:27 Temperature 97 F L Pulse Rate 88 88 92 Respiratory 20 Rate Blood Pressure 113/75 O2 Sat by Pulse 96 Oximetry 11/19/17 14:14 Temperature 97.1 F L Pulse Rate 102 H Respiratory 24 Rate Blood Pressure 98/64 O2 Sat by Pulse 95 Oximetry Medical Decision Making - Medical Decision Making Chest x-ray showed no acute abnormality. Disposition Clinical Impression: Acute bronchitis Disposition: HOME SELF-CARE Condition: Good Instructions: Acute Bronchitis (ED) Prescriptions: Azithromycin [Zithromax Tri-Miguelito] 500 mg PO DAILY #3 tab Referrals: Waqar Rai Jr, DO [Primary Care Provider] - 1-2 days Time of Disposition: 13:41
--- NOTE | 2017-11-19 13:17 | XR ---
EXAMINATION TYPE: XR chest 2V DATE OF EXAM: 11/19/2017 HISTORY: Difficulty breathing . REFERENCE: Previous study dated 11/10/2017. FINDINGS: There is unipolar pacemaking device on the left. The lungs are overinflated but clear. Pleural spaces are clear. The heart is not enlarged. IMPRESSION: COPD.
[2017-11-19 14:15] VITALS: BP 98/64; PULSE 102; RESP 24; TEMP 97.1
[2017-11-19] MEDS: cefTRIAXone 250 MG VIAL IM STA ×2 (14:27→14:28)
== END 2017-11-19 14:37 | disposition home or self-care (01) ==
LOC: EC 12:10
DX: J20.9 Acute bronchitis, unspecified (principal); Z87.01 Personal history of pneumonia (recurrent); Z95.5 Presence of coronary angioplasty implant and graft; Z95.810 Presence of automatic (implantable) cardiac defibrillator; Z87.891 Personal history of nicotine dependence; Z83.6 Family history of other diseases of the respiratory system; Z88.8 Allergy status to other drugs, medicaments and biological substances; Z79.01 Long term (current) use of anticoagulants; Z79.899 Other long term (current) drug therapy
CPT/HCPCS: 94640; 71046; 99283; 96372; J0696

== ENCOUNTER → 2018-03-29 | Outpatient (CLI) | payer MEDICARE ==
[2018-03-29 11:02] LABS: INR 1.3 (<1.2); Prothrombin Time 12.2 sec (9.0-12.0)
== END | disposition home or self-care (01) ==
LOC: LABWHC1 10:19
PROVIDERS: ATTEND Dentist Oral and Maxillofacial Surgery
DX: D68.9 Coagulation defect, unspecified (principal)
CPT/HCPCS: 36415; 85610

== ENCOUNTER → 2019-10-16 | Outpatient (CLI) | payer MEDICARE ==
--- NOTE | 2019-10-17 10:45 | CT ---
EXAMINATION TYPE: CT lumbar spine wo con DATE OF EXAM: 10/16/2019 COMPARISON: None HISTORY: Low back pain radiating down left leg after pulling injury x1 year ago. CT DLP: [address] of the lumbar spine was performed. Bone and soft tissue window settings are submitted as well as coronal and sagittal reconstructions. L1-L2: Mild/moderate degenerative disc space narrowing. Mild posterior disc bulge. No evidence for he rniation or protrusion. No central stenosis or foraminal encroachment. Ventral spondylosis identified . L2-L3: Mild/moderate degenerative disc space narrowing. Mild posterior disc bulge. No evidence for he rniation or protrusion. No central stenosis or foraminal encroachment. Ventral spondylosis identified . L3-L4: Mild/moderate degenerative disc space narrowing. Mild posterior disc bulge. No evidence for he rniation or protrusion. No central stenosis or foraminal encroachment. Ventral spondylosis identified . L4-L5: Severe disc desiccation with vacuum disc. Grade 1 retrolisthesis L4 and L5 of 3 mm. Posterior disc bulge with the right lateral recess stenosis and bilateral foraminal encroachment. L5-S1: Normal disc space height. No disc herniation protrusion or central stenosis. No facet joint arthropathy. No evidence for foraminal encroachment. No paraspinal masses are identified. Lumbar segments are free if fracture. IMPRESSION: 1. Multilevel degenerative disc disease. 2. Grade 1 retrolisthesis L4 and L5 as noted. Right lateral recess stenosis at this level and bilater al foraminal encroachment.
== END | disposition home or self-care (01) ==
LOC: RADCTMAIN 16:52
PROVIDERS: ATTEND Physical Medicine & Rehabilitation
DX: M48.061 Spinal stenosis, lumbar region without neurogenic claudication (principal); M43.16 Spondylolisthesis, lumbar region; M51.16 Intervertebral disc disorders with radiculopathy, lumbar region; Z95.5 Presence of coronary angioplasty implant and graft; Z95.810 Presence of automatic (implantable) cardiac defibrillator; Z92.29 Personal history of other drug therapy
CPT/HCPCS: 72131

== ENCOUNTER → 2019-11-23 | Outpatient (CLI) | payer MEDICARE ==
--- NOTE | 2019-11-24 09:31 | XR ---
Left knee HISTORY: Left knee pain 3 views of the left knee Bone mineralization and alignment are maintained. There may be small suprapatellar joint effusion. Ma rginal spurring present at the patellofemoral joint. Possible mild joint space loss tricompartmentall y. There is no fracture or dislocation. IMPRESSION: Mild osteoarthritis. Knee MRI may be of benefit.
== END | disposition home or self-care (01) ==
LOC: RADXRMAIN 13:06
PROVIDERS: ATTEND Family Medicine
DX: M17.12 Unilateral primary osteoarthritis, left knee (principal)

== ENCOUNTER → 2019-12-07 | Outpatient (CLI) | payer MEDICARE ==
--- NOTE | 2019-12-07 15:13 | US ---
EXAMINATION TYPE: US venous doppler duplex LE LT DATE OF EXAM: 12/07/2019 2:32 PM COMPARISON: NONE CLINICAL HISTORY: M79.662 Pain left leg. SIDE PERFORMED: Left TECHNIQUE: The lower extremity deep venous system is examined utilizing real time linear array sonog kate with graded compression, doppler sonography and color-flow sonography. VESSELS IMAGED: External Iliac Vein (EIV) Common Femoral Vein Deep Femoral Vein Greater Saphenous Vein * Femoral Vein Popliteal Vein Small Saphenous Vein * Proximal Calf Veins (* superficial vessels) Grayscale, color doppler, spectral doppler imaging performed of the deep veins of the left lower extr emity. There is normal flow, compressibility, vascular waveforms. Left Leg: Negative for DVT IMPRESSION: No sonographic evidence of deep venous thrombosis within the visualized left lower extre mity.
== END | disposition home or self-care (01) ==
LOC: RADUSWWP 14:10
PROVIDERS: ATTEND Family Medicine
DX: M79.662 Pain in left lower leg (principal)

== ENCOUNTER → 2021-09-18 | Outpatient (CLI) | payer MEDICARE ==
[2021-09-18 15:05] LABS: Basophils # (A) 0.03 X 10*3/uL (0.00-0.10); Basophils % (A) 0.4 %; Eosinophils # (A) 0.28 X 10*3/uL (0.04-0.35); Eosinophils % (A) 3.7 %; HCT 40.2 % (39.6-50.0); HGB 13.1 g/dL (13.0-17.0); Lymphocytes # (A) 1.72 X 10*3/uL (0.90-5.00); Lymphocytes % (A) 22.9 %; MCH 30.4 pg (27.0-32.0); MCHC 32.6 g/dL (32.0-37.0); MCV 93.3 fL (80.0-97.0); Mean Platelet Volume 11.6 fL (9.5-12.2); Monocytes # (A) 0.74 X 10*3/uL (0.20-1.00); Monocytes % (A) 9.8 %; Neutrophils # (A) 4.72 X 10*3/uL (1.80-7.70); Neutrophils % (A) 62.8 %; Platelet Count 181 X 10*3/uL (140-440); RBC 4.31 X 10*6/uL (4.40-5.60); RDW 13.5 % (11.5-14.5); WBC 7.52 X 10*3/uL (4.50-10.00)
[2021-09-18 16:36] LABS: ALT 23 U/L (10-49); AST 19 U/L (14-35); African American GFR (CKD) 94.5 (60.0-200.0); Albumin 4.2 g/dL (3.8-4.9); Alkaline Phosphatase 99 U/L (41-126); Blood Urea Nitrogen 14.4 mg/dL (9.0-27.0); Calcium 9.2 mg/dL (8.7-10.3); Carbon Dioxide 23.9 mmol/L (21.6-31.8); Chloride 105 mmol/L (96-109); Chol/HDL Ratio 2.55 Ratio; Glucose 111 mg/dL (70-110); LDL Cholesterol,Calculated 56.5 mg/dL (0.0-131.0); Non-African American GFR(CKD) 81.5 (60.0-200.0); Potassium 4.1 mmol/L (3.5-5.5); Sodium 140 mmol/L (135-145); Total Protein 6.2 g/dL (6.2-8.2)
== END | disposition home or self-care (01) ==
LOC: LABWHC1 07:48
PROVIDERS: ATTEND Nurse Practitioner Adult Health
DX: Z00.00 Encounter for general adult medical examination without abnormal findings (principal); Z12.5 Encounter for screening for malignant neoplasm of prostate; Z12.11 Encounter for screening for malignant neoplasm of colon; I10 Essential (primary) hypertension; I25.5 Ischemic cardiomyopathy; N40.1 Benign prostatic hyperplasia with lower urinary tract symptoms; E78.2 Mixed hyperlipidemia
CPT/HCPCS: 80061; 80053; 85025; 83036; 36415; G0103

== ENCOUNTER 2022-04-19 10:28 | Emergency (ER) | payer MEDICARE ==
--- NOTE | 2022-04-19 12:12 | ED ---
Male Urogenital HPI - General Chief complaint: Urogenital Stated complaint: trouble urinating Time Seen by Provider: 04/19/22 11:34 Source: patient, RN notes reviewed Mode of arrival: ambulatory Limitations: no limitations - History of Present Illness Initial comments: 72-year-old male presents emergency Department with chief complaint of unable to urinate. Patient states he does have known prostate issues in which she takes Flomax. Patient is had some issues in the past where he usually gets it did resolve but states has not urinated since last night. He states his lower abdominal pressure and sensation that he has to urinate. No recent urinary tract infections no prior tract infections no fevers or chills no flank pain. - Related Data Home Medications Medication Instructions Recorded Confirmed Tamsulosin HCl [Flomax] 0.4 mg PO HS 05/17/17 11/19/17 lisinopriL [Zestril] 5 mg PO BID 05/17/17 11/19/17 Atorvastatin [Lipitor] 80 mg PO DAILY 09/07/17 11/19/17 Warfarin [Coumadin] 5 mg PO DAILY 10/19/17 11/19/17 Warfarin [Coumadin] 7.5 mg PO Q7DAYS 11/09/17 11/19/17 Furosemide [Lasix] 20 mg PO DAILY 11/19/17 11/19/17 Omeprazole [PriLOSEC] 20 mg PO AC-BRKFST 11/19/17 11/19/17 Previous Rx's Medication Instructions Recorded Metoprolol Succinate (ER) [Toprol 50 mg PO DAILY #90 tab.er.24h 01/09/17 XL] Azithromycin [Zithromax Tri-Miguelito] 500 mg PO DAILY #3 tab 11/19/17 Allergies Allergy/AdvReac Type Severity Reaction Status Date / Time sacubitril [From Entresto] Allergy Swelling Verified 11/19/17 12:57 valsartan [From Entresto] Allergy Swelling Verified 11/19/17 12:57 Review of Systems ROS Statement: Those systems with pertinent positive or pertinent negative responses have been documented in the HPI. ROS Other: All systems not noted in ROS Statement are negative. Past Medical History Past Medical History: COPD, Pneumonia, Prostate Disorder Additional Past Medical History / Comment(s): SEE DR PHAN H&P, Pneumonia with sepsis, sinus problems at times. History of Any Multi-Drug Resistant Organisms: None Reported Past Surgical History: Ablation, Appendectomy, Heart Catheterization With Stent, Hernia Repair Additional Past Surgical History / Comment(s): 02/10/17 PCI with stent, colonoscopy/polypectomy-benign, bilateral cataract removal, L inguinal hernia repair, vasectomy. Past Anesthesia/Blood Transfusion Reactions: No Reported Reaction Date of Last Stent Placement:: 02/10/17 Past Psychological History: No Psychological Hx Reported Past Alcohol Use History: Rare Past Drug Use History: None Reported - Past Family History Father Family Medical History: COPD Additional Family Medical History / Comment(s): Father at the age of 81 yrs. Mother Family Medical History: Cancer General Exam Limitations: no limitations General appearance: alert, in no apparent distress Head exam: Present: atraumatic, normocephalic, normal inspection Eye exam: Present: normal appearance, PERRL, EOMI. Absent: scleral icterus, conjunctival injection, periorbital swelling Neck exam: Present: normal inspection, full ROM. Absent: tenderness, meningismus, lymphadenopathy Respiratory exam: Present: normal lung sounds bilaterally. Absent: respiratory distress, wheezes, rales, rhonchi, stridor Cardiovascular Exam: Present: regular rate, normal rhythm, normal heart sounds. Absent: systolic murmur, diastolic murmur, rubs, gallop, clicks GI/Abdominal exam: Present: soft, distended, tenderness, normal bowel sounds. Absent: guarding, rebound, rigid Back exam: Absent: CVA tenderness (R), CVA tenderness (L) Neurological exam: Present: alert Course Vital Signs 04/19/22 11:20 Temperature 98.4 F Pulse Rate 67 Respiratory 18 Rate Blood Pressure 129/72 O2 Sat by Pulse 96 Oximetry Medical Decision Making - Medical Decision Making 78-year-old presented for urinary retention. Patient did have Castellanos catheter placed a large amount urine was removed. Patient states he feels greatly improved there is no evidence of urinary tract infection he'll continue on Flomax and will follow-up with urology. - Lab Data Lab Results 04/19/22 Range/Units 12:07 Urine Color Light Yellow Urine Appearance Clear (Clear) Urine pH 6.5 (5.0-8.0) Ur Specific [place] 1.010 (1.001-1.035) Urine Protein Negative (Negative) Urine Glucose (UA) Negative (Negative) Urine Ketones Negative (Negative) Urine Blood Small H (Negative) Urine Nitrite Negative (Negative) Urine Bilirubin Negative (Negative) Urine Urobilinogen <2.0 (<2.0) mg/dL Ur Leukocyte Esterase Negative (Negative) Urine RBC 8 H (0-5) /hpf Urine WBC 1 (0-5) /hpf Urine Mucus Rare H (None) /hpf Disposition Clinical Impression: Urinary retention due to benign prostatic hyperplasia Disposition: HOME SELF-CARE Condition: Stable Instructions (If sedation given, give patient instructions): Urinary Retention in Men (ED) Additional Instructions: Please return to the Emergency Department if symptoms worsen or any other concerns. Is patient prescribed a controlled substance at d/c from ED?: No Referrals: Waqar Rai Jr, DO [Primary Care Provider] - 1-2 days Sen Maya MD [STAFF PHYSICIAN] - 1-2 days Time of Disposition: 13:33
[2022-04-19 12:49] LABS: Appearance,Urine Clear (Clear); Bilirubin,Urine Negative (Negative); Blood,Urine Small (Negative); Color,Urine Light Yellow; Glucose,Urine (UA) Negative (Negative); Ketones,Urine Negative (Negative); Leukocyte Esterase,Urine Negative (Negative); Mucus,Urine Rare /hpf; Nitrite,Urine Negative (Negative); PH, Urine 6.5 (5.0-8.0); Protein,Urine Negative (Negative); RBC,Urine 8 /hpf (0-5); Urobilinogen,Urine <2.0 mg/dL (<2.0); WBC,Urine 1 /hpf (0-5)
[2022-04-19 13:46] VITALS: BP 126/78; PULSE 68; RESP 20; TEMP 98.3
== END 2022-04-19 13:44 | disposition home or self-care (01) ==
LOC: EC 10:28
DX: N40.0 Benign prostatic hyperplasia without lower urinary tract symptoms (principal); R33.9 Retention of urine, unspecified; J44.9 Chronic obstructive pulmonary disease, unspecified; Z79.01 Long term (current) use of anticoagulants; Z79.899 Other long term (current) drug therapy
CPT/HCPCS: 51702; 81001; 99283

== ENCOUNTER 2022-04-21 13:45 | Emergency (ER) | payer MEDICARE ==
[2022-04-21 14:38] VITALS: BP 104/73; PULSE 75; RESP 18; TEMP 98.5
--- NOTE | 2022-04-21 15:00 | ED ---
Male Urogenital HPI - General Chief complaint: Urogenital Stated complaint: Cath not working Time Seen by Provider: 04/21/22 14:42 Source: patient, family, RN notes reviewed Mode of arrival: ambulatory Limitations: no limitations - History of Present Illness Initial comments: This is a 81-year-old male who presents to the emergency department for problems with his urinary catheter. Patient was in the emergency department 2 days ago for urinary retention and was sent home with a catheter in place. His catheter had not been draining this morning and when he tried to urinate, he said that the catheter was leaking around the urethra. Denies any pain, pressure in the abdomen, or feeling like he needs to urinate. He did try squeezing the catheter tube this morning and a blood clot came out. After the blood clot came out, he did note that it started to drain a small amount. When in the emergency department, he states that the catheter is continuing to drain a little bit. He has an appointment with urology scheduled on 04/26. Denies any fevers, chills, sore throat, cough, dyspnea, chest pain, palpitations, abdominal pain, nausea, vomiting, diarrhea, back pain, or headaches. MD Complaint: other (Castellanos catheter issues) - Related Data Home Medications Medication Instructions Recorded Confirmed Tamsulosin HCl [Flomax] 0.4 mg PO HS 05/17/17 04/21/22 lisinopriL [Zestril] 5 mg PO BID 05/17/17 04/21/22 Atorvastatin [Lipitor] 80 mg PO DAILY 09/07/17 04/21/22 Warfarin [Coumadin] 5 mg PO [id number]@209910/19/17 04/21/22 Warfarin [Coumadin] 7.5 mg PO MO@2100 11/09/17 04/21/22 Furosemide [Lasix] 20 mg PO DAILY 04/21/22 04/21/22 Metoprolol Succinate (ER) [Toprol 75 mg PO DAILY 04/21/22 04/21/22 XL] Omeprazole Magnesium [PriLOSEC OTC] 20 mg PO DAILY 04/21/22 04/21/22 Allergies Allergy/AdvReac Type Severity Reaction Status Date / Time sacubitril [From Entresto] Allergy Swelling Verified 04/21/22 15:55 valsartan [From Entresto] Allergy Swelling Verified 04/21/22 15:55 Review of Systems ROS Statement: Those systems with pertinent positive or pertinent negative responses have been documented in the HPI. ROS Other: All systems not noted in ROS Statement are negative. Past Medical History Past Medical History: COPD, Pneumonia, Prostate Disorder Additional Past Medical History / Comment(s): SEE DR PHAN H&P, Pneumonia with sepsis, sinus problems at times. History of Any Multi-Drug Resistant Organisms: None Reported Past Surgical History: Ablation, Appendectomy, Heart Catheterization With Stent, Hernia Repair Additional Past Surgical History / Comment(s): 02/10/17 PCI with stent, colonoscopy/polypectomy-benign, bilateral cataract removal, L inguinal hernia repair, vasectomy. Past Anesthesia/Blood Transfusion Reactions: No Reported Reaction Date of Last Stent Placement:: 02/10/17 Past Psychological History: No Psychological Hx Reported Smoking Status: Never smoker Past Alcohol Use History: Rare Past Drug Use History: None Reported - Past Family History Father Family Medical History: COPD Additional Family Medical History / Comment(s): Father at the age of 81 yrs. Mother Family Medical History: Cancer General Exam Limitations: no limitations General appearance: alert, in no apparent distress Head exam: Present: atraumatic, normocephalic, normal inspection Respiratory exam: Present: normal lung sounds bilaterally. Absent: respiratory distress, wheezes, rales, rhonchi, stridor Cardiovascular Exam: Present: regular rate, normal rhythm, normal heart sounds. Absent: systolic murmur, diastolic murmur, rubs, gallop, clicks GI/Abdominal exam: Present: soft, normal bowel sounds. Absent: distended, tenderness, guarding, rebound, rigid Neurological exam: Present: alert, oriented X3, CN II-XII intact Psychiatric exam: Present: normal affect, normal mood Skin exam: Present: warm, dry, intact, normal color. Absent: rash Course Vital Signs 04/21/22 14:34 Temperature 98.5 F Pulse Rate 75 Respiratory 18 Rate Blood Pressure 104/73 O2 Sat by Pulse 96 Oximetry Medical Decision Making - Medical Decision Making This is a 81-year-old male who presents to the emergency department for problems with his Castellanos catheter. Ultrasound of the kidneys, ureters, and bladder was obtained. This revealed prostatomegaly and otherwise no acute abnormalities. Urinalysis revealed blood in the urine. His catheter did flush easily. He was noted to have blood clots in the catheter bag. It is possible that these blood clots were causing the blockage. Additionally, his enlarged prostate is likely a contributing factor to the urinary retention. Follow up with urology is scheduled for next week. Instructed him to follow up with them as advised. If the catheter stops draining in the future, advised him to manipulate the tubes again to see if the urine flow will resume. Return precautions reviewed in depth, the patient is instructed to return to the emergency department with any new, worsening, or concerning symptoms. Patient verbalized understanding. This case was discussed in detail with the attending ED physician. Presentation, findings, and treatment plan discussed in detail as well. - Lab Data Lab Results 04/21/22 Range/Units 15:55 Urine Color Yellow Urine Appearance Clear (Clear) Urine pH 6.0 (5.0-8.0) Ur Specific [place] 1.031 (1.001-1.035) Urine Protein 2+ H (Negative) Urine Glucose (UA) Negative (Negative) Urine Ketones Negative (Negative) Urine Blood Large H (Negative) Urine Nitrite Negative (Negative) Urine Bilirubin Negative (Negative) Urine Urobilinogen 2.0 (<2.0) mg/dL Ur Leukocyte Esterase Small H (Negative) Urine RBC >182 H (0-5) /hpf Urine WBC 5 (0-5) /hpf Ur Squamous Epith Cells <1 (0-4) /hpf Urine Bacteria Rare H (None) /hpf Urine Mucus Few H (None) /hpf - Radiology Data Radiology results: report reviewed, image reviewed Disposition Clinical Impression: Castellanos catheter problem Disposition: HOME SELF-CARE Instructions (If sedation given, give patient instructions): Castellanos Catheter Placement and Care (ED) Additional Instructions: Return to the emergency department with any new, worsening, or concerning symptoms. If the catheter seems clogged again, do what you did this time and try to manipulate the tube to see if the urine flow resumes. Follow up with urology as scheduled next week. Is patient prescribed a controlled substance at d/c from ED?: No Referrals: Waqar Rai Jr, DO [Primary Care Provider] - 1-2 days
[2022-04-21 16:09] LABS: Appearance,Urine Clear (Clear); Bacteria,Urine Rare /hpf; Bilirubin,Urine Negative (Negative); Blood,Urine Large (Negative); Color,Urine Yellow; Glucose,Urine (UA) Negative (Negative); Ketones,Urine Negative (Negative); Leukocyte Esterase,Urine Small (Negative); Mucus,Urine Few /hpf; Nitrite,Urine Negative (Negative); Protein,Urine 2+ (Negative); RBC,Urine >182 /hpf (0-5); Specific Gravity,Urine 1.031 (1.001-1.035); Squamous Epithelial Cell,Urine <1 /hpf (0-4); WBC,Urine 5 /hpf (0-5)
--- NOTE | 2022-04-21 16:09 | US ---
EXAMINATION TYPE: US kidneys/renal and bladder DATE OF EXAM: 04/21/2022 COMPARISON: US & CT 2017 CLINICAL HISTORY: Urinary retention, mata catheter not draining. EXAM MEASUREMENTS: Right Kidney: 11.1 x 4.9 x 5.9 cm Left Kidney: 10.2 x 4.9 x 4.4 cm Right Kidney: wnl Left Kidney: wnl Bladder: mata catheter seen Bilateral Jets seen: no Prostate: enlarged at 4.7 x 5.0 x 6.1cm IMPRESSION: Unremarkable kidneys. Mata catheter within the urinary bladder. Enlarged prostate.
== END 2022-04-21 17:26 | disposition home or self-care (01) ==
LOC: EC 13:45
DX: T83.098A Other mechanical complication of other urinary catheter, initial encounter (principal); J44.9 Chronic obstructive pulmonary disease, unspecified; Z88.8 Allergy status to other drugs, medicaments and biological substances; Z88.9 Allergy status to unspecified drugs, medicaments and biological substances
CPT/HCPCS: 76770; 81001; 99284

== ENCOUNTER → 2023-05-07 | Outpatient (CLI) | payer MEDICARE ==
[2023-05-07 13:38] LABS: ALT 19 U/L (10-49); AST 16 U/L (14-35); Albumin/Globulin Ratio 2.11 Ratio (1.60-3.17); Alkaline Phosphatase 85 U/L (41-126); Blood Urea Nitrogen 13.4 mg/dL (9.0-27.0); Calcium 9.3 mg/dL (8.7-10.3); Carbon Dioxide 27.7 mmol/L (21.6-31.8); Chloride 106 mmol/L (96-109); Chol/HDL Ratio 2.96 Ratio; Globulin 1.9 d/dL (1.6-3.3); Glucose 105 mg/dL (70-110); LDL Cholesterol,Calculated 57.2 mg/dL (0.0-131.0); Potassium 4.3 mmol/L (3.5-5.5); Sodium 142 mmol/L (135-145); Total Protein 5.9 d/dL (6.2-8.2)
== END | disposition home or self-care (01) ==
LOC: LABWHC1 08:23
PROVIDERS: ATTEND Internal Medicine Interventional Cardiology
DX: E78.2 Mixed hyperlipidemia (principal)
CPT/HCPCS: 36415; 80053; 80061

== ENCOUNTER → 2023-10-20 | Outpatient (CLI) | payer MEDICARE ==
[2023-10-20 12:36] LABS: NT-Pro-B-Type Natriuretic Pept 1310 pg/mL
[2023-10-20 13:05] LABS: ALT 18 U/L (4-49); AST 22 U/L (17-59); African American GFR (CKD) 86 (>60 ml/min/1.73 sqM); Albumin 3.8 g/dL (3.5-5.0); Albumin/Globulin Ratio 1.6; Alkaline Phosphatase 88 U/L (38-126); Anion Gap 9 mmol/L; Blood Urea Nitrogen 17 mg/dL (9-20); Carbon Dioxide 27 mmol/L (22-30); Chloride 103 mmol/L (98-107); Globulin 2.4 g/dL; Glucose 101 mg/dL (74-99); Non-African American GFR(CKD) 74 (>60 ml/min/1.73 sqM); Potassium 4.3 mmol/L (3.5-5.1); Sodium 139 mmol/L (137-145); Total Protein 6.2 g/dL (6.3-8.2)
[2023-10-20 15:34] LABS: Chol/HDL Ratio 2.51 Ratio; VLDL Calculation 15.88 mg/dL (5.00-40.00)
== END | disposition home or self-care (01) ==
LOC: LABWHC1 09:33
PROVIDERS: ATTEND Internal Medicine Interventional Cardiology
DX: I25.5 Ischemic cardiomyopathy (principal); E78.2 Mixed hyperlipidemia
CPT/HCPCS: 36415; 80053; 80061; 83880